=== PATIENT | male | born 1955 | race Caucasian/White ===

== ENCOUNTER 2017-10-13 03:49 | Inpatient (IN) | payer OTHER ==
[2017-10-13] VITALS (16 sets, daily range): BP systolic 88–153; BP diastolic 60–116; PULSE 75–111; TEMP 36.8–37.5; O2SAT 87–100; Ht 182.9 cm; Wt 57.9 kg
[~2017-10-13] VITALS: Ht 182.9 cm; Wt 57.9 kg
--- NOTE | 2017-10-13 03:54 | EMERGENCY ROOM VISIT NOTE ---
History Report prepared by Jatin: Allen Norman Under the Supervision of: Dr. Shantal Mortensen D.O. First contact with patient: 03:53 Chief Complaint: RESPIRATORY DISTRESS Stated Complaint: RESPIRATORY DISTRESS History of Present Illness The patient is a 62 year old male who presents to the Emergency Room via [facility] for worsening respiratory distress. This HPI is obtained via EMS personnel secondary to respiratory distress and intubation of the patient. The patient initially phoned for EMS due to moderate respiratory distress that he noted he had been experiencing since yesterday. EMS administered a Duoneb Albuterol treatment en route to the department. The patient's O2 saturation began to drop during the second Duoneb treatment. EMS explains that the patient's O2 saturation dropped to below 75 percent as he became unresponsive. The patient was coded and cardiopulmonary resuscitation was performed for 3-4 minutes. The patient was intubated and the O2 saturation levels mary to 99%. He has received Epinephrine, Solumedrol, Magnesium, and Albuterol prior to arrival. The patient coded at approximately 0315, 34 minutes prior to arrival. The patient lives on his own and told EMS that his respiratory distress began yesterday. He notes that he used his inhaler 4+ times throughout the day. Source of History: EMS Onset: One Day [employer] Position: chest (Respiratory) Quality: other (Respiratory Distress) Timing: worsening Review of Systems See HPI for pertinent positives & negatives. A total of 10 systems reviewed and were otherwise negative. Past Medical & Surgical COPD Family History unobtainable secondary to pt status. Social History Drug Use: none Marital Status: single Housing Status: lives alone Current/Historical Medications Unable to Obtain Active Prescriptions or Reported Meds Allergies Coded Allergies: No Known Allergies (Unverified , 10/13/17) Physical Exam Vital Signs Date Time Temp Pulse Resp B/P (MAP) Pulse Ox O2 Delivery O2 Flow Rate FiO2 10/13/17 04:51 114/91 10/13/17 04:46 100 30 97 10/13/17 04:40 126/92 10/13/17 04:37 50 10/13/17 04:36 101 29 123/93 96 10/13/17 04:35 150/145 10/13/17 04:26 104 29 97 10/13/17 04:21 38.3 107/97 10/13/17 04:19 97 17 127/113 98 Mechanical Ventilator 49 10/13/17 04:19 102 19 97 10/13/17 04:11 112/82 10/13/17 04:02 96 Mechanical Ventilator 10/13/17 04:02 97 Mechanical Ventilator 49 10/13/17 04:01 141/116 10/13/17 03:59 100 10/13/17 03:53 127/113 Physical Exam General: Patient is unresponsive, endotracheal tube is in place on ventilator. HEENT: Head - normocephalic and atraumatic. Pupils are 2 millimeters and nonreactive. Extraocular eye muscles are intact and sclera are anicteric. Ears - bilaterally patent canals with noninjected tympanic membranes and no evidence of hemotympanum. Nose - moist nasal mucosa without discharge. Mouth - ET tube is in place. Oropharynx is nonerythematous and there is no tonsillar exudate or edema noted. Neck: Supple; no JVD, cervical lymphadenopathy or nuchal rigidity. Heart: Tachycardic rate with normal rhythm. There is a normal S1 and S2 with no murmurs, clicks, or gallops appreciated. Lungs: There was minimal air exchange to auscultation and slight end expiratory wheeze . Abdomen: Distended, completely nontender, with good bowel sounds. There are no palpable pulsatile masses or hepatosplenomegaly. There is no guarding, rigidity , or rebound noted. Extremities: No evidence of cyanosis, clubbing, or edema. There are easily palpable peripheral pulses. Neuro: GCS of 4. Unresponsive to painful or verbal stimuli. Medical Decision & Procedures ER Provider Diagnostic Interpretation: Radiology results as stated below per my review and the radiologist's interpretation: CHEST X-RAY portable upright CHEST X-RAY #1: Shows endotracheal tube at the [place]. Hyper-aerated lung serra present. No obvious pulmonary consolidation or pneumothorax. CHEST X-RAY #2: the endotracheal tube was 2-3 cm above the madelin. Laboratory Results 10/13/17 03:10 Red Blood Count 5.16, Mean Corpuscular Volume 93.2, Mean Corpuscular Hemoglobin 31.6, Mean Corpuscular Hemoglobin Concent 33.9, Mean Platelet Volume 10.4, Neutrophils (%) (Auto) 59.4, Lymphocytes (%) (Auto) 19.5, Monocytes (%) (Auto) 20.4, Eosinophils (%) (Auto) 0.1, Basophils (%) (Auto) 0.2, Neutrophils # (Auto ) 4.80, Lymphocytes # (Auto) 1.58, Monocytes # (Auto) 1.65, Eosinophils # (Auto ) 0.01, Basophils # (Auto) 0.02 10/13/17 03:10 Test 10/13/17 03:10 10/13/17 04:04 10/13/17 04:10 10/13/17 04:16 White Blood Count 8.09 K/uL (4.8-10.8) Red Blood Count 5.16 M/uL (4.7-6.1) Hemoglobin 16.3 g/dL (14.0-18.0) Hematocrit 48.1 % (42-52) Mean Corpuscular Volume 93.2 fL (80-100) Mean Corpuscular Hemoglobin 31.6 pg (25-34) Mean Corpuscular Hemoglobin Concent 33.9 g/dl (32-36) Platelet Count 221 K/uL (130-400) Mean Platelet Volume 10.4 fL (7.4-10.4) Neutrophils (%) (Auto) 59.4 % Lymphocytes (%) (Auto) 19.5 % Monocytes (%) (Auto) 20.4 % Eosinophils (%) (Auto) 0.1 % Basophils (%) (Auto) 0.2 % Neutrophils # (Auto) 4.80 K/uL (1.4-6.5) Lymphocytes # (Auto) 1.58 K/uL (1.2-3.4) Monocytes # (Auto) 1.65 K/uL (0.11-0.59) Eosinophils # (Auto) 0.01 K/uL (0-0.5) Basophils # (Auto) 0.02 K/uL (0-0.2) RDW Standard Deviation 47.1 fL (36.4-46.3) RDW Coefficient of Variation 13.9 % (11.5-14.5) Immature Granulocyte % (Auto) 0.4 % Immature Granulocyte # (Auto) 0.03 K/uL (0.00-0.02) Prothrombin Time 10.3 SECONDS (9.0-12.0) Prothromb Time International Ratio 1.0 (0.9-1.1) Activated Partial Thromboplast Time 26.5 SECONDS (21.0-31.0) Partial Thromboplastin Ratio 1.0 Anion Gap 7.0 mmol/L (3-11) Est Creatinine Clear Calc Drug Dose 83.2 ml/min Estimated GFR () 88.8 Estimated GFR (Non- 76.6 BUN/Creatinine Ratio 19.9 (10-20) Calcium Level 8.6 mg/dl (8.5-10.1) Total Bilirubin 0.3 mg/dl (0.2-1) Aspartate Amino Transf (AST/SGOT) 18 U/L (15-37) Alanine Aminotransferase (ALT/SGPT) 27 U/L (12-78) Alkaline Phosphatase 65 U/L (45-117) Total Creatine Kinase 262 U/L (39-308) Creatine Kinase MB 2.3 ng/ml (0.5-3.6) Troponin I 0.025 ng/ml (0-0.045) Pro-B-Type Natriuretic Peptide 479 pg/ml (0-900) Total Protein 8.4 gm/dl (6.4-8.2) Albumin 4.3 gm/dl (3.4-5.0) Globulin 4.1 gm/dl (2.5-4.0) Albumin/Globulin Ratio 1.0 (0.9-2) Creatine Kinase MB Ratio (0-3.0) Bedside Blood Gas pH (LAB) 7.24 (7.35-7.45) Bedside Blood Gas pCO2 (LAB) 62 mmHg (35-46) Bedside Blood Gas pO2 (LAB) 305 mmHg (80-95) Bedside Blood Gas HCO3 (LAB) 26 meq/L (19-24) Bedside Blood Gas Total CO2 28 mEq/l (24-31) Bedside Blood Gas Base Excess (LAB) -1.0 meq/L (-9-1.8) Bedside Blood Gas O2 Saturation 100.0 % (90-95) Test 10/13/17 04:21 10/13/17 04:25 10/13/17 05:24 Urine Color YELLOW Urine Appearance CLEAR (CLEAR) Urine pH 5.5 (4.5-7.5) Urine Specific [place] 1.021 (1.000-1.030) Urine Protein 2+ (NEG) Urine Glucose (UA) 3+ (NEG) Urine Ketones NEG (NEG) Urine Occult Blood 2+ (NEG) Urine Nitrite NEG (NEG) Urine Bilirubin NEG (NEG) Urine Urobilinogen NEG (NEG) Urine Leukocyte Esterase NEG (NEG) Urine WBC (Auto) 10-30 /hpf (0-5) Urine RBC (Auto) 5-10 /hpf (0-4) Urine Hyaline Casts (Auto) 5-10 /lpf (0-5) Urine Epithelial Cells (Auto) >30 /lpf (0-5) Urine Bacteria (Auto) 1+ (NEG) Urine Renal Epithelial Cells /lpf (0-5) Urine Pathogenic Casts 1-5 GRANULAR CASTS /lpf (0) Urine Yeast (Auto) BUDDING (NONE PRSENT) Bedside Lactic Acid Venous 3.69 mmol/L (0.90-1.70) Lactic Acid Level 3.0 mmol/L (0.4-2.0) Laboratory results per my review. Medications Administered Medications (Trade) Dose Ordered Sig/Brook Route Start Time Stop Time Status Last Admin Dose Admin Midazolam HCl (Versed Inj) 10 mg STK-MED ONCE .ROUTE 10/13/17 03:57 10/13/17 03:58 DC 10/13/17 03:57 5 MG Albuterol (Ventolin Hfa Inhaler) 60 puffs STK-MED ONCE INH 10/13/17 04:17 10/13/17 04:18 DC 10/13/17 04:37 60 PUFFS Propofol (Diprivan Iv Emulsion 20ml Vial) 200 mg STK-MED ONCE IV 10/13/17 05:06 10/13/17 05:07 DC 10/13/17 05:25 40 MG Propofol (Diprivan Iv Emulsion 100ml Vial) 1 dose STK-MED ONCE IV 10/13/17 05:06 10/13/17 05:07 DC 10/13/17 05:25 1 DOSE Piperacillin Sod/ Tazobactam Sod (Zosyn Iv) 4.5 gm NOW STAT IV 10/13/17 05:13 10/13/17 05:24 DC 10/13/17 05:44 4.5 GM Procedure Medications Ordered: Versed, Albuterol. Propofol bolus Propofol drip ECG Indication: SOB/dyspnea Rate (beats per minute): 95 Rhythm: normal sinus Findings: PVC, ST depression (Inferior) ED Course 0349: Past medical records reviewed. The patient was evaluated in room B1. A complete history and physical exam was performed. Labs were drawn as above. A portable chest x-ray was obtained. A 12-lead EKG was obtained. The endotracheal tube was pulled back by 2 cm. 0357: The patient started to metzger the vent. I Ordered Versed 5 mg IV. 0417: Ordered Albuterol 10 puffs INH. 0438: I discussed the case with Eleazar Chao [facility] Critical Care at this time. 0440: I discussed the case at the bedside with the PA. 0445: I attempted to call the patient's name but he did not respond. He will withdraw his legs to painful stimuli. The patient was bolused with 40 mg of IV propofol and started on a propofol drip at 10 mcg/kg/m. 0449: I discussed the case with Linsey Yisel at this time. She states that her and her are probably Liborio's closest friends. He does not have any family. The patient went out with Liborio on Friday night, they said he seemed to have a cold. 0459: I discussed the case with Dr. Jones Adams Hospitalist and he will put the order in for inpatient bed 0509: The patient began bucking the vent again at this time. His propofol drip was increased to 15 mcg/kg/m. Medical Decision The patient is a 62 year old male who presents to the Emergency Department in respiratory distress. Differential Diagnosis includes; Sepsis, pneumonia, hypercarbic respiratory failure, COPD exacerbation, cardiac arrest, respiratory arrest. Laboratory Studies were reviewed and show; Normal white count, stable hemoglobin and hematocrit, lactic acid of 3.69, BUN of 21, Creatinine of 1.0, LFTs are normal, glucose of 111, LFTs are normal, CNB of 2.3, Troponin of 0.025 , normal coagulation studies. Arterial Blood Gas reading was reviewed and shows; pH of 7.24, PCO2 of 62, PO2 of 305, bicarb of 26 which is consistent with respiratory acidosis. This is a 62-year-old male patient who has had increasing respiratory distress over the past 24 hours. He has a history of COPD. He called EMS this evening. Upon their arrival, the found the patient outside of his trailer in mild respiratory distress. O2 saturations were in the 70s. The patient began to receive a DuoNeb treatment. His O2 saturations initially improved for EMS. However the wheezing persisted and he was then placed on albuterol. He was given IV Solu-Medrol and started on a magnesium drip. During this intervention , the patient went unresponsive. EMS performed an elective intubation. After securing the endotracheal tube, the patient went asystolic for approximately 3- 4 minutes. Chest compressions and bag valve ventilation were performed through the ET tube. The patient received one cardiac dose of epi. The patient was found to be febrile here in the emergency department. A septic protocol was performed. We did attempt to contact the next of kin. We were able to get some basic information from [facility] as this is the typical place where the patient goes for his healthcare. He has no known allergies. His PCP is Dr. Gramajo. His baseline creatinine is 1.12. His baseline hemoglobin is 15.3. The patient takes nebulizers and inhalers at home. He is currently being treated with prednisone and he takes lisinopril daily. Head Trauma GCS Score: 4 Medication Reconcilliation Current Medication List: was personally reviewed by me Blood Pressure Screening Patient's blood pressure: Normal blood pressure Consults Time Called: 043 Consulting Physician: Eleazar Delgado PA-C [facility] [place] Returned Call: [phone] I discussed the case with Eleazar [facility] Critical [facility] at this time. Additional Consults: Time Called: [phone] Consulted Physician: Dr. Goldman Returned Call: [phone] Additional Comments: I discussed the case with Dr. Jones Adams Hospitalist he will evaluate the patient for further treatment. Impression Primary Impression: Acute respiratory failure Additional Impression: Cardiac arrest Critical Care I have personally spent greater than 90 minutes of critical care time in the direct management of this patient. This includes bedside care, interpretation of diagnostic studies, and testing, discussion with consultants, patient, and family members, and other required patient management activities. This 90 minutes is in excess of all separately billable procedures. Scribe Attestation The scribe's documentation has been prepared under my direction and personally reviewed by me in its entirety. I confirm that the note above accurately reflects all work, treatment, procedures, and medical decision making performed by me. Departure Information Dispostion Being Evaluated By Hospitalist Prescriptions Unable to Obtain Active Prescriptions or Reported Meds Patient Instructions Asthma - [facility], COPD - [facility], Croup - [facility], My [place] [facility] Problem Qualifiers Primary Impression: Acute respiratory failure Respiratory failure complication: hypoxia and hypercapnia Qualified Codes: J96.01 - Acute respiratory failure with hypoxia; J96.02 - Acute respiratory failure with hypercapnia
[2017-10-13] MEDS ORDERED: MIDAZOLAM HCL 5 MG/ML 2ML VIAL ONE (03:57)
[2017-10-13 04:16] LABS: BASO % 0.2 %; BASO ABS # 0.02 K/uL (0-0.2); COMPLETE YES; EOS % 0.1 %; HEMATOCRIT 48.1 % (42-52); IG% 0.4 %; LYMPH % 19.5 %; LYMPH ABS # 1.58 K/uL (1.2-3.4); MEAN CELL VOLUME 93.2 fL (80-100); MEAN CORPUSCULAR HEMOGLOBIN 31.6 pg (25-34); MEAN CORPUSCULAR HGB CONC 33.9 g/dl (32-36); MEAN PLATELET VOLUME 10.4 fL (7.4-10.4); MONO % 20.4 %; NEUT % 59.4 %; PLATELET COUNT 221 K/uL (130-400); RED BLOOD COUNT 5.16 M/uL (4.7-6.1); WHITE BLOOD COUNT 8.09 K/uL (4.8-10.8)
[2017-10-13] MEDS ORDERED: ALBUTEROL HFA 8 GM INHALER INH ONE (04:17)
[2017-10-13 04:30] LABS: PROTHROMBIN TIME (PATIENT) 10.3 SECONDS (9.0-12.0)
[2017-10-13 04:31] LABS: BUN/CREATININE RATIO 19.9 (10-20); CALCIUM 8.6 mg/dl (8.5-10.1); CREATININE 1.04 mg/dl (0.60-1.40); POTASSIUM 3.5 mmol/L (3.5-5.1)
[2017-10-13 04:34] LABS: URINE APPEARANCE CLEAR (CLEAR); URINE BILIRUBIN NEG (NEG); URINE COLOR YELLOW; URINE EPITHELIAL CELL AUTO >30 /lpf (0-5); URINE NITRITE NEG (NEG); URINE PH 5.5 (4.5-7.5); URINE SPECIFIC GRAVITY 1.021 (1.000-1.030); UROBILINOGEN NEG (NEG); ZZURINE CULT IF INDIC CATH YES
[2017-10-13 04:36] LABS: CKMB/CK RATIO 0.9 (0-3.0)
[2017-10-13 04:40] LABS: ISTAT ARTERIAL BLOOD GAS HCO3 26 meq/L (19-24); ISTAT ARTERIAL BLOOD GAS PCO2 62 mmHg (35-46); ISTAT ARTERIAL BLOOD GAS PO2 305 mmHg (80-95); ISTAT ARTERIAL BLOOD GAS pH 7.24 (7.35-7.45); ISTAT CARBON DIOXIDE 28 mEq/l (24-31)
[2017-10-13 04:54] LABS: MANUAL MICROSCOPIC REQUIRED? NO; REVIEW REQ? YES
[2017-10-13] MEDS ORDERED: PROPOFOL IV EMULSION 10 MG/ML 100 ML VIAL IV ONE (05:06)
[2017-10-13] MEDS ORDERED: PROPOFOL IV EMULSION 10 MG/ML 20 ML VIAL IV ONE (05:06)
[2017-10-13 05:09] LABS: URINE PATH CASTS 1-5 GRANULAR CASTS /lpf (0)
[2017-10-13] MEDS ORDERED: PIPERACILLIN/TAZOBACTAM 4.5 GM/100ML D5W IV STA (05:13)
[2017-10-13] MEDS ORDERED: VANCOMYCIN INJ 1,000 MG in SODIUM CHLORIDE 0.9% 250ML 250 ML IV STA (05:13)
[2017-10-13] MEDS ORDERED: SODIUM CHLORIDE 0.9% 1000ML 1,000 ML IV SCH (05:15)
[2017-10-13] MEDS ORDERED: MIDAZOLAM 125MG/250ML D5W 250 ML IV PRN (05:29)
[2017-10-13] MEDS ORDERED: CISATRACURIUM IV BOLUS & DRIP IV STA (05:29)
[2017-10-13] MEDS ORDERED: ARTIFICIAL TEARS OP OINT 3.5 GM TUBE OPB PRN (05:30)
[2017-10-13] MEDS ORDERED: MEPERIDINE HCL 25 MG/ML CARP IV PRN (05:30)
[2017-10-13] MEDS ORDERED: PATIENT'S ALLERGY INFO NEEDS ENTERED SCH (05:30)
--- NOTE | 2017-10-13 05:42 | History and Physical ---
History & Physical Date & Time of Service: Oct 13, 2017 at 05:28 Chief Complaint: Respiratory Distress Primary Care Physician: No Doctor, Assigned History of Present Illness Source: EMS This is a 62 year old male who called EMS earlier today; the records are obtained from EMS and ED physician. Pt. called EMS due to respiratory distress - EMS was giving a neb treatment en route to the ED and noted that he became severely hypoxic in the 70s. Subsequently developed cardiopulmonary arrest - CPR was performed for around 3-4 minutes - he was given epinephrine, Mg, and solu-medrol - Was intubated. Upon presentation to the ED - noted to have a fever. Lab work was performed and he was noted to have lactic acidosis. ABGs suggested significant acidosis and hypercapnia. Patient on propofol drip and intubated at this time. Social History Smoking Status: Unknown if Ever Smoked Drug Use: none Marital Status: single Allergies Coded Allergies: No Known Allergies (Unverified , 10/13/17) Home Medications Unable to Obtain Active Prescriptions or Reported Meds Review of Systems Unable to obtain due to intubation Physical Exam Vital Signs Date Time Temp Pulse Resp B/P (MAP) Pulse Ox O2 Delivery O2 Flow Rate FiO2 10/13/17 04:51 114/91 10/13/17 04:46 100 30 97 10/13/17 04:40 126/92 10/13/17 04:37 50 10/13/17 04:36 101 29 123/93 96 10/13/17 04:35 150/145 10/13/17 04:26 104 29 97 10/13/17 04:21 38.3 107/97 10/13/17 04:19 97 17 127/113 98 Mechanical Ventilator 49 10/13/17 04:19 102 19 97 10/13/17 04:11 112/82 10/13/17 04:02 96 Mechanical Ventilator 10/13/17 04:02 97 Mechanical Ventilator 49 10/13/17 04:01 141/116 10/13/17 03:59 100 10/13/17 03:53 127/113 General Appearance: + pertinent finding (Patient intubated, sedated) Head: normocephalic, atraumatic Eyes: normal inspection ENT: hearing grossly normal Respiratory/Chest: no respiratory distress, no accessory muscle use, + pertinent finding (intubated) Cardiovascular: regular rate, rhythm, no edema, no murmur Abdomen/GI: normal bowel sounds, non tender, soft Genitourinary - Male: + pertinent finding (+Banda) Extremities/Musculoskelatal: normal inspection, no calf tenderness, normal capillary refill, no pedal edema, normal range of motion Neurologic/Psych: + pertinent finding (intubated, sedated, not responding to verbal or tactile stimuli) Skin: + pertinent finding (+pale) Diagnostics Laboratory Results Results Past 24 Hours Test 10/13/17 03:10 10/13/17 04:04 10/13/17 04:10 10/13/17 04:21 Range/Units White Blood Count 8.09 4.8-10.8 K/uL Red Blood Count 5.16 4.7-6.1 M/uL Hemoglobin 16.3 14.0-18.0 g/dL Hematocrit 48.1 42-52 % Mean Corpuscular Volume 93.2 80-100 fL Mean Corpuscular Hemoglobin 31.6 25-34 pg Mean Corpuscular Hemoglobin Concent 33.9 32-36 g/dl Platelet Count 221 130-400 K/uL Mean Platelet Volume 10.4 7.4-10.4 fL Neutrophils (%) (Auto) 59.4 % Lymphocytes (%) (Auto) 19.5 % Monocytes (%) (Auto) 20.4 % Eosinophils (%) (Auto) 0.1 % Basophils (%) (Auto) 0.2 % Neutrophils # (Auto) 4.80 1.4-6.5 K/uL Lymphocytes # (Auto) 1.58 1.2-3.4 K/uL Monocytes # (Auto) 1.65 0.11-0.59 K/uL Eosinophils # (Auto) 0.01 0-0.5 K/uL Basophils # (Auto) 0.02 0-0.2 K/uL RDW Standard Deviation 47.1 36.4-46.3 fL RDW Coefficient of Variation 13.9 11.5-14.5 % Immature Granulocyte % (Auto) 0.4 % Immature Granulocyte # (Auto) 0.03 0.00-0.02 K/uL Prothrombin Time 10.3 9.0-12.0 SECONDS Prothromb Time International Ratio 1.0 0.9-1.1 Activated Partial Thromboplast Time 26.5 21.0-31.0 SECONDS Partial Thromboplastin Ratio 1.0 Sodium Level 139 136-145 mmol/L Potassium Level 3.5 3.5-5.1 mmol/L Chloride Level 101 98-107 mmol/L Carbon Dioxide Level 31 21-32 mmol/L Anion Gap 7.0 3-11 mmol/L Blood Urea Nitrogen 21 7-18 mg/dl Creatinine 1.04 0.60-1.40 mg/dl Est Creatinine Clear Calc Drug Dose 83.2 ml/min Estimated GFR () 88.8 Estimated GFR (Non- 76.6 BUN/Creatinine Ratio 19.9 10-20 Random Glucose 111 70-99 mg/dl Calcium Level 8.6 8.5-10.1 mg/dl Total Bilirubin 0.3 0.2-1 mg/dl Aspartate Amino Transf (AST/SGOT) 18 15-37 U/L Alanine Aminotransferase (ALT/SGPT) 27 12-78 U/L Alkaline Phosphatase 65 45-117 U/L Total Creatine Kinase 262 39-308 U/L Creatine Kinase MB 2.3 0.5-3.6 ng/ml Creatine Kinase MB Ratio 0.9 0-3.0 Troponin I 0.025 0-0.045 ng/ml Pro-B-Type Natriuretic Peptide 479 0-900 pg/ml Total Protein 8.4 6.4-8.2 gm/dl Albumin 4.3 3.4-5.0 gm/dl Globulin 4.1 2.5-4.0 gm/dl Albumin/Globulin Ratio 1.0 0.9-2 Bedside Blood Gas pH (LAB) 7.24 7.35-7.45 Bedside Blood Gas pCO2 (LAB) 62 35-46 mmHg Bedside Blood Gas pO2 (LAB) 305 80-95 mmHg Bedside Blood Gas HCO3 (LAB) 26 19-24 meq/L Bedside Blood Gas Total CO2 28 24-31 mEq/l Bedside Blood Gas Base Excess (LAB) -1.0 -9-1.8 meq/L Bedside Blood Gas O2 Saturation 100.0 90-95 % Urine Color YELLOW Urine Appearance CLEAR CLEAR Urine pH 5.5 4.5-7.5 Urine Specific [place] 1.021 1.000-1.030 Urine Protein 2+ NEG Urine Glucose (UA) 3+ NEG Urine Ketones NEG NEG Urine Occult Blood 2+ NEG Urine Nitrite NEG NEG Urine Bilirubin NEG NEG Urine Urobilinogen NEG NEG Urine Leukocyte Esterase NEG NEG Urine WBC (Auto) 10-30 0-5 /hpf Urine RBC (Auto) 5-10 0-4 /hpf Urine Hyaline Casts (Auto) 5-10 0-5 /lpf Urine Epithelial Cells (Auto) >30 0-5 /lpf Urine Bacteria (Auto) 1+ NEG Urine Renal Epithelial Cells 0-5 /lpf Urine Pathogenic Casts 1-5 GRANULAR CASTS 0 /lpf Urine Yeast (Auto) BUDDING NONE PRSENT Test 10/13/17 04:25 10/13/17 05:24 Range/Units Bedside Lactic Acid Venous 3.69 0.90-1.70 mmol/L Microbiology Results 10/13/17 Blood Culture, Received Pending 10/13/17 Blood Culture, Received Pending 10/13/17 Urine Culture, Received Pending EKG Sinus rhythm with Premature supraventricular complexes Nonspecific ST and T wave abnormality Impression Assessment and Plan Patient is a 62 year old male presented secondary to respiratory distress and subsequently cardiopulmonary arrest Cardiopulmonary Arrest unsure of the underlying etiology seems to have had sudden respiratory distress coded on the way to the hospital, resuscitated after 3-4 minutes of CPR, intubated on the field Brought to the ED - fevers, lactic acidosis, ABG suggests acidosis, hypercapnia hypothermia protocol as per ICU vent management as per ICU started Vancomycin + Zosyn blood cultures, urine culture pending started IVFs repeat lactic acid - elevated due to hypoxia, but started on fluids/abx. in case of underlying infection trend cardiac markers, check echo fire chief deputy consulted DVT ppx Lovenox FULL CODE VTE Prophylaxis VTE Risk Assessment Done? Y/N: Yes Risk Level: Not Assessed
[2017-10-13] MEDS ORDERED: VANCOMYCIN INJ 2,000 MG in SODIUM CHLORIDE 0.9% 500ML 500 ML IV STA (05:57)
[2017-10-13] MEDS ORDERED: CISATRACURIUM BESYLATE INJ 40 MG in SODIUM CHLORIDE 0.9% 100ML 80 ML IV PRN (06:00)
--- NOTE | 2017-10-13 06:00 | Critical Care Consultation ---
Critical Care Consultation Date of Consultation: Oct 13, 2017. Attending Physician: Reason for Consultation: 62-year-old male with witnessed cardiac arrest requiring CPR for 3-4 minutes and epinephrine with return of spontaneous circulation. Patient is candidate for therapeutic hypothermia requiring close ICU monitoring. History of Present Illness Patient is a 62-year-old male who presented to the emergency department intubated after a witnessed cardiac arrest requiring CPR for 3-4 minutes with one dose of epinephrine. Patient had returned to spontaneous circulation after this time. He is required minimal sedation. He received 5 mg Versed intravenously in the emergency department. Per emergency department provider and records, the patient had contacted 911 as he felt unwell for the past 24 hours. He had shortness of breath and worsening cough. The patient does have a history of COPD with exacerbations. Upon arrival, the patient was awake and conversant with EMS crew. They found his oxygen saturation to be in the 70s. At this time, he received an albuterol treatment. His pulse oximetry improved to the 90s. He was actually holding the device while administering his own treatment when he dropped the device and became extremely bradycardic in the 20s. While preparing to intubate, the patient went asystolic. 3-4 minutes of CPR and 1 dose of epinephrine was a grocery buyer the patient with ROSC. The patient has no leukocytosis. He has no worrisome anemia. No significant metabolic arrangement. Elevated lactic acid at 3.69. Initial troponin negative. ABG demonstrates pH7.24, pCO2 62, pO2 305, HCO3 26. Emergency Department staff was able to speak to the patient's friend who informs them that he has no immediate family. Medical records were sought after at the [facility] emergency department where the patient typically seeks medical care. Past Medical/Surgical History COPD Unable to obtain secondary to patient's state of intubation and unresponsiveness. Family History Unable to obtain secondary to patient's state of unresponsiveness and intubation. Social History Unable to obtain secondary to patient's state of unresponsiveness and intubation. Smoking Status: Unknown if Ever Smoked Drug Use: none Marital Status: single Housing Status: lives alone Allergies Coded Allergies: No Known Allergies (Unverified , 10/13/17) Home Medications Unable to Obtain Active Prescriptions or Reported Meds Current Inpatient Medications Current Inpatient Medications Medications (Trade) Dose Ordered Sig/Brook Route Start Time Stop Time Status Last Admin Dose Admin Enoxaparin Sodium (Lovenox Inj) 40 mg Q24H SQ 10/13/17 05:00 11/12/17 04:59 UNV Sodium Chloride 1,000 ml @ 100 mls/hr Q10H IV 10/13/17 05:15 11/12/17 05:14 UNV Piperacillin Sod/ Tazobactam Sod 3.375 gm/Dextrose 115 ml @ 28.75 mls/ hr Q8 IV 10/13/17 06:00 10/15/17 05:59 UNV Vancomycin HCl 1000 mg/Sodium Chloride 270 ml @ 125 mls/hr Q12 IV 10/13/17 09:00 10/15/17 08:59 UNV Vancomycin HCl 1000 mg/Sodium Chloride 270 ml @ 125 mls/hr NOW STAT IV 10/13/17 05:13 10/13/17 07:22 UNV Parenteral Electrolyte Solution 1,000 ml @ 100 mls/hr Q10H IV 10/13/17 05:30 11/12/17 05:29 UNV Miscellaneous Information (Patient'S Allergy Info Needs Entered) 1 ea Q30M N/A 10/13/17 05:30 11/12/17 05:29 Artificial Tears (Lacri-Lube Oph Oint) 1 appln Q2H PRN OPB 10/13/17 05:30 11/12/17 05:29 UNV Pantoprazole Sodium 40 mg/ Syringe 10 ml @ 5 mls/min DAILY@11 IV 10/13/17 11:00 11/12/17 10:59 UNV Midazolam HCl 250 ml @ 0 mls/hr Q0M STAT IV 10/13/17 05:29 10/13/17 05:30 UNV Fentanyl Citrate 250 ml @ 0 mls/hr Q0M IV 10/13/17 05:29 10/27/17 05:28 UNV Cisatracurium Besylate (Nimbex IV BOLUS & DRIP) 1 ea NOW STAT IV 10/13/17 05:29 10/13/17 05:30 UNV Meperidine HCl (Demerol Inj) 25 mg Q2H PRN IV 10/13/17 05:30 10/27/17 05:29 UNV Ipratropium Energy (Atrovent Hfa Inhaler) 4 puffs Q4 INH 10/13/17 08:00 11/12/17 07:59 UNV Review of Systems Unable to obtain. Physical Exam Date Time Temp Pulse Resp B/P (MAP) Pulse Ox O2 Delivery O2 Flow Rate FiO2 10/13/17 04:51 114/91 10/13/17 04:46 100 30 97 10/13/17 04:40 126/92 10/13/17 04:37 50 10/13/17 04:36 101 29 123/93 96 10/13/17 04:35 150/145 10/13/17 04:26 104 29 97 10/13/17 04:21 38.3 107/97 10/13/17 04:19 97 17 127/113 98 Mechanical Ventilator 49 10/13/17 04:19 102 19 97 10/13/17 04:11 112/82 10/13/17 04:02 96 Mechanical Ventilator 10/13/17 04:02 97 Mechanical Ventilator 49 10/13/17 04:01 141/116 10/13/17 03:59 100 10/13/17 03:53 127/113 VITAL SIGNS - Vital signs and nursing notes were reviewed. GENERAL - 62-year-old male appearing his stated age who is intubated with dyssynchronous breathing with the ventilator. SKIN - Without rashes. HEAD - NC/AT. EYES - Pupils equal and sluggish bilaterally. EARS - No deformities of external structures noted on gross examination bilaterally. NOSE - Midline and without cyanosis. MOUTH/OROPHARYNX - Without perioral cyanosis. NECK - Neck with FROM. Supple to palpation. LUNGS - Chest wall symmetric without accessory muscle use, intercostals retractions, or central cyanosis. Diffuse inspiratory and expiratory wheezes appreciated throughout all lung serra. CARDIAC - RRR with S1/S2. No murmur, rubs, or gallops appreciated. ABDOMEN - Abdominal contour obese without pulsations or visible masses. BS normoactive all four quadrants. No tenderness, palpable masses, hepatosplenomegaly, or ascites noted. EXTREMITIES - No clubbing or peripheral cyanosis. No pretibial edema present. +3 /5 radial and dorsalis pedis pulses palpated throughout. NEUROLOGIC - Unresponsive to painful stimulus. Laboratory Results Last 24 Hours Test 10/13/17 03:10 10/13/17 04:04 10/13/17 04:10 10/13/17 04:21 White Blood Count 8.09 K/uL Red Blood Count 5.16 M/uL Hemoglobin 16.3 g/dL Hematocrit 48.1 % Mean Corpuscular Volume 93.2 fL Mean Corpuscular Hemoglobin 31.6 pg Mean Corpuscular Hemoglobin Concent 33.9 g/dl Platelet Count 221 K/uL Mean Platelet Volume 10.4 fL Neutrophils (%) (Auto) 59.4 % Lymphocytes (%) (Auto) 19.5 % Monocytes (%) (Auto) 20.4 % Eosinophils (%) (Auto) 0.1 % Basophils (%) (Auto) 0.2 % Neutrophils # (Auto) 4.80 K/uL Lymphocytes # (Auto) 1.58 K/uL Monocytes # (Auto) 1.65 K/uL Eosinophils # (Auto) 0.01 K/uL Basophils # (Auto) 0.02 K/uL RDW Standard Deviation 47.1 fL RDW Coefficient of Variation 13.9 % Immature Granulocyte % (Auto) 0.4 % Immature Granulocyte # (Auto) 0.03 K/uL Prothrombin Time 10.3 SECONDS Prothromb Time International Ratio 1.0 Activated Partial Thromboplast Time 26.5 SECONDS Partial Thromboplastin Ratio 1.0 Sodium Level 139 mmol/L Potassium Level 3.5 mmol/L Chloride Level 101 mmol/L Carbon Dioxide Level 31 mmol/L Anion Gap 7.0 mmol/L Blood Urea Nitrogen 21 mg/dl Creatinine 1.04 mg/dl Est Creatinine Clear Calc Drug Dose 83.2 ml/min Estimated GFR () 88.8 Estimated GFR (Non- 76.6 BUN/Creatinine Ratio 19.9 Random Glucose 111 mg/dl Calcium Level 8.6 mg/dl Total Bilirubin 0.3 mg/dl Aspartate Amino Transf (AST/SGOT) 18 U/L Alanine Aminotransferase (ALT/SGPT) 27 U/L Alkaline Phosphatase 65 U/L Total Creatine Kinase 262 U/L Creatine Kinase MB 2.3 ng/ml Creatine Kinase MB Ratio 0.9 Troponin I 0.025 ng/ml Pro-B-Type Natriuretic Peptide 479 pg/ml Total Protein 8.4 gm/dl Albumin 4.3 gm/dl Globulin 4.1 gm/dl Albumin/Globulin Ratio 1.0 Bedside Blood Gas pH (LAB) 7.24 Bedside Blood Gas pCO2 (LAB) 62 mmHg Bedside Blood Gas pO2 (LAB) 305 mmHg Bedside Blood Gas HCO3 (LAB) 26 meq/L Bedside Blood Gas Total CO2 28 mEq/l Bedside Blood Gas Base Excess (LAB) -1.0 meq/L Bedside Blood Gas O2 Saturation 100.0 % Urine Color YELLOW Urine Appearance CLEAR Urine pH 5.5 Urine Specific [place] 1.021 Urine Protein 2+ Urine Glucose (UA) 3+ Urine Ketones NEG Urine Occult Blood 2+ Urine Nitrite NEG Urine Bilirubin NEG Urine Urobilinogen NEG Urine Leukocyte Esterase NEG Urine WBC (Auto) 10-30 /hpf Urine RBC (Auto) 5-10 /hpf Urine Hyaline Casts (Auto) 5-10 /lpf Urine Epithelial Cells (Auto) >30 /lpf Urine Bacteria (Auto) 1+ Urine Renal Epithelial Cells /lpf Urine Pathogenic Casts 1-5 GRANULAR CASTS /lpf Urine Yeast (Auto) BUDDING Test 10/13/17 04:25 10/13/17 05:24 10/13/17 05:34 Bedside Lactic Acid Venous 3.69 mmol/L Diagnostic Results Initial chest x-ray reveals ET tube near the RIGHT mainstem bronchus. Repeat film demonstrates ET tube in appropriate position. No pneumothorax appreciated per my interpretation. No acute infiltrates noted. Radiologist's impression unavailable to time of dictation. Assessment & Plan (1) COPD with exacerbation (2) Cardiac arrest (3) Acute respiratory failure Reason Critically Ill: 62-year-old male with witnessed cardiac arrest requiring CPR for 3-4 minutes and epinephrine with return of spontaneous circulation. Patient is candidate for therapeutic hypothermia requiring close ICU monitoring. Neuro - * CAM ICU: Unable to assess 2/2 RASS -4 * Sedation: orders for Versed/Fentanyl - Propofol not tolerated in ED 2/2 hypotension. * Paralysis: Nimbex gtt 2/2 Therapeutic Hypothermia - Train of 4 per protocol. * Neuro checks per protocol. * Spoke with Dr. Hyatt who agrees with 24 hr EEG per protocol. * Appreciate consultation. Cardiac - * Witnessed Cardiac Arrest requiring 3-4 min CPR w/ 1 dose of epinephrine w/ ROSC - Initiated Code Arctic (Therapeutic Hypothermia): * Orders for goal of hypothermia between 32-34C for 24 hrs w/ slow rewarming. * Echo Ordered. * Consult Cardiology. * Pressors for support if needed. * Will insert A-line for accurate BP monitoring. * Telemetry * Unknown history at this point. Respiratory - * History of COPD w/ acute exacerbation requiring intubation: * Aggressive pulmonary toilet. * Albuterol/Atrovent * Solu-Medrol * Current vent settings: 12min/500mL/5PEEP/50% * Poor lung sounds - ??utility of bronch * Serial CXRs GI - * Prophylaxis - Protonix * NPO - consider tube feeds if not requiring pressors. RENAL/LYTES - * No acute metabolic derangement. * Monitor electrolytes - replace appropriately - * Banda Catheter in place. * Strict I&Os ENDO - * Unknown h/o DM * BSGs per protocol. HEME - * Stable H&H. * Will monitor daily. ID - * Will cover with Vanc/Zosyn in the setting of Acute Respiratory Failure 2/2 COPD exacerbation. * Blood Cultures Pending * ??BAL if Bronch felt needed. * Added ProCal - can trend. * Lactic Acid elevated likely 2/2 hypoxia - will trend as respiratory status improves. LINES/IV ACCESS - * PIVs intact. * Will place CVL with emergent consent. * Will place Art Line with emergent consent. * Banda Catheter. DVT PROPHYLAXIS - * Lovenox I have personally spent 45 minutes of critical care time in the direct management of this patient. This is a life/limb threatening event. This includes time spent evaluating patient, direct bedside care, chart review, placing orders, interpretation of diagnostic studies, discussion with consultants, patient, and family members, as well as other required patient management activities. This time is exclusive of all separately billable procedures, and teaching time and separate from and in addition to any other critical care service time. Thank you for this consultation allow us to be part of this patient's care. Please refer to my attending physician's documentation for any further recommendations. I have personally evaluated and examined this patient. I agree with assessment and plan of Guera Chao PA-C. Stopped hypothermia protocol secondary to patient not having V. tach nor V. fib and fevers suggestive of a infective process. Problem Qualifiers (1) Acute respiratory failure: Respiratory failure complication: hypoxia and hypercapnia Qualified Codes: J96.01 - Acute respiratory failure with hypoxia; J96.02 - Acute respiratory failure with hypercapnia
[2017-10-13] MEDS ORDERED: VANCOMYCIN CONSULT ACTIVE PRN (07:00)
[2017-10-13] MEDS ORDERED: PIPERACILL/TAZOBAC CONSULT ACTIVE PRN (07:00)
--- NOTE | 2017-10-13 07:07 | DIAGNOSTIC IMAGING REPORT ---
HEAD CT NONCONTRAST CT DOSE: 1228.53 mGy.cm HISTORY: Altered mental status. TECHNIQUE: Multiaxial CT images of the head were performed without the use of intravenous contrast. Automated exposure control was utilized for this study. A dose lowering technique was utilized adhering to the principles of ALARA. Comparison: None. Findings: Retention cysts within the maxillary sinuses. The mastoid air cells are clear. Mild motion artifact. The calvarium and skull base are intact. There is no mass, hematoma, midline shift, acute infarct. White matter hypodensity is nonspecific but suggestive of microvascular ischemic change. The ventricles and sulci demonstrate mild age-related involutional changes. Impression: No acute intracranial abnormality. Atrophy and microvascular ischemic changes. Electronically signed by: Sadiq Beckford M.D. 10/13/2017 7:06 AM Dictated Date/Time: 10/13/2017 7:04 AM
--- NOTE | 2017-10-13 07:44 | DIAGNOSTIC IMAGING REPORT ---
CHEST ONE VIEW PORTABLE HISTORY: Sepsis COMPARISON: None. FINDINGS: The endotracheal tube terminates 3.3 cm and the madelin. The lungs are clear. The heart is normal in size. No pleural effusions. No pneumothorax. There is a defibrillator pad overlying the right chest. IMPRESSION: The endotracheal tube terminates 3.3 cm from the madelin. Electronically signed by: Sadiq Beckford M.D. 10/13/2017 7:43 AM Dictated Date/Time: 10/13/2017 7:42 AM
--- NOTE | 2017-10-13 07:47 | Procedure Note ---
Procedure Note Procedure Date Oct 13, 2017. 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 Hall APC: Eleazar Chao PA-C Indication: Monitoring on Pressors Anesthesia: Lidocaine 1% Emergent Consent was implied secondary to patient's current state. A time-out was completed verifying correct patient, procedure, site, positioning , and implant(s) or special equipment if applicable. Allens test was performed to ensure adequate perfusion. Patients LEFT wrist was prepped and draped in the usual sterile fashion. Ultrasound guidance was used to aid needle placement. A 20g Arrow arterial line was introduced into the LEFT Radial artery. Catheter was threaded, and the needle was removed with appropriate blood return. Vessel was lost and unable to cannulate vessel. Terminated procedure Blood Loss: Minimal Complications: None Procedural Ultrasound Guidance: Procedure Date: 10/13/2017 Indication: BP Monitoring/ABGs Attending: Dr. Hall APC: Eleazar Chao PA-C Artery Identified: YES Line confirmed in Artery with ultrasound: YES Complications: NONE Patient tolerated procedure: WELL
[2017-10-13] MEDS: NORMOSOL R 1,000 ML IV SCH ×3 (07:52→15:34)
[2017-10-13] MEDS: FENTANYL 1250MCG/250ML NSS 250 ML IV SCH (08:03)
[2017-10-13] MEDS: PANTOprazole INJ 40 MG in SYRINGE 0 ML IV SCH (08:03)
[2017-10-13] MEDS: METHYLPREDNISOLONE IV 40 MG in SYRINGE 0 ML IV SCH ×2 (08:03→15:34)
[2017-10-13] MEDS: ENOXAPARIN 40 MG/0.4 ML SYR SQ SCH (08:04)
[2017-10-13] MEDS ORDERED: INFLUENZA VIRUS QUAD VACCINE 0.5 ML SYR IM. ONE (08:30)
[2017-10-13] MEDS ORDERED: PNEUMOCOCCAL POLYSACCHARIDES 25 MCG/0.5 ML VIAL/SYR IM. ONE (08:30)
[2017-10-13] MEDS: IPRATROPIUM BROMIDE HFA INHALER INH SCH ×4 (08:30→20:00)
[2017-10-13] MEDS ORDERED: INFLUENZA ADMINISTRATION CHARGE ONE (08:30)
[2017-10-13] MEDS ORDERED: PNEUMOCOCCAL ADMINISTRATION CHARGE ONE (08:30)
[2017-10-13] MEDS ORDERED: NURSING VERBAL MED ORDER STA (08:39)
[2017-10-13] MEDS ORDERED: SUCCINYLCHOLINE CHLORIDE 20 MG/ML 10 ML VIAL IV ONE (08:44)
--- NOTE | 2017-10-13 08:54 | EEG Procedure Note ---
EEG Procedure Note Date of Service Oct 13, 2017. Start / End Times Start Time: 7:45 AM End Time: 8:04 AM Referring Physician GREGORY Boykin History This is a 62-year-old male who presents with cardiac arrest. EEG for further evaluation for further neurological prognosis and to rule out status epilepticus. Home Medication List Unable to Obtain Active Prescriptions or Reported Meds Inpatient Medication List Current Inpatient Medications Medications (Trade) Dose Ordered Sig/Brook Route Start Time Stop Time Status Last Admin Dose Admin Enoxaparin Sodium (Lovenox Inj) 40 mg Q24H SQ 10/13/17 08:00 11/12/17 07:59 10/13/17 08:04 40 MG Sodium Chloride 1,000 ml @ 100 mls/hr Q10H IV 10/13/17 05:15 11/12/17 05:14 Piperacillin Sod/ Tazobactam Sod 3.375 gm/Dextrose 115 ml @ 28.75 mls/ hr Q8H IV 10/13/17 12:00 10/15/17 11:59 Vancomycin HCl 1000 mg/Sodium Chloride 270 ml @ 125 mls/hr Q12 IV 10/13/17 09:00 10/15/17 08:59 UNV Parenteral Electrolyte Solution 1,000 ml @ 100 mls/hr Q10H IV 10/13/17 05:30 11/12/17 05:29 10/13/17 08:02 100 MLS/HR Artificial Tears (Lacri-Lube Oph Oint) 1 appln Q2H PRN OPB 10/13/17 05:30 11/12/17 05:29 Pantoprazole Sodium 40 mg/ Syringe 10 ml @ 5 mls/min DAILY@11 IV 10/13/17 11:00 11/12/17 10:59 10/13/17 08:03 5 MLS/MIN Midazolam HCl 250 ml @ 0 mls/hr Q0M PRN IV 10/13/17 05:29 11/12/17 05:28 Fentanyl Citrate 250 ml @ 0 mls/hr Q0M IV 10/13/17 05:29 10/27/17 05:28 10/13/17 08:03 10 MLS/HR Meperidine HCl (Demerol Inj) 25 mg Q2H PRN IV 10/13/17 05:30 10/27/17 05:29 Ipratropium Fay (Atrovent Hfa Inhaler) 4 puffs Q4R INH 10/13/17 08:00 11/12/17 07:59 Methylprednisolone Sodium Succinate 40 mg/Syringe 0.64 ml @ 1.5 mls/min Q8H IV 10/13/17 08:00 11/12/17 07:59 10/13/17 08:03 1.5 MLS/MIN Vancomycin HCl (Consult) 1 ea UD PRN N/A 10/13/17 07:00 11/12/17 06:59 Piperacillin Sod/ Tazobactam Sod (Consult) 1 ea UD PRN N/A 10/13/17 07:00 11/12/17 06:59 Miscellaneous Information (Nursing Verbal Med Order) 1 ea ONE STAT N/A 10/13/17 08:39 10/13/17 08:40 UNV Description This is a 21 electrode EEG with a single channel dedicated to limited EKG. The electrodes were placed in accordance with the International 10-20 system. At the start of this recording the patient was intubated in the ICU unresponsive. There was intermittent muscle and electrode artifact. Background was diffusely suppressed (<10uV) with intermittent low amplitude theta/delta frequencies versus artifact. During photic stimulation on video, patient could be seen with supination/pronation repetitive type movements that had no EEG correlation. There was no state changes or sleep transients. Interpretation This is an abnormal routine EEG secondary to diffuse suppression There was no electrographic seizures or epileptiform discharges. Clinical Correlation This EEG indicates a severe encephalopathy of nonspecific etiology. Clinical event of repetitive arm pronation/supination during photic stimulation had no EEG correlation.
[2017-10-13] MEDS ORDERED: VANCOMYCIN INJ 1,000 MG in SODIUM CHLORIDE 0.9% 250ML 250 ML IV SCH (09:00)
[2017-10-13] MEDS ORDERED: ACETAMINOPHEN IV 100 ML IV ONE (09:00)
[2017-10-13] MEDS ORDERED: [UNRECOGNIZED DRUG - REMARK] SCH (09:00)
[2017-10-13] MEDS: PROPOFOL IV EMULSION 10 MG/ML 100 ML VIAL IV PRN ×3 (09:21→21:45)
--- NOTE | 2017-10-13 09:25 | ECHOCARDIOGRAM REPORT ---
*NOTICE TO RECEIVING CONSTITUTION PARTY AGENCY This information is strictly Confidential and protected under [place] law. [place] law prohibits you from making any further disclosure of this information unless further disclosure is expressly permitted by the written consent of the person to whom it pertains or is authorized by law. A general authorization for the release of medical or other information is not sufficient for this purpose. Hospital accepts no responsibility if the information is made available to any other person, INCLUDING THE PATIENT. Interpretation Summary * Name: LUIZA DUFFY Study Date: 10/13/2017 09:33 AM BP: 114/91 mmHg * Patient Location: E106 HR: 82 * : 1955 (M/d/yyyy) Gender: Male Height: 73 in * Age: 62 yrs Ethnicity: CA Weight: 187 lb * Ordering Physician: Lowell Goldman * Performed By: Judith Niño RCS * * Reason For Study: CARDIAC ARREST * BSA: 2.1 m2 * -- Conclusions -- * The study was technically limited due to poor acoustic windows with patient on mechanical ventilation. * Limited views were therefore obtained. Procedure Details * Limited views were obtained. * The study was technically difficult. * There were technical limitations due to patient's supine positioning while on mechanical ventilation Left Ventricle * The left ventricle is grossly normal size. * There is normal left ventricular wall thickness. * The left ventricular ejection fraction is grossly normal. * The images are insufficient to allow assessment of regional wall motion. Right Ventricle * The right ventricular chamber size and systolic function are grossly normal. Mitral Valve * There is no mitral valve stenosis. * There is no mitral regurgitation noted. Tricuspid Valve * The tricuspid valve is not well visualized. Aortic Valve * Aortic valve stenosis is not assessed. * There is no significant aortic regurgitation. Pulmonic Valve * The PV is not visualized. Pericardium/Pleural * There is no pericardial effusion. Great Vessels * Normal inferior vena cava size and collapsability with sniff indicates a normal right atrial pressure of 3 mmHg MMode 2D Measurements and Calculations IVSd 1.5 cm IVSs 2.2 cm LVIDd 4.0 cm LVIDs 2.5 cm LVPWd 1.2 cm LVPWs 1.3 cm IVS/LVPW 1.3 FS 38.6 % EDV(Teich) 71.9 ml ESV(Teich) 22.0 ml EF(Teich) 69.4 % EDV(cubed) 66.2 ml ESV(cubed) 15.3 ml EF(cubed) 76.8 % % IVS thick 44.0 % % LVPW thick 9.8 % LV mass(C)d 204.5 grams LV mass(C)dI 97.8 grams/m\S\2 LV mass(C)s 168.6 grams LV mass(C)sI 80.6 grams/m\S\2 SV(Teich) 49.9 ml SI(Teich) 23.8 ml/m\S\2 SV(cubed) 50.8 ml SI(cubed) 24.3 ml/m\S\2 LVAd ap4 29.7 cm\S\2 LVLd ap4 8.3 cm EDV(MOD-sp4) 87.0 ml EDV(sp4-el) 90.6 ml LVAs ap4 15.0 cm\S\2 LVLs ap4 6.2 cm ESV(MOD-sp4) 31.2 ml ESV(sp4-el) 31.2 ml EF(MOD-sp4) 64.1 % EF(sp4-el) 65.6 % SV(MOD-sp4) 55.8 ml SI(MOD-sp4) 26.7 ml/m\S\2 SV(sp4-el) 59.4 ml SI(sp4-el) 28.4 ml/m\S\2
[2017-10-13] MEDS ORDERED: DexMEDEtomidine HCL IV 200 MCG in SODIUM CHLORIDE 0.9% 50ML 48 ML IV PRN (09:30)
--- NOTE | 2017-10-13 09:42 | Cardiology Consultation ---
Cardiology Consultation Date of Consultation: Oct 13, 2017 History of Present Illness Liborio Sargent is a 62 year old male seen in cardiology consultation per the request of Eleazar Chao PA-C of Critical Care Medicine for evaluation of apparent witnessed cardiac arrest. Per review of the patient's outpatient [facility] record, he has not followed up with [facility] cardiology in the past. His history is completely obtained from review of his record as the patient is sedated, receiving therapeutic hypothermic, and is on the ventilator. Per review of his chart, friends were present when he came to the emergency room early this morning. He has no apparent family it appears no POA. 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 Upon arrival , EMS treated him with inhaled bronchodilator therapy however he became progressively hypoxic with pulse oximetry in the 70s and subsequently stopped breathing and lost consciousness. He apparently was unresponsive for an interval of 3-4 minutes and received a single dose of epinephrine. He underwent endotracheal intubation. There are no strips available as electronic or paper chart to document arrhythmia, and I see no report of definite arrhythmia listed in his history at the time of the event. His subsequent brought to the emergency department, stabilized with sedation to allow better ventilation, and it was felt that since there is no definite appropriate neurologic response, he was placed on therapeutic hypothermia. The first available EKG performed in the emergency room on 10/13/17 at 3:53 AM reveals sinus rhythm with frequent premature supraventricular contractions mild nonspecific ST abnormality, with no definite ST segment elevation or depression of clinical significance. Repeat tracing was performed 801 this morning revealing normal sinus rhythm at 79 bpm with no significant ST changes, normal corrected QT interval of 474 ms. Telemetry performed since arrival to the emergency room has revealed no significant arrhythmia. History Past Medical History: Unobtainable due to current clinical status Past Surgical History: Unobtainable due to current medical status Social History: Unobtainable due to current medical status Family History: Unobtainable due to current medical status Review Of Systems A conference review of systems cannot be performed due to the patient's sedated state on the ventilator Allergies Coded Allergies: No Known Allergies (Unverified , 10/13/17) Medications Reported Home Medications Medications Dose Route/Sig Max Daily Dose Days Date Category Active Prescriptions or Reported Medications Unobtainable Rx Physical Exam Vital Signs (Last 8hrs): Last 8 Hrs Date Time Temp Pulse Resp B/P (MAP) Pulse Ox O2 Delivery O2 Flow Rate FiO2 10/13/17 09:00 37.4 90 18 130/65 (86) 97 Mechanical Ventilator 40 10/13/17 08:00 37.5 84 18 89/61 (70) 97 Mechanical Ventilator 40 10/13/17 08:00 40 10/13/17 07:10 40 10/13/17 07:00 37.5 94 26 122/89 (100) 97 Mechanical Ventilator 40 10/13/17 06:46 105 31 145/116 (23) 100 10/13/17 06:35 110 29 153/96 (55) 98 10/13/17 06:31 109 30 148/101 (55) 98 10/13/17 06:30 37.4 111 26 153/96 (115) 97 Mechanical Ventilator 50 10/13/17 06:27 37.4 104 26 134/94 100 Mechanical Ventilator 50 10/13/17 06:26 50 10/13/17 06:23 106 27 134/96 (55) 100 10/13/17 04:51 114/91 10/13/17 04:46 100 30 97 10/13/17 04:40 126/92 10/13/17 04:37 50 10/13/17 04:36 101 29 123/93 96 10/13/17 04:35 150/145 10/13/17 04:26 104 29 97 10/13/17 04:21 38.3 107/97 10/13/17 04:19 97 17 127/113 98 Mechanical Ventilator 49 10/13/17 04:19 102 19 97 10/13/17 04:11 112/82 10/13/17 04:02 96 Mechanical Ventilator 10/13/17 04:02 97 Mechanical Ventilator 49 10/13/17 04:01 141/116 10/13/17 03:59 100 10/13/17 03:53 127/113 General Appearance: Sedated, does not respond to voice or follow commands, current temperature 37C Head: Normocephalic Atraumatic. Eyes: PERRLA, EOMI, conjunctiva and sclera clear Neck: Supple. No carotid bruits noted. No JVD. No HJD. Respiratory: Breath sounds clear to auscultation bilaterally. No w/r/r. Cardiovascular: Reg rate and rhythm. S1 and S2 noted. No murmurs, rubs, gallops. PMI non displace. Abdomen: Normal bowel sounds, soft nontender. no abdominal bruits. Extremities: No edema, no clubbing or cyanosis. distal pulses 2/4 bilaterally. Data Last Resulted 10/13/17 03:10 Past 24 Hours Test 10/13/17 03:10 10/13/17 04:04 10/13/17 09:23 Range/Units Creatine Kinase MB 2.3 0.5-3.6 ng/ml Creatine Kinase MB Ratio 0.9 0-3.0 Prothromb Time International Ratio 1.0 0.9-1.1 Prothrombin Time 10.3 9.0-12.0 SECONDS Total Creatine Kinase 262 39-308 U/L Troponin I 0.025 0-0.045 ng/ml Imaging: Chest x-ray without any acute cardiac pulmonary abnormality EKG: As per history of present illness Telemetry reviewed: As per history of present illness CT of the brain no acute intracranial abnormality Assessment & Plan Technically limited transthoracic echocardiogram was performed at the bedside and reviewed: The patient's acoustic windows are limited due to the patient's supine state, and due to respiratory variation with ventilator activity, by ventricle systolic function is grossly normal without significant mitral valve pathology noted on limited images. The estimated right atrial pressure is normal based on his buttock is collapse of the inferior vena cava. The images are insufficient to estimate the right heart pulmonary artery systolic pressure. Significant aortic valve regurgitation was noted on limited views, the study was insufficient to assess for aortic stenosis. Impression: 62-year-old male Apparent witnessed respiratory arrest, did receive a dose of IV epinephrine, seemingly for concerns regarding the presence of pulsus electrical activity, since no ventricular arrhythmia was apparently observed per reports. Recommendations: Continue supportive care. I discussed the case with Dr. Uriarte, given lack of definite history of V. fib or ventricular tachycardia arrest, agrees reasonable to start weaning the hypothermic protocol light of the patient's sedation. Bedside EKG this morning revealed evidence of nonspecific encephalopathy. Agree with supportive care, he is currently sedated, and is receiving antibiotics for possible respiratory infection. It does not appear that his respiratory distress was due to previously diagnosed cardiomyopathy. Troponin 1 was only mildly elevated, and a repeat reading is due in about an hour and a half and this will be followed. Further considerations include proceeding with transesophageal echocardiogram for better delineation of his valvular myocardial infarction. I care team will discuss the potential clinical benefits and obtaining additional information by KATIE. John Rose DO
[2017-10-13 09:44] LABS: HEMATOCRIT 44.1 % (42-52); MEAN CELL VOLUME 95.5 fL (80-100); MEAN CORPUSCULAR HEMOGLOBIN 30.3 pg (25-34); MEAN CORPUSCULAR HGB CONC 31.7 g/dl (32-36); PLATELET COUNT 174 K/uL (130-400); RED BLOOD COUNT 4.62 M/uL (4.7-6.1); WHITE BLOOD COUNT 11.08 K/uL (4.8-10.8)
[2017-10-13 09:54] LABS: PARTIAL THROMBOPLASTIN RATIO 0.9; PROTHROMBIN TIME (PATIENT) 10.5 SECONDS (9.0-12.0)
[2017-10-13 10:01] LABS: INFLUENZA B PCR Neg for Influ B (NEG)
[2017-10-13 10:03] LABS: INFLUENZA A PCR POS for Influ A (NEG)
[2017-10-13] MEDS ORDERED: OSELTAMIVIR PHOSPHATE 75 MG CAP PO ONE (10:23)
[2017-10-13 10:25] LABS: BUN/CREATININE RATIO 18.3 (10-20); CALCIUM 7.2 mg/dl (8.5-10.1); CREATININE 1.15 mg/dl (0.60-1.40); MAGNESIUM 2.5 mg/dl (1.8-2.4); PHOSPHORUS 4.1 mg/dl (2.5-4.9); POTASSIUM 3.9 mmol/L (3.5-5.1)
--- NOTE | 2017-10-13 10:29 | Critical Care Progress Note ---
Critical Care Progress Note Date of Service Oct 13, 2017. Attending Dr. Uriarte Subjective Overnight Patient was on Hypothermia protocol. This morning, he became tachypneic and became restless. Propofol rate was increased to 30 MCG/KG/MIN. Fentanyl started Objective GENERAL: sedated, no distress EYE EXAM: PERRL and EOM's grossly intact OROPHARYNX: no exudate, no erythema, lips, buccal mucosa, and tongue normal, s/ p intubation NECK: supple, no adenopathy, LUNGS: Clear to auscultation. HEART: no murmurs, S1 normal and S2 normal ABDOMEN: abdomen soft, non-tender, normo-active bowel sounds, no masses, LOWER EXTREMITIES: No pitting edema. 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 CT head dated 10/13: Result: No acute intracranial abnormality Respiratory: COPD exacerbation COPD exacerbation: Started Solumedrol 40 mg q8hrs, Albuterol neb Adjusted Vent Settings to: type CPAP, rate 14, tidal volume 500, PEEP 5, FiO2 45% Chest X-ray: Reviewed: clear lungs, ET Tube 3.3cm from madelin Respiratory prophylaxis: Albuterol Cardiovascular: Cardiac Arrest s/p ROSC CV drips: Remains off vasoactive medications Rhythm: Sinus ECHO: Echo dated 10/13 :Technically Limited study due to poor acoustic windows with patient on vent Plan for KATIE today D/c'd therapeutic hypothermia protocols Fluids/Renal: IV Fluids: Fluids from intravenous medications Banda: Present GI/Nutrition: Feeding: Start Peptamen at 10 cc's hr increasing 10 cc q4 with goal of 40 cc/hr Prophylaxis: On Protinix drip Bowel movements:None Endocrine: Last 24 hour glucose: Ranging 111 to 143 F/U TSH Hematology: Hemoglobin 14, No Leukocytosis DVT prophylaxis: Lovenox Infectious Disease/Immunology: Tmax: 38.3 Current 36.8 Procalcitonin: negative Antimicrobials: Stopped Vanc and Zosyn due to positive flu swab making bacterial etiology less likely Influenza A swab positive Start Tamiflu x 5 days Cultures: Blood: pending Urine: pending MRSA: Negative Resident Physician Supervision Note: Dr. Moon was resident physician during care of patient. I separately evaluated patient and did history and exam. I discussed the case with the resident and generally agree with the findings and plan. Patient seen and examined, as critically ill secondary to hypoxic presumably hypercarbic respiratory failure. Patient did not meet criteria's for therapeutic hypothermia, there was no note of V. tach nor ventricular fibrillation. This is likely a respiratory event given the prehospital EMS history. He was found to have influenza, accordingly we have stopped antibiotics at this time. He was evaluated by cardiology as well as underwent a KATIE secondary to poor image quality obtained through the transthoracic echocardiogram. Patient has an adequate EF with no focal wall abnormalities per the interpretation by cardiology. At this time we are attempting to find surrogate decision makers. Harsh Del Rosario had contacted me her cell phone is [phone] reports that she is the patient's first cousin. She states the patient does not have any primary family members, no children, no parents. A Chet Morocho who is a close friend, not had contacted her. His contact phone is [phone]. Accordingly with the respiratory issues as well as influenza we have stopped the therapeutic hypothermia protocol. Patient's down time was less than 5 minutes. He has been started on Tamiflu empirically. I have personally spent 50 minutes of critical care time in the direct management of this patient. This is a life/limb threatening event. This includes time spent evaluating patient, direct bedside care, chart review, placing orders, interpretation of diagnostic studies, discussion with consultants, patient, and family members, as well as other required patient management activities. This time is exclusive of all separately billable procedures, and teaching time and separate from and in addition to any other critical care service time. Documented By: Warren Uriarte DO Consults & Procedures Consultants: Cardiology Procedures: KATIE Data Medications: Current Inpatient Medications Medications (Trade) Dose Ordered Sig/Brook Route Start Time Stop Time Status Last Admin Dose Admin Enoxaparin Sodium (Lovenox Inj) 40 mg Q24H SQ 10/13/17 08:00 11/12/17 07:59 10/13/17 08:04 40 MG Piperacillin Sod/ Tazobactam Sod 3.375 gm/Dextrose 115 ml @ 28.75 mls/ hr Q8H IV 10/13/17 12:00 10/15/17 11:59 Vancomycin HCl 1000 mg/Sodium Chloride 270 ml @ 125 mls/hr Q12 IV 10/13/17 09:00 10/15/17 08:59 UNV Parenteral Electrolyte Solution 1,000 ml @ 100 mls/hr Q10H IV 10/13/17 05:30 11/12/17 05:29 10/13/17 08:02 100 MLS/HR Artificial Tears (Lacri-Lube Oph Oint) 1 appln Q2H PRN OPB 10/13/17 05:30 11/12/17 05:29 Pantoprazole Sodium 40 mg/ Syringe 10 ml @ 5 mls/min DAILY@11 IV 10/13/17 11:00 11/12/17 10:59 10/13/17 08:03 5 MLS/MIN Fentanyl Citrate 250 ml @ 0 mls/hr Q0M IV 10/13/17 05:29 10/27/17 05:28 10/13/17 08:03 10 MLS/HR Meperidine HCl (Demerol Inj) 25 mg Q2H PRN IV 10/13/17 05:30 10/27/17 05:29 Ipratropium [place] (Atrovent Hfa Inhaler) 4 puffs Q4R INH 10/13/17 08:00 11/12/17 07:59 Methylprednisolone Sodium Succinate 40 mg/Syringe 0.64 ml @ 1.5 mls/min Q8H IV 10/13/17 08:00 11/12/17 07:59 10/13/17 08:03 1.5 MLS/MIN Vancomycin HCl (Consult) 1 ea UD PRN N/A 10/13/17 07:00 11/12/17 06:59 Piperacillin Sod/ Tazobactam Sod (Consult) 1 ea UD PRN N/A 10/13/17 07:00 11/12/17 06:59 Doxycycline Hyclate 100 mg/ Dextrose 110 ml @ 50 mls/hr BID IV 10/13/17 21:00 10/20/17 20:59 UNV Thiamine HCl 100 mg/Syringe 10 ml @ 2 mls/min QAM IV 10/13/17 09:15 11/12/17 09:14 UNV Dexmedetomidine HCl 200 mcg/ Sodium Chloride 50 ml @ 0 mls/hr Q0M PRN IV 10/13/17 09:30 10/17/17 09:29 10/13/17 09:56 4.1 MLS/HR Albuterol (Ventolin Hfa Inhaler) 4 puffs Q4R INH 10/13/17 12:00 11/12/17 11:59 Oseltamivir Phosphate (Tamiflu Cap) 75 mg BID PO 10/13/17 21:00 10/18/17 20:59 UNV Oseltamivir Phosphate (Tamiflu Cap) 75 mg 1023 ONCE PO 10/13/17 10:23 10/13/17 10:24 UNV I & O: 24-Hour Column 10/14/17 08:00 Intake Total 0 ml Output Total 160 ml Balance -160 ml Vital Signs: Date Time Temp Pulse Resp B/P (MAP) Pulse Ox O2 Delivery O2 Flow Rate FiO2 10/13/17 10:00 36.8 75 16 97/81 (86) 97 Mechanical Ventilator 40 10/13/17 09:00 37.4 90 18 130/65 (86) 97 Mechanical Ventilator 40 10/13/17 08:00 37.5 84 18 89/61 (70) 97 Mechanical Ventilator 40 10/13/17 08:00 40 10/13/17 07:10 40 10/13/17 07:00 37.5 94 26 122/89 (100) 97 Mechanical Ventilator 40 10/13/17 06:46 105 31 145/116 (23) 100 10/13/17 06:35 110 29 153/96 (55) 98 10/13/17 06:31 109 30 148/101 (55) 98 10/13/17 06:30 37.4 111 26 153/96 (115) 97 Mechanical Ventilator 50 10/13/17 06:27 37.4 104 26 134/94 100 Mechanical Ventilator 50 10/13/17 06:26 50 10/13/17 06:23 106 27 134/96 (55) 100 10/13/17 04:51 114/91 10/13/17 04:46 100 30 97 10/13/17 04:40 126/92 10/13/17 04:37 50 10/13/17 04:36 101 29 123/93 96 10/13/17 04:35 150/145 10/13/17 04:26 104 29 97 10/13/17 04:21 38.3 107/97 10/13/17 04:19 97 17 127/113 98 Mechanical Ventilator 49 10/13/17 04:19 102 19 97 10/13/17 04:11 112/82 10/13/17 04:02 96 Mechanical Ventilator 10/13/17 04:02 97 Mechanical Ventilator 49 10/13/17 04:01 141/116 10/13/17 03:59 100 10/13/17 03:53 127/113 Laboratory Results: Last 24 Hours Test 10/13/17 03:10 10/13/17 04:04 10/13/17 04:10 10/13/17 04:16 White Blood Count 8.09 K/uL Red Blood Count 5.16 M/uL Hemoglobin 16.3 g/dL Hematocrit 48.1 % Mean Corpuscular Volume 93.2 fL Mean Corpuscular Hemoglobin 31.6 pg Mean Corpuscular Hemoglobin Concent 33.9 g/dl Platelet Count 221 K/uL Mean Platelet Volume 10.4 fL Neutrophils (%) (Auto) 59.4 % Lymphocytes (%) (Auto) 19.5 % Monocytes (%) (Auto) 20.4 % Eosinophils (%) (Auto) 0.1 % Basophils (%) (Auto) 0.2 % Neutrophils # (Auto) 4.80 K/uL Lymphocytes # (Auto) 1.58 K/uL Monocytes # (Auto) 1.65 K/uL Eosinophils # (Auto) 0.01 K/uL Basophils # (Auto) 0.02 K/uL RDW Standard Deviation 47.1 fL RDW Coefficient of Variation 13.9 % Immature Granulocyte % (Auto) 0.4 % Immature Granulocyte # (Auto) 0.03 K/uL Prothrombin Time 10.3 SECONDS Prothromb Time International Ratio 1.0 Activated Partial Thromboplast Time 26.5 SECONDS Partial Thromboplastin Ratio 1.0 Sodium Level 139 mmol/L Potassium Level 3.5 mmol/L Chloride Level 101 mmol/L Carbon Dioxide Level 31 mmol/L Anion Gap 7.0 mmol/L Blood Urea Nitrogen 21 mg/dl Creatinine 1.04 mg/dl Est Creatinine Clear Calc Drug Dose 83.2 ml/min Estimated GFR () 88.8 Estimated GFR (Non- 76.6 BUN/Creatinine Ratio 19.9 Random Glucose 111 mg/dl Calcium Level 8.6 mg/dl Total Bilirubin 0.3 mg/dl Aspartate Amino Transf (AST/SGOT) 18 U/L Alanine Aminotransferase (ALT/SGPT) 27 U/L Alkaline Phosphatase 65 U/L Total Creatine Kinase 262 U/L Creatine Kinase MB 2.3 ng/ml Creatine Kinase MB Ratio 0.9 Troponin I 0.025 ng/ml Pro-B-Type Natriuretic Peptide 479 pg/ml Total Protein 8.4 gm/dl Albumin 4.3 gm/dl Globulin 4.1 gm/dl Albumin/Globulin Ratio 1.0 Bedside Blood Gas pH (LAB) 7.24 Bedside Blood Gas pCO2 (LAB) 62 mmHg Bedside Blood Gas pO2 (LAB) 305 mmHg Bedside Blood Gas HCO3 (LAB) 26 meq/L Bedside Blood Gas Total CO2 28 mEq/l Bedside Blood Gas Base Excess (LAB) -1.0 meq/L Bedside Blood Gas O2 Saturation 100.0 % Procalcitonin < 0.05 ng/ml Test 10/13/17 04:21 10/13/17 04:25 10/13/17 05:24 10/13/17 06:43 Urine Color YELLOW Urine Appearance CLEAR Urine pH 5.5 Urine Specific [place] 1.021 Urine Protein 2+ Urine Glucose (UA) 3+ Urine Ketones NEG Urine Occult Blood 2+ Urine Nitrite NEG Urine Bilirubin NEG Urine Urobilinogen NEG Urine Leukocyte Esterase NEG Urine WBC (Auto) 10-30 /hpf Urine RBC (Auto) 5-10 /hpf Urine Hyaline Casts (Auto) 5-10 /lpf Urine Epithelial Cells (Auto) >30 /lpf Urine Bacteria (Auto) 1+ Urine Renal Epithelial Cells /lpf Urine Pathogenic Casts 1-5 GRANULAR CASTS /lpf Urine Yeast (Auto) BUDDING Bedside Lactic Acid Venous 3.69 mmol/L Lactic Acid Level 3.0 mmol/L Bedside Glucose 185 mg/dl Test 10/13/17 08:15 10/13/17 09:23 10/13/17 09:24 Influenza Type A (RT-PCR) POS for Influ A Influenza Type B (RT-PCR) Neg for Influ B White Blood Count 11.08 K/uL Red Blood Count 4.62 M/uL Hemoglobin 14.0 g/dL Hematocrit 44.1 % Mean Corpuscular Volume 95.5 fL Mean Corpuscular Hemoglobin 30.3 pg Mean Corpuscular Hemoglobin Concent 31.7 g/dl RDW Standard Deviation 50.3 fL RDW Coefficient of Variation 14.4 % Platelet Count 174 K/uL Mean Platelet Volume 10.0 fL Prothrombin Time 10.5 SECONDS Prothromb Time International Ratio 1.0 Activated Partial Thromboplast Time 24.2 SECONDS Partial Thromboplastin Ratio 0.9 Lactic Acid Level 3.7 mmol/L Sodium Level 141 mmol/L Potassium Level 3.9 mmol/L Chloride Level 104 mmol/L Carbon Dioxide Level 28 mmol/L Anion Gap 9.0 mmol/L Blood Urea Nitrogen 21 mg/dl Creatinine 1.15 mg/dl Est Creatinine Clear Calc Drug Dose 73.1 ml/min Estimated GFR () 78.6 Estimated GFR (Non- 67.8 BUN/Creatinine Ratio 18.3 Random Glucose 143 mg/dl Calcium Level 7.2 mg/dl Phosphorus Level 4.1 mg/dl Magnesium Level 2.5 mg/dl Resident Tracking Resident Involvement: Resident Care Provided Care Provided: Adult [facility] Medicine
--- NOTE | 2017-10-13 10:30 | Progress Note ---
Medicine Progress Note Date & Time of Visit: Oct 13, 2017 at 10:24. Subjective patient seen on [facility] Vent- CPAP, Sedated not in distress no other signs per executive staff assistant (+) Flu no family members, tried to call friend Bill, no response yet Objective Last 8 Hrs Date Time Temp Pulse Resp B/P (MAP) Pulse Ox O2 Delivery O2 Flow Rate FiO2 10/13/17 10:00 36.8 75 16 97/81 (86) 97 Mechanical Ventilator 40 10/13/17 09:00 37.4 90 18 130/65 (86) 97 Mechanical Ventilator 40 10/13/17 08:00 37.5 84 18 89/61 (70) 97 Mechanical Ventilator 40 10/13/17 08:00 40 10/13/17 07:10 40 10/13/17 07:00 37.5 94 26 122/89 (100) 97 Mechanical Ventilator 40 10/13/17 06:46 105 31 145/116 (23) 100 10/13/17 06:35 110 29 153/96 (55) 98 10/13/17 06:31 109 30 148/101 (55) 98 10/13/17 06:30 37.4 111 26 153/96 (115) 97 Mechanical Ventilator 50 10/13/17 06:27 37.4 104 26 134/94 100 Mechanical Ventilator 50 10/13/17 06:26 50 10/13/17 06:23 106 27 134/96 (55) 100 10/13/17 04:51 114/91 10/13/17 04:46 100 30 97 10/13/17 04:40 126/92 10/13/17 04:37 50 10/13/17 04:36 101 29 123/93 96 10/13/17 04:35 150/145 10/13/17 04:26 104 29 97 10/13/17 04:21 38.3 107/97 10/13/17 04:19 97 17 127/113 98 Mechanical Ventilator 49 10/13/17 04:19 102 19 97 10/13/17 04:11 112/82 10/13/17 04:02 96 Mechanical Ventilator 10/13/17 04:02 97 Mechanical Ventilator 49 10/13/17 04:01 141/116 10/13/17 03:59 100 10/13/17 03:53 127/113 Physical Exam: General- sedated, not in distress Head- atraumatic Eyes- PERRL, anicteric ENT- ET tube in place Neck- supple, no JVD, no adenopathy Lungs- clear breath sounds anteriorly Heart- regular rhythm; no murmur, normal rate Abdomen- normal bowel sounds, soft, nontender Extremities- no pretibial edema, no calf tenderness; peripheral pulses intact Neuro- sedated Skin- warm & dry Laboratory Results: Last 24 Hours Test 10/13/17 03:10 10/13/17 04:04 10/13/17 04:10 10/13/17 04:16 White Blood Count 8.09 K/uL Red Blood Count 5.16 M/uL Hemoglobin 16.3 g/dL Hematocrit 48.1 % Mean Corpuscular Volume 93.2 fL Mean Corpuscular Hemoglobin 31.6 pg Mean Corpuscular Hemoglobin Concent 33.9 g/dl Platelet Count 221 K/uL Mean Platelet Volume 10.4 fL Neutrophils (%) (Auto) 59.4 % Lymphocytes (%) (Auto) 19.5 % Monocytes (%) (Auto) 20.4 % Eosinophils (%) (Auto) 0.1 % Basophils (%) (Auto) 0.2 % Neutrophils # (Auto) 4.80 K/uL Lymphocytes # (Auto) 1.58 K/uL Monocytes # (Auto) 1.65 K/uL Eosinophils # (Auto) 0.01 K/uL Basophils # (Auto) 0.02 K/uL RDW Standard Deviation 47.1 fL RDW Coefficient of Variation 13.9 % Immature Granulocyte % (Auto) 0.4 % Immature Granulocyte # (Auto) 0.03 K/uL Prothrombin Time 10.3 SECONDS Prothromb Time International Ratio 1.0 Activated Partial Thromboplast Time 26.5 SECONDS Partial Thromboplastin Ratio 1.0 Sodium Level 139 mmol/L Potassium Level 3.5 mmol/L Chloride Level 101 mmol/L Carbon Dioxide Level 31 mmol/L Anion Gap 7.0 mmol/L Blood Urea Nitrogen 21 mg/dl Creatinine 1.04 mg/dl Est Creatinine Clear Calc Drug Dose 83.2 ml/min Estimated GFR () 88.8 Estimated GFR (Non- 76.6 BUN/Creatinine Ratio 19.9 Random Glucose 111 mg/dl Calcium Level 8.6 mg/dl Total Bilirubin 0.3 mg/dl Aspartate Amino Transf (AST/SGOT) 18 U/L Alanine Aminotransferase (ALT/SGPT) 27 U/L Alkaline Phosphatase 65 U/L Total Creatine Kinase 262 U/L Creatine Kinase MB 2.3 ng/ml Creatine Kinase MB Ratio 0.9 Troponin I 0.025 ng/ml Pro-B-Type Natriuretic Peptide 479 pg/ml Total Protein 8.4 gm/dl Albumin 4.3 gm/dl Globulin 4.1 gm/dl Albumin/Globulin Ratio 1.0 Bedside Blood Gas pH (LAB) 7.24 Bedside Blood Gas pCO2 (LAB) 62 mmHg Bedside Blood Gas pO2 (LAB) 305 mmHg Bedside Blood Gas HCO3 (LAB) 26 meq/L Bedside Blood Gas Total CO2 28 mEq/l Bedside Blood Gas Base Excess (LAB) -1.0 meq/L Bedside Blood Gas O2 Saturation 100.0 % Procalcitonin < 0.05 ng/ml Test 10/13/17 04:21 10/13/17 04:25 10/13/17 05:24 10/13/17 06:43 Urine Color YELLOW Urine Appearance CLEAR Urine pH 5.5 Urine Specific [place] 1.021 Urine Protein 2+ Urine Glucose (UA) 3+ Urine Ketones NEG Urine Occult Blood 2+ Urine Nitrite NEG Urine Bilirubin NEG Urine Urobilinogen NEG Urine Leukocyte Esterase NEG Urine WBC (Auto) 10-30 /hpf Urine RBC (Auto) 5-10 /hpf Urine Hyaline Casts (Auto) 5-10 /lpf Urine Epithelial Cells (Auto) >30 /lpf Urine Bacteria (Auto) 1+ Urine Renal Epithelial Cells /lpf Urine Pathogenic Casts 1-5 GRANULAR CASTS /lpf Urine Yeast (Auto) BUDDING Bedside Lactic Acid Venous 3.69 mmol/L Lactic Acid Level 3.0 mmol/L Bedside Glucose 185 mg/dl Test 10/13/17 08:15 10/13/17 09:23 10/13/17 09:24 Influenza Type A (RT-PCR) POS for Influ A Influenza Type B (RT-PCR) Neg for Influ B White Blood Count 11.08 K/uL Red Blood Count 4.62 M/uL Hemoglobin 14.0 g/dL Hematocrit 44.1 % Mean Corpuscular Volume 95.5 fL Mean Corpuscular Hemoglobin 30.3 pg Mean Corpuscular Hemoglobin Concent 31.7 g/dl RDW Standard Deviation 50.3 fL RDW Coefficient of Variation 14.4 % Platelet Count 174 K/uL Mean Platelet Volume 10.0 fL Prothrombin Time 10.5 SECONDS Prothromb Time International Ratio 1.0 Activated Partial Thromboplast Time 24.2 SECONDS Partial Thromboplastin Ratio 0.9 Lactic Acid Level 3.7 mmol/L Date/Time Source Procedure Growth Status 10/13/17 04:20 Blood Blood Culture Pending Received 10/13/17 04:16 Blood Blood Culture Pending Received 10/13/17 06:24 Nasal MRSA DNA Surveillance Screen - Final Specimen Negative for MRSA by DNA Probe Complete 10/13/17 04:21 Urine,Catheterized Urine Culture Pending Received Assessment & Plan Patient is a 62 year old male presented secondary to respiratory distress and subsequently cardiopulmonary arrest Cardiopulmonary Arrest likely from Acute Hypoxic-Hypercapneic Respiratory Failure Possible Asthma/COPD Exacerbation from Influenza - tried to call friend Linsey to obtain more information re: medical history, PCP , medications no answer, will try again - CXR: unrevealing CT head: microvascular changes, no acute process - (+) Influenza A PCR - Tamiflu ordered on empiric Vanco + Zosyn Solumedrol Nebs - off hypothermia protocol - further management including Mech Vent per ICU Elevated Lactic Acid - on IV fluids - monitor level Medical Records - needs to obtain medical records re: past medical history and medications tried to call friend Linsey to obtain more information re: medical history, PCP , medications no answer, will try again DVT ppx Lovenox Disposition apparently patient lives in a trailer by himself will need PT/OT Case Management Current Inpatient Medications: Current Inpatient Medications Medications (Trade) Dose Ordered Sig/Brook Route Start Time Stop Time Status Last Admin Dose Admin Enoxaparin Sodium (Lovenox Inj) 40 mg Q24H SQ 10/13/17 08:00 11/12/17 07:59 10/13/17 08:04 40 MG Piperacillin Sod/ Tazobactam Sod 3.375 gm/Dextrose 115 ml @ 28.75 mls/ hr Q8H IV 10/13/17 12:00 10/15/17 11:59 Vancomycin HCl 1000 mg/Sodium Chloride 270 ml @ 125 mls/hr Q12 IV 10/13/17 09:00 10/15/17 08:59 UNV Parenteral Electrolyte Solution 1,000 ml @ 100 mls/hr Q10H IV 10/13/17 05:30 11/12/17 05:29 10/13/17 08:02 100 MLS/HR Artificial Tears (Lacri-Lube Oph Oint) 1 appln Q2H PRN OPB 10/13/17 05:30 11/12/17 05:29 Pantoprazole Sodium 40 mg/ Syringe 10 ml @ 5 mls/min DAILY@11 IV 10/13/17 11:00 11/12/17 10:59 10/13/17 08:03 5 MLS/MIN Fentanyl Citrate 250 ml @ 0 mls/hr Q0M IV 10/13/17 05:29 10/27/17 05:28 10/13/17 08:03 10 MLS/HR Meperidine HCl (Demerol Inj) 25 mg Q2H PRN IV 10/13/17 05:30 10/27/17 05:29 Ipratropium [place] (Atrovent Hfa Inhaler) 4 puffs Q4R INH 10/13/17 08:00 11/12/17 07:59 Methylprednisolone Sodium Succinate 40 mg/Syringe 0.64 ml @ 1.5 mls/min Q8H IV 10/13/17 08:00 11/12/17 07:59 10/13/17 08:03 1.5 MLS/MIN Vancomycin HCl (Consult) 1 ea UD PRN N/A 10/13/17 07:00 11/12/17 06:59 Piperacillin Sod/ Tazobactam Sod (Consult) 1 ea UD PRN N/A 10/13/17 07:00 11/12/17 06:59 Doxycycline Hyclate 100 mg/ Dextrose 110 ml @ 50 mls/hr BID IV 10/13/17 21:00 10/20/17 20:59 UNV Thiamine HCl 100 mg/Syringe 10 ml @ 2 mls/min QAM IV 10/13/17 09:15 11/12/17 09:14 UNV Dexmedetomidine HCl 200 mcg/ Sodium Chloride 50 ml @ 0 mls/hr Q0M PRN IV 10/13/17 09:30 10/17/17 09:29 10/13/17 09:56 4.1 MLS/HR Albuterol (Ventolin Hfa Inhaler) 4 puffs Q4R INH 10/13/17 12:00 11/12/17 11:59
[2017-10-13 10:35] LABS: THYROID STIMULATING HORMONE 0.915 uIu/ml (0.300-4.500)
[2017-10-13] MEDS: THIAMINE HCL INJ 100 MG in SYRINGE 9 ML IV SCH (10:51)
[2017-10-13] MEDS: ALBUTEROL HFA 8 GM INHALER INH SCH ×3 (11:19→20:00)
[2017-10-13] MEDS: OSELTAMIVIR PHOSPHATE SUSP 75 MG/12.5 ML UDP NG SCH ×2 (11:21→20:55)
[2017-10-13] MEDS ORDERED: PIPERACILL/TAZOBAC IV 3.375 GM in DEXTROSE 5% 100ML 100 ML IV SCH (12:00)
[2017-10-13 12:28] LABS: CKMB/CK RATIO 1.6 (0-3.0)
[2017-10-13] MEDS ORDERED: NURSING VERBAL MED ORDER ONE (12:45)
[2017-10-13] MEDS ORDERED: ASPIRIN 81 MG ECTAB PO SCH (13:00)
[2017-10-13] MEDS ORDERED: PEPTAMEN 1.5 CAL 1000ML BAG PO SCH (13:15)
[2017-10-13] MEDS: ASPIRIN 81 MG CHEW PO SCH (14:11)
[2017-10-13 16:44] LABS: COMPLETE YES; EOS % 0.1 %; HEMATOCRIT 42.9 % (42-52); IG% 0.3 %; LYMPH % 4.1 %; LYMPH ABS # 0.45 K/uL (1.2-3.4); MEAN CELL VOLUME 95.8 fL (80-100); MEAN CORPUSCULAR HEMOGLOBIN 30.1 pg (25-34); MEAN CORPUSCULAR HGB CONC 31.5 g/dl (32-36); MEAN PLATELET VOLUME 9.9 fL (7.4-10.4); MONO % 10.5 %; PLATELET COUNT 180 K/uL (130-400); RED BLOOD COUNT 4.48 M/uL (4.7-6.1); WHITE BLOOD COUNT 10.89 K/uL (4.8-10.8)
[2017-10-13 17:24] LABS: PARTIAL THROMBOPLASTIN RATIO 1.1; PROTHROMBIN TIME (PATIENT) 10.5 SECONDS (9.0-12.0)
[2017-10-13 17:25] LABS: BUN/CREATININE RATIO 17.6 (10-20); CALCIUM 7.5 mg/dl (8.5-10.1); CREATININE 1.1 mg/dl (0.60-1.40); MAGNESIUM 2.4 mg/dl (1.8-2.4); POTASSIUM 4.5 mmol/L (3.5-5.1)
[2017-10-13] MEDS: PEPTAMEN INTENSE VHP 1000ML BAG OG PRN (17:55)
[2017-10-13 18:36] LABS: ISTAT ALLEN TEST Pass; ISTAT ARTERIAL BLOOD GAS HCO3 28 meq/L (19-24); ISTAT ARTERIAL BLOOD GAS PCO2 64 mmHg (35-46); ISTAT ARTERIAL BLOOD GAS PO2 52 mmHg (80-95); ISTAT ARTERIAL BLOOD GAS pH 7.25 (7.35-7.45); ISTAT CARBON DIOXIDE 30 mEq/l (24-31); ISTAT DELIVERY SYSTEM Ventilator; ISTAT FIO2 30 %; ISTAT PEEP 5; ISTAT RATE 12; ISTAT SITE R Radial; VE 7.7; Vt 500
[2017-10-13 20:31] LABS: CKMB/CK RATIO 1.8 (0-3.0)
[2017-10-13] MEDS ORDERED: DOXYCYCLINE IV 100 MG in DEXTROSE 5% 100ML 100 ML IV SCH (21:00)
[2017-10-13] MEDS ORDERED: OSELTAMIVIR PHOSPHATE 75 MG CAP PO SCH (21:00)
[2017-10-14] VITALS (15 sets, daily range): BP systolic 96–203; BP diastolic 61–122; PULSE 63–108; TEMP 36.1–37.9; O2SAT 93–100
[2017-10-14] MEDS: PROPOFOL IV EMULSION 10 MG/ML 100 ML VIAL IV PRN ×3 (03:36→21:08)
[2017-10-14] MEDS: METHYLPREDNISOLONE IV 40 MG in SYRINGE 0 ML IV SCH ×3 (03:38→22:20)
[2017-10-14] MEDS: NORMOSOL R 1,000 ML IV SCH (03:39)
[2017-10-14 04:08] LABS: COMPLETE YES; HEMATOCRIT 43.4 % (42-52); IG% 0.4 %; LYMPH % 9.7 %; LYMPH ABS # 1.07 K/uL (1.2-3.4); MEAN CELL VOLUME 95.8 fL (80-100); MEAN CORPUSCULAR HEMOGLOBIN 30.5 pg (25-34); MEAN CORPUSCULAR HGB CONC 31.8 g/dl (32-36); MEAN PLATELET VOLUME 10.2 fL (7.4-10.4); MONO % 10.5 %; NEUT % 79.4 %; PLATELET COUNT 183 K/uL (130-400); RED BLOOD COUNT 4.53 M/uL (4.7-6.1); WHITE BLOOD COUNT 10.98 K/uL (4.8-10.8)
[2017-10-14 04:20] LABS: GASTRIC OCCULT BLOOD POS (NEG); GASTRIC OCCULT BLOOD PH 4
[2017-10-14 04:26] LABS: BUN/CREATININE RATIO 23.7 (10-20); CALCIUM 7.6 mg/dl (8.5-10.1); CREATININE 0.91 mg/dl (0.60-1.40); MAGNESIUM 2.7 mg/dl (1.8-2.4); PARTIAL THROMBOPLASTIN RATIO 1.3; PHOSPHORUS 4.1 mg/dl (2.5-4.9); POTASSIUM 4.8 mmol/L (3.5-5.1); PROTHROMBIN TIME (PATIENT) 10.4 SECONDS (9.0-12.0)
[2017-10-14] MEDS: ALBUTEROL HFA 8 GM INHALER INH SCH ×5 (07:17→23:35)
[2017-10-14] MEDS: IPRATROPIUM BROMIDE HFA INHALER INH SCH ×5 (07:17→23:35)
[2017-10-14] MEDS: ENOXAPARIN 40 MG/0.4 ML SYR SQ SCH (07:25)
[2017-10-14] MEDS: ASPIRIN 81 MG CHEW PO SCH (07:25)
[2017-10-14] MEDS: OSELTAMIVIR PHOSPHATE SUSP 75 MG/12.5 ML UDP NG SCH ×2 (07:25→22:20)
--- NOTE | 2017-10-14 07:28 | DIAGNOSTIC IMAGING REPORT ---
CHEST ONE VIEW PORTABLE CLINICAL HISTORY: Respiratory failure COMPARISON STUDY: 10/13/2017 FINDINGS: The cardiac and mediastinal contours remain stable. There is an endotracheal tube 5 cm above the madelin. There is no focal pulmonary consolidation. There is no failure. There are no pleural effusions.[ There is a nasogastric tube which passes into the stomach. IMPRESSION: Endotracheal tube 5 cm above the madelin. No focal pulmonary consolidation. Electronically signed by: Sander Ricketts M.D. 10/14/2017 7:26 AM Dictated Date/Time: 10/14/2017 7:25 AM
[2017-10-14] MEDS: THIAMINE HCL INJ 100 MG in SYRINGE 9 ML IV SCH (08:14)
[2017-10-14 09:07] LABS: ISTAT ALLEN TEST Pass; ISTAT ARTERIAL BLOOD GAS HCO3 31 meq/L (19-24); ISTAT ARTERIAL BLOOD GAS PCO2 61 mmHg (35-46); ISTAT ARTERIAL BLOOD GAS PO2 81 mmHg (80-95); ISTAT ARTERIAL BLOOD GAS pH 7.31 (7.35-7.45); ISTAT CARBON DIOXIDE 33 mEq/l (24-31); ISTAT DELIVERY SYSTEM Ventilator; ISTAT FIO2 40 %; ISTAT PEEP 5; ISTAT RATE 14; ISTAT SITE R Radial; VE 7.5; Vt 500
[2017-10-14] MEDS: FENTANYL 1250MCG/250ML NSS 250 ML IV SCH (10:05)
--- NOTE | 2017-10-14 10:33 | Cardiology Follow-Up ---
Subjective General Date of Service: Oct 14, 2017. Chief Complaint: follow up respiratory arrest Pt evaluation today including: physical exam, chart review, lab review, review of studies History of Present Illness The patient is a 62 year old male seen in follow up. Since I had seen the patient yesterday morning, testing has revealed the presence of influenza A infection. He is now on droplet precautions. The therapeutic hypothermia protocol was discontinued as there is no clear evidence of ventricular arrhythmias to account for his loss of responsiveness, and in retrospect this appears to be an event due to hypoxemic respiratory failure. No arrhythmias were noted on telemetry overnight last night. His blood pressure remained stable. He remains on sedation. When sedation is reduced, he does fight the ventilator, but has not had otherwise meaningful response. Allergies Coded Allergies: No Known Allergies (Unverified , 10/13/17) Social History Smoking Status: Unknown if Ever Smoked Hx Substance Use - Type And Am: No (Unable to obtain) Problem List Medical Problems: (1) Acute respiratory failure Status: Acute (2) Cardiac arrest Status: Acute (3) COPD with exacerbation Status: Acute Physical Exam Vital Signs Last Vital Signs Documentation Date Time Temp Pulse Resp B/P (MAP) Pulse Ox O2 Delivery O2 Flow Rate FiO2 10/14/17 08:00 Mechanical Ventilator 10/14/17 08:00 36.1 63 14 96/61 73 93 40 Physical Exam Constitutional: Level of Distress: acutely ill Neck: supple Lungs: Auscultation: CTA except as noted, no wheezing, no rales/crackles Cardiovascular: Heart Auscultation: RRR, no murmurs, no rubs Abdomen: Inspection & Palpation: soft, non-distended Extremities: no edema Neurologic: Gait & Station: pertinent finding (patient is sedated during my evaluation with no response to voice or tactile stimuli) Assessment and Plan Assessment and Plan Impression: 62-year-old male 1. Respiratory failure with resultant respiratory arrest setting of influenza a infection. 2. Mild troponin elevation, peaked at 1.2 ng/ ml likely due to profound transient hypoxia. No evidence of acute coronary syndrome by EKG. Discussion/recommendations: The patient's transthoracic echocardiogram was somewhat technically limited but revealed no evidence of pericardial effusion and grossly normal biventricular function. The patient undergone a bedside limited transesophageal echocardiogram initiated by Dr Uriarte on 10/13/17 performed on the critical care department' s mobile equipment. This was performed due to the patient's technically limited echo windows. Per my bedside interpretation, normal biventricular systolic function was noted. No significant valvular regurgitation was noted with aortic valve, tricuspid valve, mitral valve. The aortic valve was tricuspid in morphology with normal excursion and no . The ascending aorta diameter was grossly normal in diameter. At present, recommend continued supportive care. The concern of course is the patient has suffered an anoxic brain injury. Continue to wean sedation and ventilator support as tolerated and as is being performed by the critical care team. I do not believe further cardiac workup is necessary at this time, as this does not appear to have been due to a court coronary syndrome or arrhythmia event. John Rose, Laboratory Results Last 24 Hours Test 10/13/17 11:40 10/13/17 16:24 10/13/17 17:01 10/13/17 18:18 Total Creatine Kinase 569 U/L Creatine Kinase MB 9.3 ng/ml Creatine Kinase MB Ratio 1.6 Troponin I 1.200 ng/ml White Blood Count 10.89 K/uL Red Blood Count 4.48 M/uL Hemoglobin 13.5 g/dL Hematocrit 42.9 % Mean Corpuscular Volume 95.8 fL Mean Corpuscular Hemoglobin 30.1 pg Mean Corpuscular Hemoglobin Concent 31.5 g/dl Platelet Count 180 K/uL Mean Platelet Volume 9.9 fL Neutrophils (%) (Auto) 85.0 % Lymphocytes (%) (Auto) 4.1 % Monocytes (%) (Auto) 10.5 % Eosinophils (%) (Auto) 0.1 % Basophils (%) (Auto) 0.0 % Neutrophils # (Auto) 9.26 K/uL Lymphocytes # (Auto) 0.45 K/uL Monocytes # (Auto) 1.14 K/uL Eosinophils # (Auto) 0.01 K/uL Basophils # (Auto) 0.00 K/uL RDW Standard Deviation 50.4 fL RDW Coefficient of Variation 14.3 % Immature Granulocyte % (Auto) 0.3 % Immature Granulocyte # (Auto) 0.03 K/uL Sodium Level 138 mmol/L Potassium Level 4.5 mmol/L Chloride Level 104 mmol/L Carbon Dioxide Level 25 mmol/L Anion Gap 10.0 mmol/L Blood Urea Nitrogen 19 mg/dl Creatinine 1.10 mg/dl Est Creatinine Clear Calc Drug Dose 76.4 ml/min Estimated GFR () 82.9 Estimated GFR (Non- 71.6 BUN/Creatinine Ratio 17.6 Random Glucose 141 mg/dl Calcium Level 7.5 mg/dl Phosphorus Level 4.0 mg/dl Magnesium Level 2.4 mg/dl Chemistry Specimen Hemolysis Prothrombin Time 10.5 SECONDS Prothromb Time International Ratio 1.0 Activated Partial Thromboplast Time 28.4 SECONDS Partial Thromboplastin Ratio 1.1 Blood Gas Sample Site R Radial Bedside Blood Gas pH (LAB) 7.25 Bedside Blood Gas pCO2 (LAB) 64 mmHg Bedside Blood Gas pO2 (LAB) 52 mmHg Bedside Blood Gas HCO3 (LAB) 28 meq/L Bedside Blood Gas Total CO2 30 mEq/l Bedside Blood Gas Base Excess (LAB) 1.0 meq/L Bedside Blood Gas O2 Saturation 79.0 % Maximino Test Pass Oxygen Delivery Device Ventilator Bedside Oxygen Rate (breaths/min) 12 Blood Gas Minute Ventilation 7.7 Bedside FiO2 30 % Blood Gas Tidal Volume 500 Blood Gas PEEP 5 Test 10/13/17 19:29 10/14/17 00:00 10/14/17 02:15 10/14/17 04:00 Total Creatine Kinase 602 U/L Creatine Kinase MB 10.8 ng/ml Creatine Kinase MB Ratio 1.8 Troponin I 0.586 ng/ml Gastric Fluid pH 4 Gastric Fluid Occult Blood POS Bedside Glucose 116 mg/dl White Blood Count 10.98 K/uL Red Blood Count 4.53 M/uL Hemoglobin 13.8 g/dL Hematocrit 43.4 % Mean Corpuscular Volume 95.8 fL Mean Corpuscular Hemoglobin 30.5 pg Mean Corpuscular Hemoglobin Concent 31.8 g/dl Platelet Count 183 K/uL Mean Platelet Volume 10.2 fL Neutrophils (%) (Auto) 79.4 % Lymphocytes (%) (Auto) 9.7 % Monocytes (%) (Auto) 10.5 % Eosinophils (%) (Auto) 0.0 % Basophils (%) (Auto) 0.0 % Neutrophils # (Auto) 8.72 K/uL Lymphocytes # (Auto) 1.07 K/uL Monocytes # (Auto) 1.15 K/uL Eosinophils # (Auto) 0.00 K/uL Basophils # (Auto) 0.00 K/uL RDW Standard Deviation 49.7 fL RDW Coefficient of Variation 14.1 % Immature Granulocyte % (Auto) 0.4 % Immature Granulocyte # (Auto) 0.04 K/uL Prothrombin Time 10.4 SECONDS Prothromb Time International Ratio 1.0 Activated Partial Thromboplast Time 32.8 SECONDS Partial Thromboplastin Ratio 1.3 Sodium Level 139 mmol/L Potassium Level 4.8 mmol/L Chloride Level 102 mmol/L Carbon Dioxide Level 34 mmol/L Anion Gap 3.0 mmol/L Blood Urea Nitrogen 22 mg/dl Creatinine 0.91 mg/dl Est Creatinine Clear Calc Drug Dose 92.4 ml/min Estimated GFR () 104.3 Estimated GFR (Non- 90.0 BUN/Creatinine Ratio 23.7 Random Glucose 127 mg/dl Lactic Acid Level 2.2 mmol/L Calcium Level 7.6 mg/dl Phosphorus Level 4.1 mg/dl Magnesium Level 2.7 mg/dl Test 10/14/17 05:46 10/14/17 08:52 Bedside Glucose 115 mg/dl Blood Gas Sample Site R Radial Bedside Blood Gas pH (LAB) 7.31 Bedside Blood Gas pCO2 (LAB) 61 mmHg Bedside Blood Gas pO2 (LAB) 81 mmHg Bedside Blood Gas HCO3 (LAB) 31 meq/L Bedside Blood Gas Total CO2 33 mEq/l Bedside Blood Gas Base Excess (LAB) 5.0 meq/L Bedside Blood Gas O2 Saturation 94.0 % Maximino Test Pass Oxygen Delivery Device Ventilator Bedside Oxygen Rate (breaths/min) 14 Blood Gas Minute Ventilation 7.5 Bedside FiO2 40 % Blood Gas Tidal Volume 500 Blood Gas PEEP 5
[2017-10-14] MEDS ORDERED: SENNA 8.6 MG TAB PO PRN (10:45)
[2017-10-14] MEDS: PANTOprazole INJ 40 MG in SYRINGE 0 ML IV SCH (11:14)
[2017-10-14 12:24] LABS: COMPLETE YES; HEMATOCRIT 40.8 % (42-52); IG% 0.2 %; LYMPH % 6.6 %; LYMPH ABS # 0.75 K/uL (1.2-3.4); MEAN CELL VOLUME 95.8 fL (80-100); MEAN CORPUSCULAR HEMOGLOBIN 30.8 pg (25-34); MEAN CORPUSCULAR HGB CONC 32.1 g/dl (32-36); MONO % 7.5 %; NEUT % 85.7 %; PLATELET COUNT 177 K/uL (130-400); RED BLOOD COUNT 4.26 M/uL (4.7-6.1); WHITE BLOOD COUNT 11.36 K/uL (4.8-10.8)
--- NOTE | 2017-10-14 12:55 | Critical Care Progress Note ---
Critical Care Progress Note Date of Service Oct 14, 2017. Attending Dr. Urairte Subjective Overnight, weaning trial was attempted, but patient did not tolerate. Patient was put back on propofol and fentanyl. Objective GENERAL: sedated, no distress EYE EXAM: PERRL and EOM's grossly intact OROPHARYNX: no exudate, no erythema, lips, buccal mucosa, and tongue normal, s/ p intubation NECK: supple, no adenopathy, LUNGS: Clear to auscultation. HEART: no murmurs, S1 normal and S2 normal ABDOMEN: abdomen soft, non-tender, normo-active bowel sounds, no masses, LOWER EXTREMITIES: No pitting edema. 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 CT head dated 10/13: Result: No acute intracranial abnormality Respiratory: COPD exacerbation in setting of Influenza COPD exacerbation: Dec Solumedrol to 40 mg BID, Albuterol neb Adjusted Vent Settings to: type CPAP/PSV, rate 17, PEEP 5, FiO2 40% Chest X-ray(10/14/17): Reviewed: clear lungs, ET Tube 5 cm from madelin Respiratory prophylaxis: Albuterol Cardiovascular: Cardiac Arrest s/p ROSC CV drips: Remains off vasoactive medications Rhythm: Sinus ECHO: Echo dated 10/13 :Technically Limited study due to poor acoustic windows with patient on vent Bedside KATIE (10/13/17): no evidence of pericardial effusion and grossly normal biventricular function,normal biventricular systolic function, No significant valvular regurgitation Fluids/Renal: IV Fluids: Fluids from intravenous medications D/C Fluids Banda: Present GI/Nutrition: Feeding: Peptamen at goal of 40 cc/hr Prophylaxis: On Protonix drip Bowel movements:None, Start Senokot, Dulcolax Endocrine: Last 24 hour glucose: Ranging 111 to 143 F/U TSH Hematology: Hemoglobin 14, No Leukocytosis DVT prophylaxis: Lovenox Infectious Disease/Immunology: Influenza Tmax: 38.3 Current 36.8 Procalcitonin: negative Antimicrobials: Influenza A swab positive Continue Tamiflu x 5 days total Cultures: Blood: pending Urine: pending MRSA: Negative Resident Physician Supervision Note: Dr. Moon was resident physician during care of patient. I separately evaluated patient and did history and exam. I discussed the case with the resident and generally agree with the findings and plan. Patient on minimal vent settings, tidal volumes greater than 500, minute ventilation approximately 8 L a minute, no secretion burden, chest x-ray clear proceeded with extubation to stop sedatives and hopefully allow for clearing and better evaluation of patient's encephalopathy. Patient had been off all sedatives for greater than 6 hours and did not demonstrate any improvement in his neuro status. Additionally he appeared to have some respiratory compromise secondary to increased oral secretion burden and inability to cough or deep breathe and maintain an adequate upright position. I believe this is all secondary to acute encephalopathy. I discussed the case with his cousin and we will proceed with intubation and obtain additional imaging studies to better elucidate the extent of his encephalopathy and possible neuro injury. I was able to discuss his social dynamic with his cousin. He does not have any direct family members, he has some close friends as well as his couple of cousins. At this point, [place] is the main point to disseminate information to the rest of the family and friends. Patient is critically ill due to respiratory failure leading to a bradycardic, asystolic arrest. I have personally spent 50 minutes of critical care time in the direct management of this patient. This is a life/limb threatening event. This includes time spent evaluating patient, direct bedside care, chart review, placing orders, interpretation of diagnostic studies, discussion with consultants, patient, and family members, as well as other required patient management activities. This time is exclusive of all separately billable procedures, and teaching time and separate from and in addition to any other critical care service time. Documented By: Warren Uriarte DO Consults & Procedures Consultants: Cardiology Procedures: CHEST ONE VIEW PORTABLE CLINICAL HISTORY: Respiratory failure COMPARISON STUDY: 10/13/2017 FINDINGS: The cardiac and mediastinal contours remain stable. There is an endotracheal tube 5 cm above the madelin. There is no focal pulmonary consolidation. There is no failure. There are no pleural effusions.[ There is a nasogastric tube which passes into the stomach. IMPRESSION: Endotracheal tube 5 cm above the madelin. No focal pulmonary consolidation. KATIE (Bedside) -no evidence of pericardial effusion and grossly normal biventricular function. -normal biventricular systolic function -No significant valvular regurgitation was noted with aortic valve, tricuspid valve, mitral valve. -The aortic valve was tricuspid in morphology with normal excursion and no . Data Medications: Current Inpatient Medications Medications (Trade) Dose Ordered Sig/Brook Route Start Time Stop Time Status Last Admin Dose Admin Enoxaparin Sodium (Lovenox Inj) 40 mg Q24H SQ 10/13/17 08:00 11/12/17 07:59 10/14/17 07:25 40 MG Artificial Tears (Lacri-Lube Oph Oint) 1 appln Q2H PRN OPB 10/13/17 05:30 11/12/17 05:29 Pantoprazole Sodium 40 mg/ Syringe 10 ml @ 5 mls/min DAILY@11 IV 10/13/17 11:00 11/12/17 10:59 10/14/17 11:14 5 MLS/MIN Fentanyl Citrate 250 ml @ 0 mls/hr Q0M IV 10/13/17 05:29 10/27/17 05:28 10/14/17 10:05 10 MLS/HR Ipratropium [place] (Atrovent Hfa Inhaler) 4 puffs Q4R INH 10/13/17 08:00 11/12/17 07:59 10/14/17 11:05 4 PUFFS Propofol (Diprivan Iv Emulsion 100ml Vial) 1 dose UD PRN IV 10/13/17 09:00 10/16/17 08:59 10/14/17 10:06 1 DOSE Thiamine HCl 100 mg/Syringe 10 ml @ 2 mls/min QAM IV 10/13/17 11:00 11/12/17 10:59 10/14/17 08:14 2 MLS/MIN Dexmedetomidine HCl 200 mcg/ Sodium Chloride 50 ml @ 0 mls/hr Q0M PRN IV 10/13/17 09:30 10/17/17 09:29 10/13/17 09:56 4.1 MLS/HR Albuterol (Ventolin Hfa Inhaler) 4 puffs Q4R INH 10/13/17 12:00 11/12/17 11:59 10/14/17 11:05 4 PUFFS Oseltamivir Phosphate (Tamiflu Susp) 75 mg BID NG 10/13/17 11:00 10/18/17 10:59 10/14/17 07:25 75 MG Aspirin (Aspirin Chew) 81 mg QAM PO 10/13/17 13:00 11/12/17 12:59 10/14/17 07:25 81 MG Enteral Nutritional Formula (Peptamen Intense VHP) 1,000 ml UD PRN OG 10/13/17 13:30 11/12/17 13:29 10/13/17 17:55 1,000 ML Senna (Senokot Tab) 8.6 mg QAM PRN PO 10/14/17 10:45 11/13/17 10:44 Methylprednisolone Sodium Succinate 40 mg/Syringe 0.64 ml @ 1.5 mls/min BID IV 10/14/17 21:00 11/13/17 20:59 Vital Signs: Date Time Temp Pulse Resp B/P (MAP) Pulse Ox O2 Delivery O2 Flow Rate FiO2 10/14/17 12:05 40 10/14/17 12:05 37.0 87 18 148/85 (106) 96 CPAP 40 Mechanical Ventilator 10/14/17 12:05 Mechanical Ventilator 10/14/17 11:06 40 10/14/17 10:00 37.1 86 16 152/90 (110) 97 Mechanical Ventilator 40 10/14/17 08:00 Mechanical Ventilator 10/14/17 08:00 Mechanical Ventilator 40 10/14/17 08:00 37.1 63 14 96/61 (73) 93 Mechanical Ventilator 40 10/14/17 08:00 40 10/14/17 07:17 40 10/14/17 06:14 100 17 171/98 (122) 93 Mechanical Ventilator 40 10/14/17 06:01 40 10/14/17 06:00 108 22 203/122 (149) 95 Mechanical Ventilator 40 10/14/17 04:00 37.4 76 14 130/83 (99) 97 Mechanical Ventilator 40 10/14/17 04:00 40 10/14/17 04:00 Mechanical Ventilator 40 10/14/17 03:00 40 10/14/17 02:00 69 14 105/66 (79) 93 Mechanical Ventilator 40 10/14/17 00:30 40 10/14/17 00:01 37.1 73 14 112/71 (85) 95 Mechanical Ventilator 40 10/13/17 23:59 40 10/13/17 23:59 Mechanical Ventilator 40 10/13/17 22:00 80 15 118/75 (89) 95 Mechanical Ventilator 40 10/13/17 20:20 30 10/13/17 20:00 37.4 99 18 140/99 (113) 93 Mechanical Ventilator 40 10/13/17 20:00 40 10/13/17 20:00 Mechanical Ventilator 40 10/13/17 18:00 37.0 85 16 148/84 (105) 93 Mechanical Ventilator 40 10/13/17 17:15 30 10/13/17 16:00 37.0 78 14 110/60 (77) 91 Mechanical Ventilator 30 10/13/17 16:00 30 10/13/17 14:50 37.0 78 14 88/67 (74) 91 Mechanical Ventilator 30 10/13/17 14:39 30 Laboratory Results: Last 24 Hours Test 10/13/17 16:24 10/13/17 17:01 10/13/17 18:18 10/13/17 19:29 White Blood Count 10.89 K/uL Red Blood Count 4.48 M/uL Hemoglobin 13.5 g/dL Hematocrit 42.9 % Mean Corpuscular Volume 95.8 fL Mean Corpuscular Hemoglobin 30.1 pg Mean Corpuscular Hemoglobin Concent 31.5 g/dl Platelet Count 180 K/uL Mean Platelet Volume 9.9 fL Neutrophils (%) (Auto) 85.0 % Lymphocytes (%) (Auto) 4.1 % Monocytes (%) (Auto) 10.5 % Eosinophils (%) (Auto) 0.1 % Basophils (%) (Auto) 0.0 % Neutrophils # (Auto) 9.26 K/uL Lymphocytes # (Auto) 0.45 K/uL Monocytes # (Auto) 1.14 K/uL Eosinophils # (Auto) 0.01 K/uL Basophils # (Auto) 0.00 K/uL RDW Standard Deviation 50.4 fL RDW Coefficient of Variation 14.3 % Immature Granulocyte % (Auto) 0.3 % Immature Granulocyte # (Auto) 0.03 K/uL Sodium Level 138 mmol/L Potassium Level 4.5 mmol/L Chloride Level 104 mmol/L Carbon Dioxide Level 25 mmol/L Anion Gap 10.0 mmol/L Blood Urea Nitrogen 19 mg/dl Creatinine 1.10 mg/dl Est Creatinine Clear Calc Drug Dose 76.4 ml/min Estimated GFR () 82.9 Estimated GFR (Non- 71.6 BUN/Creatinine Ratio 17.6 Random Glucose 141 mg/dl Calcium Level 7.5 mg/dl Phosphorus Level 4.0 mg/dl Magnesium Level 2.4 mg/dl Chemistry Specimen Hemolysis Prothrombin Time 10.5 SECONDS Prothromb Time International Ratio 1.0 Activated Partial Thromboplast Time 28.4 SECONDS Partial Thromboplastin Ratio 1.1 Blood Gas Sample Site R Radial Bedside Blood Gas pH (LAB) 7.25 Bedside Blood Gas pCO2 (LAB) 64 mmHg Bedside Blood Gas pO2 (LAB) 52 mmHg Bedside Blood Gas HCO3 (LAB) 28 meq/L Bedside Blood Gas Total CO2 30 mEq/l Bedside Blood Gas Base Excess (LAB) 1.0 meq/L Bedside Blood Gas O2 Saturation 79.0 % Maximino Test Pass Oxygen Delivery Device Ventilator Bedside Oxygen Rate (breaths/min) 12 Blood Gas Minute Ventilation 7.7 Bedside FiO2 30 % Blood Gas Tidal Volume 500 Blood Gas PEEP 5 Total Creatine Kinase 602 U/L Creatine Kinase MB 10.8 ng/ml Creatine Kinase MB Ratio 1.8 Troponin I 0.586 ng/ml Test 10/14/17 00:00 10/14/17 02:15 10/14/17 04:00 10/14/17 05:46 Gastric Fluid pH 4 Gastric Fluid Occult Blood POS Bedside Glucose 116 mg/dl 115 mg/dl White Blood Count 10.98 K/uL Red Blood Count 4.53 M/uL Hemoglobin 13.8 g/dL Hematocrit 43.4 % Mean Corpuscular Volume 95.8 fL Mean Corpuscular Hemoglobin 30.5 pg Mean Corpuscular Hemoglobin Concent 31.8 g/dl Platelet Count 183 K/uL Mean Platelet Volume 10.2 fL Neutrophils (%) (Auto) 79.4 % Lymphocytes (%) (Auto) 9.7 % Monocytes (%) (Auto) 10.5 % Eosinophils (%) (Auto) 0.0 % Basophils (%) (Auto) 0.0 % Neutrophils # (Auto) 8.72 K/uL Lymphocytes # (Auto) 1.07 K/uL Monocytes # (Auto) 1.15 K/uL Eosinophils # (Auto) 0.00 K/uL Basophils # (Auto) 0.00 K/uL RDW Standard Deviation 49.7 fL RDW Coefficient of Variation 14.1 % Immature Granulocyte % (Auto) 0.4 % Immature Granulocyte # (Auto) 0.04 K/uL Prothrombin Time 10.4 SECONDS Prothromb Time International Ratio 1.0 Activated Partial Thromboplast Time 32.8 SECONDS Partial Thromboplastin Ratio 1.3 Sodium Level 139 mmol/L Potassium Level 4.8 mmol/L Chloride Level 102 mmol/L Carbon Dioxide Level 34 mmol/L Anion Gap 3.0 mmol/L Blood Urea Nitrogen 22 mg/dl Creatinine 0.91 mg/dl Est Creatinine Clear Calc Drug Dose 92.4 ml/min Estimated GFR () 104.3 Estimated GFR (Non- 90.0 BUN/Creatinine Ratio 23.7 Random Glucose 127 mg/dl Lactic Acid Level 2.2 mmol/L Calcium Level 7.6 mg/dl Phosphorus Level 4.1 mg/dl Magnesium Level 2.7 mg/dl Test 10/14/17 08:52 10/14/17 12:10 Blood Gas Sample Site R Radial Bedside Blood Gas pH (LAB) 7.31 Bedside Blood Gas pCO2 (LAB) 61 mmHg Bedside Blood Gas pO2 (LAB) 81 mmHg Bedside Blood Gas HCO3 (LAB) 31 meq/L Bedside Blood Gas Total CO2 33 mEq/l Bedside Blood Gas Base Excess (LAB) 5.0 meq/L Bedside Blood Gas O2 Saturation 94.0 % Maximino Test Pass Oxygen Delivery Device Ventilator Bedside Oxygen Rate (breaths/min) 14 Blood Gas Minute Ventilation 7.5 Bedside FiO2 40 % Blood Gas Tidal Volume 500 Blood Gas PEEP 5 White Blood Count 11.36 K/uL Red Blood Count 4.26 M/uL Hemoglobin 13.1 g/dL Hematocrit 40.8 % Mean Corpuscular Volume 95.8 fL Mean Corpuscular Hemoglobin 30.8 pg Mean Corpuscular Hemoglobin Concent 32.1 g/dl Platelet Count 177 K/uL Mean Platelet Volume 10.0 fL Neutrophils (%) (Auto) 85.7 % Lymphocytes (%) (Auto) 6.6 % Monocytes (%) (Auto) 7.5 % Eosinophils (%) (Auto) 0.0 % Basophils (%) (Auto) 0.0 % Neutrophils # (Auto) 9.74 K/uL Lymphocytes # (Auto) 0.75 K/uL Monocytes # (Auto) 0.85 K/uL Eosinophils # (Auto) 0.00 K/uL Basophils # (Auto) 0.00 K/uL RDW Standard Deviation 49.3 fL RDW Coefficient of Variation 14.1 % Immature Granulocyte % (Auto) 0.2 % Immature Granulocyte # (Auto) 0.02 K/uL Resident Tracking Resident Involvement: Resident Care Provided Care Provided: [facility] [place] [facility]
--- NOTE | 2017-10-14 14:38 | Progress Note ---
Internal Med Progress Note Date of Service: Oct 14, 2017. Provider Documentation: SUBJECTIVE: Patient presented with resp distress and severe hypoxic and and had cardiac arrest s/p cpr and dose of epinephrine after which ROSC happened. Patient was intubated during this episode Patient still intubated doesn't open eyes on calling or respond to painful stimuli OBJECTIVE: Vital Signs-as noted below Exam: General-s/p intubation and sedation Neck-no neck masses seen Lungs-cta b/l no wheezing or crackles heard Heart-s1 and s2 heard regular rate and rhythm no murmurs Abdomen-soft bowel sounds present non tender no distension Extremities-no erythema Neuro-s/p intubation and sedation no response to painful stimuli Lab data as noted below. ASSESSMENT & PLAN: Patient is a 62 year old male presented secondary to respiratory distress and subsequently cardiopulmonary arrest Cardiopulmonary Arrest likely from Acute Hypoxic-Hypercapneic Respiratory Failure Possible Asthma/COPD Exacerbation from Influenza Influenza A Pcr on iv steroids and Tamflu positive cultures no growth so far appreciate critical acre and cardiology inputs Vent Dependent respiratory failure secondary to above vent management and weaning as per critical care. Elevated Lactic Acid will monitor levels Medical Records needs to obtain medical records re: past medical history and medications moreira the friend Linsey to obtain more information re: medical history , PCP, medications but was not able to contact him Will try to call cousin Fatemeh Del Rosario (ph: [phone]). DVT ppx Lovenox Disposition apparently patient lives in a trailer by himself PT/OT when stable Case Management Vital Signs: Date Time Temp Pulse Resp B/P (MAP) Pulse Ox O2 Delivery O2 Flow Rate FiO2 10/14/17 14:00 86 18 152/93 (112) 96 CPAP 40 Mechanical Ventilator 10/14/17 12:05 40 10/14/17 12:05 37.0 87 18 148/85 (106) 96 CPAP 40 Mechanical Ventilator 10/14/17 12:05 Mechanical Ventilator 10/14/17 11:06 40 10/14/17 10:00 37.1 86 16 152/90 (110) 97 Mechanical Ventilator 40 10/14/17 08:00 Mechanical Ventilator 10/14/17 08:00 Mechanical Ventilator 40 10/14/17 08:00 37.1 63 14 96/61 (73) 93 Mechanical Ventilator 40 10/14/17 08:00 40 10/14/17 07:17 40 10/14/17 06:14 100 17 171/98 (122) 93 Mechanical Ventilator 40 10/14/17 06:01 40 10/14/17 06:00 108 22 203/122 (149) 95 Mechanical Ventilator 40 10/14/17 04:00 37.4 76 14 130/83 (99) 97 Mechanical Ventilator 40 10/14/17 04:00 40 10/14/17 04:00 Mechanical Ventilator 40 10/14/17 03:00 40 10/14/17 02:00 69 14 105/66 (79) 93 Mechanical Ventilator 40 10/14/17 00:30 40 10/14/17 00:01 37.1 73 14 112/71 (85) 95 Mechanical Ventilator 40 10/13/17 23:59 40 10/13/17 23:59 Mechanical Ventilator 40 10/13/17 22:00 80 15 118/75 (89) 95 Mechanical Ventilator 40 10/13/17 20:20 30 10/13/17 20:00 37.4 99 18 140/99 (113) 93 Mechanical Ventilator 40 10/13/17 20:00 40 10/13/17 20:00 Mechanical Ventilator 40 10/13/17 18:00 37.0 85 16 148/84 (105) 93 Mechanical Ventilator 40 10/13/17 17:15 30 10/13/17 16:00 37.0 78 14 110/60 (77) 91 Mechanical Ventilator 30 10/13/17 16:00 30 10/13/17 14:50 37.0 78 14 88/67 (74) 91 Mechanical Ventilator 30 10/13/17 14:39 30 Lab Results: Results Past 24 Hours Test 10/13/17 16:24 10/13/17 17:01 10/13/17 18:18 10/13/17 19:29 Range/Units White Blood Count 10.89 4.8-10.8 K/uL Red Blood Count 4.48 4.7-6.1 M/uL Hemoglobin 13.5 14.0-18.0 g/dL Hematocrit 42.9 42-52 % Mean Corpuscular Volume 95.8 80-100 fL Mean Corpuscular Hemoglobin 30.1 25-34 pg Mean Corpuscular Hemoglobin Concent 31.5 32-36 g/dl Platelet Count 180 130-400 K/uL Mean Platelet Volume 9.9 7.4-10.4 fL Neutrophils (%) (Auto) 85.0 % Lymphocytes (%) (Auto) 4.1 % Monocytes (%) (Auto) 10.5 % Eosinophils (%) (Auto) 0.1 % Basophils (%) (Auto) 0.0 % Neutrophils # (Auto) 9.26 1.4-6.5 K/uL Lymphocytes # (Auto) 0.45 1.2-3.4 K/uL Monocytes # (Auto) 1.14 0.11-0.59 K/uL Eosinophils # (Auto) 0.01 0-0.5 K/uL Basophils # (Auto) 0.00 0-0.2 K/uL RDW Standard Deviation 50.4 36.4-46.3 fL RDW Coefficient of Variation 14.3 11.5-14.5 % Immature Granulocyte % (Auto) 0.3 % Immature Granulocyte # (Auto) 0.03 0.00-0.02 K/uL Sodium Level 138 136-145 mmol/L Potassium Level 4.5 3.5-5.1 mmol/L Chloride Level 104 98-107 mmol/L Carbon Dioxide Level 25 21-32 mmol/L Anion Gap 10.0 3-11 mmol/L Blood Urea Nitrogen 19 7-18 mg/dl Creatinine 1.10 0.60-1.40 mg/dl Est Creatinine Clear Calc Drug Dose 76.4 ml/min Estimated GFR () 82.9 Estimated GFR (Non- 71.6 BUN/Creatinine Ratio 17.6 10-20 Random Glucose 141 70-99 mg/dl Calcium Level 7.5 8.5-10.1 mg/dl Phosphorus Level 4.0 2.5-4.9 mg/dl Magnesium Level 2.4 1.8-2.4 mg/dl Chemistry Specimen Hemolysis Prothrombin Time 10.5 9.0-12.0 SECONDS Prothromb Time International Ratio 1.0 0.9-1.1 Activated Partial Thromboplast Time 28.4 21.0-31.0 SECONDS Partial Thromboplastin Ratio 1.1 Blood Gas Sample Site R Radial Bedside Blood Gas pH (LAB) 7.25 7.35-7.45 Bedside Blood Gas pCO2 (LAB) 64 35-46 mmHg Bedside Blood Gas pO2 (LAB) 52 80-95 mmHg Bedside Blood Gas HCO3 (LAB) 28 19-24 meq/L Bedside Blood Gas Total CO2 30 24-31 mEq/l Bedside Blood Gas Base Excess (LAB) 1.0 -9-1.8 meq/L Bedside Blood Gas O2 Saturation 79.0 90-95 % Maximino Test Pass Oxygen Delivery Device Ventilator Bedside Oxygen Rate (breaths/min) 12 Blood Gas Minute Ventilation 7.7 Bedside FiO2 30 % Blood Gas Tidal Volume 500 Blood Gas PEEP 5 Total Creatine Kinase 602 39-308 U/L Creatine Kinase MB 10.8 0.5-3.6 ng/ml Creatine Kinase MB Ratio 1.8 0-3.0 Troponin I 0.586 0-0.045 ng/ml Test 10/14/17 00:00 10/14/17 02:15 10/14/17 04:00 10/14/17 05:46 Range/Units Gastric Fluid pH 4 Gastric Fluid Occult Blood POS NEG Bedside Glucose 116 115 70-99 mg/dl White Blood Count 10.98 4.8-10.8 K/uL Red Blood Count 4.53 4.7-6.1 M/uL Hemoglobin 13.8 14.0-18.0 g/dL Hematocrit 43.4 42-52 % Mean Corpuscular Volume 95.8 80-100 fL Mean Corpuscular Hemoglobin 30.5 25-34 pg Mean Corpuscular Hemoglobin Concent 31.8 32-36 g/dl Platelet Count 183 130-400 K/uL Mean Platelet Volume 10.2 7.4-10.4 fL Neutrophils (%) (Auto) 79.4 % Lymphocytes (%) (Auto) 9.7 % Monocytes (%) (Auto) 10.5 % Eosinophils (%) (Auto) 0.0 % Basophils (%) (Auto) 0.0 % Neutrophils # (Auto) 8.72 1.4-6.5 K/uL Lymphocytes # (Auto) 1.07 1.2-3.4 K/uL Monocytes # (Auto) 1.15 0.11-0.59 K/uL Eosinophils # (Auto) 0.00 0-0.5 K/uL Basophils # (Auto) 0.00 0-0.2 K/uL RDW Standard Deviation 49.7 36.4-46.3 fL RDW Coefficient of Variation 14.1 11.5-14.5 % Immature Granulocyte % (Auto) 0.4 % Immature Granulocyte # (Auto) 0.04 0.00-0.02 K/uL Prothrombin Time 10.4 9.0-12.0 SECONDS Prothromb Time International Ratio 1.0 0.9-1.1 Activated Partial Thromboplast Time 32.8 21.0-31.0 SECONDS Partial Thromboplastin Ratio 1.3 Sodium Level 139 136-145 mmol/L Potassium Level 4.8 3.5-5.1 mmol/L Chloride Level 102 98-107 mmol/L Carbon Dioxide Level 34 21-32 mmol/L Anion Gap 3.0 3-11 mmol/L Blood Urea Nitrogen 22 7-18 mg/dl Creatinine 0.91 0.60-1.40 mg/dl Est Creatinine Clear Calc Drug Dose 92.4 ml/min Estimated GFR () 104.3 Estimated GFR (Non- 90.0 BUN/Creatinine Ratio 23.7 10-20 Random Glucose 127 70-99 mg/dl Lactic Acid Level 2.2 0.4-2.0 mmol/L Calcium Level 7.6 8.5-10.1 mg/dl Phosphorus Level 4.1 2.5-4.9 mg/dl Magnesium Level 2.7 1.8-2.4 mg/dl Test 10/14/17 08:52 10/14/17 12:10 Range/Units Blood Gas Sample Site R Radial Bedside Blood Gas pH (LAB) 7.31 7.35-7.45 Bedside Blood Gas pCO2 (LAB) 61 35-46 mmHg Bedside Blood Gas pO2 (LAB) 81 80-95 mmHg Bedside Blood Gas HCO3 (LAB) 31 19-24 meq/L Bedside Blood Gas Total CO2 33 24-31 mEq/l Bedside Blood Gas Base Excess (LAB) 5.0 -9-1.8 meq/L Bedside Blood Gas O2 Saturation 94.0 90-95 % Maximino Test Pass Oxygen Delivery Device Ventilator Bedside Oxygen Rate (breaths/min) 14 Blood Gas Minute Ventilation 7.5 Bedside FiO2 40 % Blood Gas Tidal Volume 500 Blood Gas PEEP 5 White Blood Count 11.36 4.8-10.8 K/uL Red Blood Count 4.26 4.7-6.1 M/uL Hemoglobin 13.1 14.0-18.0 g/dL Hematocrit 40.8 42-52 % Mean Corpuscular Volume 95.8 80-100 fL Mean Corpuscular Hemoglobin 30.8 25-34 pg Mean Corpuscular Hemoglobin Concent 32.1 32-36 g/dl Platelet Count 177 130-400 K/uL Mean Platelet Volume 10.0 7.4-10.4 fL Neutrophils (%) (Auto) 85.7 % Lymphocytes (%) (Auto) 6.6 % Monocytes (%) (Auto) 7.5 % Eosinophils (%) (Auto) 0.0 % Basophils (%) (Auto) 0.0 % Neutrophils # (Auto) 9.74 1.4-6.5 K/uL Lymphocytes # (Auto) 0.75 1.2-3.4 K/uL Monocytes # (Auto) 0.85 0.11-0.59 K/uL Eosinophils # (Auto) 0.00 0-0.5 K/uL Basophils # (Auto) 0.00 0-0.2 K/uL RDW Standard Deviation 49.3 36.4-46.3 fL RDW Coefficient of Variation 14.1 11.5-14.5 % Immature Granulocyte % (Auto) 0.2 % Immature Granulocyte # (Auto) 0.02 0.00-0.02 K/uL
[2017-10-14 16:11] LABS: COMPLETE YES; HEMATOCRIT 44.9 % (42-52); IG% 0.3 %; LYMPH % 7.1 %; LYMPH ABS # 0.81 K/uL (1.2-3.4); MEAN CELL VOLUME 96.4 fL (80-100); MEAN CORPUSCULAR HEMOGLOBIN 30.3 pg (25-34); MEAN CORPUSCULAR HGB CONC 31.4 g/dl (32-36); MONO % 8.4 %; NEUT % 84.2 %; PLATELET COUNT 194 K/uL (130-400); RED BLOOD COUNT 4.66 M/uL (4.7-6.1); WHITE BLOOD COUNT 11.47 K/uL (4.8-10.8)
[2017-10-14 16:30] LABS: CALCIUM 8.3 mg/dl (8.5-10.1); CREATININE 0.92 mg/dl (0.60-1.40); MAGNESIUM 2.4 mg/dl (1.8-2.4); POTASSIUM 4.5 mmol/L (3.5-5.1)
[2017-10-14 16:32] LABS: PHOSPHORUS 2.1 mg/dl (2.5-4.9)
[2017-10-14 16:40] LABS: INR 0.9 (0.9-1.1); PARTIAL THROMBOPLASTIN RATIO 1.1; PROTHROMBIN TIME (PATIENT) 10.1 SECONDS (9.0-12.0)
[2017-10-14] MEDS ORDERED: RAPID SEQUENCE INDUCTION BAG ONE (18:18)
--- NOTE | 2017-10-14 18:58 | DIAGNOSTIC IMAGING REPORT ---
CHEST ONE VIEW PORTABLE CLINICAL HISTORY: intubation tube position COMPARISON STUDY: 10/14/2017 6:55 AM FINDINGS: Endotracheal tube 2.8 cm above the madelin. Lungs remain grossly clear. Slight nonspecific interstitial prominence left lung base. IMPRESSION: Endotracheal tube 2.8 cm above the madelin. Slight interstitial prominence left lung base. The above report was generated using voice recognition software. It may contain grammatical, syntax or spelling errors. Electronically signed by: Mario Gomez M.D. 10/14/2017 6:57 PM Dictated Date/Time: 10/14/2017 6:56 PM
[2017-10-14] MEDS ORDERED: ALBUT/IPRATROP 3MG/0.5MG NEB 3 ML VIAL INH SCH (20:00)
[2017-10-14] MEDS: PEPTAMEN INTENSE VHP 1000ML BAG OG PRN (22:30)
--- NOTE | 2017-10-14 22:35 | DIAGNOSTIC IMAGING REPORT ---
ORBIT RADIOGRAPHS 3 VIEWS HISTORY: pre-MRI screening. COMPARISON: Head CT October 13, 2017. FINDINGS: There are no radiopaque foreign bodies identified within the orbits. Endotracheal and nasogastric tubes are incidentally noted. IMPRESSION: No radiopaque foreign bodies identified within the orbits. Electronically signed by: Ramírez Richardson M.D. 10/14/2017 10:34 PM Dictated Date/Time: 10/14/2017 10:32 PM
--- NOTE | 2017-10-14 22:37 | DIAGNOSTIC IMAGING REPORT ---
KUB CLINICAL HISTORY: Requested by MRI, Recent placement of OG tube. COMPARISON STUDY: None. FINDINGS: Tip of nasogastric tube is within the body of the stomach. Bowel gas pattern is normal. IMPRESSION: 1. Tip of nasogastric tube within body of stomach. 2. No evidence for a bowel obstruction. 3. No contraindication to MRI within the abdomen or pelvis. Electronically signed by: Ramírez Richardson M.D. 10/14/2017 10:35 PM Dictated Date/Time: 10/14/2017 10:34 PM
[2017-10-15] VITALS (41 sets, daily range): BP systolic 102–222; BP diastolic 65–127; PULSE 62–98; TEMP 36.9–37.9; O2SAT 93–100
[2017-10-15] MEDS: PROPOFOL IV EMULSION 10 MG/ML 100 ML VIAL IV PRN ×2 (02:08→06:25)
[2017-10-15] MEDS ORDERED: GADAVIST IV PRN (02:20)
[2017-10-15] MEDS: IPRATROPIUM BROMIDE HFA INHALER INH SCH ×6 (04:00→23:30)
[2017-10-15] MEDS: ALBUTEROL HFA 8 GM INHALER INH SCH ×6 (04:00→23:30)
[2017-10-15 05:48] LABS: COMPLETE YES; HEMATOCRIT 40.6 % (42-52); IG% 0.1 %; LYMPH % 8.2 %; LYMPH ABS # 0.78 K/uL (1.2-3.4); MEAN CELL VOLUME 95.3 fL (80-100); MEAN CORPUSCULAR HEMOGLOBIN 30.3 pg (25-34); MEAN CORPUSCULAR HGB CONC 31.8 g/dl (32-36); MEAN PLATELET VOLUME 10.2 fL (7.4-10.4); MONO % 9.4 %; NEUT % 82.3 %; PLATELET COUNT 173 K/uL (130-400); RED BLOOD COUNT 4.26 M/uL (4.7-6.1); WHITE BLOOD COUNT 9.48 K/uL (4.8-10.8)
[2017-10-15 06:22] LABS: ISTAT ALLEN TEST Pass; ISTAT ARTERIAL BLOOD GAS HCO3 35 meq/L (19-24); ISTAT ARTERIAL BLOOD GAS PCO2 57 mmHg (35-46); ISTAT ARTERIAL BLOOD GAS PO2 75 mmHg (80-95); ISTAT CARBON DIOXIDE 37 mEq/l (24-31); ISTAT DELIVERY SYSTEM Ventilator; ISTAT FIO2 40 %; ISTAT PEEP 6; ISTAT RATE 14; ISTAT SITE R Radial; VE 7.4; Vt 500
[2017-10-15 06:23] LABS: BUN/CREATININE RATIO 35.8 (10-20); CREATININE 0.68 mg/dl (0.60-1.40); MAGNESIUM 2.4 mg/dl (1.8-2.4); PHOSPHORUS 2.6 mg/dl (2.5-4.9); POTASSIUM 4.4 mmol/L (3.5-5.1)
--- NOTE | 2017-10-15 06:33 | DIAGNOSTIC IMAGING REPORT ---
MRI OF THE BRAIN WITHOUT AND WITH IV CONTRAST CLINICAL HISTORY: encephalopathy HISTORY OF CARDIAC ARREST. COMPARISON STUDY: Noncontrast head CT dated 10/13/2017 TECHNIQUE: MRI of the brain was performed from the vertex to the skull base utilizing various T1 and T2 weighted sequences. Following the IV administration of 6 mL of Gadavist contrast, additional enhanced images were obtained. FINDINGS: Sagittal T1, axial diffusion, proton density and T2 weighted axial, coronal FLAIR, and pre and post axial T1-weighted images were acquired. These were supplemented with post gadolinium coronal T1 weighted images. No intra or extra-axial mass lesions are visualized. Axial diffusion-weighted images reveal no evidence of acute or subacute infarction. There is no evidence of ventricular dilatation. Proton density T2-weighted and FLAIR images reveal scattered foci of increased T2 signal within the white matter, likely on a small vessel basis. There are no abnormal flow voids. There is no evidence of pathologic enhancement. There is fluid within the posterior nasopharynx. There are maxillary sinus retention cysts. IMPRESSION: 1. Examination compromised secondary to patient motion 2. No acute intracranial findings. No evidence of acute or subacute infarction. No evidence for intracranial mass. Electronically signed by: Sander Ricketts M.D. 10/15/2017 6:32 AM Dictated Date/Time: 10/15/2017 6:29 AM
--- NOTE | 2017-10-15 06:41 | DIAGNOSTIC IMAGING REPORT ---
CT HEAD WITHOUT CONTRAST (CT) CLINICAL HISTORY: Loss of consciousness. Cardiac arrest. COMPARISON STUDY: 10/13/2017 TECHNIQUE: Axial CT of the brain is performed from the vertex to the skull base. IV contrast was not administered for this examination. A dose lowering technique was utilized adhering to the principles of ALARA. CT DOSE: 729.78 mGycm FINDINGS: No intra or extra-axial mass lesions are visualized. There is no CT evidence of acute cortical infarction. There is no evidence of midline shift. There is no acute hemorrhage. No calvarial fractures are visualized. There are patchy white matter hypodensities likely on a small vessel basis. There is no evidence of pathologic ventricular dilatation. There is no evidence of acute sinusitis. There is fluid within the posterior nasopharynx. There is a left maxillary sinus retention cyst. IMPRESSION: No acute intracranial findings Electronically signed by: Sander Ricketts M.D. 10/15/2017 6:40 AM Dictated Date/Time: 10/15/2017 6:39 AM
--- NOTE | 2017-10-15 06:57 | DIAGNOSTIC IMAGING REPORT ---
Brain MRA HISTORY: Loss of consciousness s/p cardiac arrest TECHNIQUE: 3-D [id number] MRA of the brain was performed without contrast. COMPARISON STUDY: None. FINDINGS: Visualized intracranial internal carotid arteries, distal vertebral arteries, and basilar artery are widely patent. There is no significant stenosis, occlusion, or aneurysm seen within the bilateral ACAs, MCAs, or application chemist. IMPRESSION: No significant stenosis, occlusion, or aneurysm within the [place]. Electronically signed by: Sadiq Beckford M.D. 10/15/2017 6:56 AM Dictated Date/Time: 10/15/2017 6:52 AM
--- NOTE | 2017-10-15 07:26 | DIAGNOSTIC IMAGING REPORT ---
CHEST ONE VIEW PORTABLE CLINICAL HISTORY: Intubated RESPIRATORY FAILURE COMPARISON STUDY: N 2117 FINDINGS: The cardiac and mediastinal contours are normal. There is a nasogastric tube which passes into the stomach. There is an endotracheal tube 4 cm above the madelin. There is no failure. There is no focal pulmonary consolidation.[ No pleural effusions are visualized. IMPRESSION: Endotracheal tube 4 cm above the madelin. Nasogastric tube passing into the stomach. No evidence of focal pulmonary consolidation. Electronically signed by: Sander Ricketts M.D. 10/15/2017 7:25 AM Dictated Date/Time: 10/15/2017 7:23 AM
[2017-10-15] MEDS: ENOXAPARIN 40 MG/0.4 ML SYR SQ SCH (09:15)
[2017-10-15] MEDS: METHYLPREDNISOLONE IV 40 MG in SYRINGE 0 ML IV SCH ×2 (09:16→20:27)
[2017-10-15] MEDS: ASPIRIN 81 MG CHEW PO SCH (09:18)
[2017-10-15] MEDS: THIAMINE HCL INJ 100 MG in SYRINGE 9 ML IV SCH (09:18)
[2017-10-15] MEDS: OSELTAMIVIR PHOSPHATE SUSP 75 MG/12.5 ML UDP NG SCH ×2 (09:19→20:27)
[2017-10-15] MEDS: PANTOprazole INJ 40 MG in SYRINGE 0 ML IV SCH (09:19)
--- NOTE | 2017-10-15 09:35 | Critical Care Progress Note ---
Critical Care Progress Note Date of Service Oct 15, 2017. ICU Day ICU Day Number: [address] Uriarte Subjective NO acute evetns. Propofol currently at rate of 50 . Tube feeds restarted ay 20 Objective GENERAL: sedated, no distress EYE EXAM: PERRL and EOM's grossly intact OROPHARYNX: no exudate, no erythema, lips, buccal mucosa, and tongue normal, s/ p intubation NECK: supple, no adenopathy, LUNGS: Clear to auscultation. HEART: no murmurs, S1 normal and S2 normal ABDOMEN: abdomen soft, non-tender, normo-active bowel sounds, no masses, LOWER EXTREMITIES: No pitting edema. 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 CT head dated 10/13: Result: No acute intracranial abnormality MRA: No significant stenosis, occlusion, or aneurysm within the [place]. MRI: No acute intracranial findings. No evidence of acute or subacute infarction. No evidence for intracranial mass. Repeat EEG Respiratory: COPD exacerbation in setting of Influenza COPD exacerbation: Dec Solumedrol to 40 mg BID, Albuterol neb Chest X-ray(10/15/17): Reviewed: clear lungs, ET Tube 4 cm from madelin Respiratory prophylaxis: Albuterol Cardiovascular: Cardiac Arrest s/p ROSC CV drips: Remains off vasoactive medications Rhythm: Sinus ECHO: Echo dated 10/13 :Technically Limited study due to poor acoustic windows with patient on vent Bedside KATIE (10/13/17): no evidence of pericardial effusion and grossly normal biventricular function,normal biventricular systolic function, No significant valvular regurgitation Fluids/Renal: IV Fluids: Fluids from intravenous medications Banda: Present GI/Nutrition: Feeding: restarted Peptamen at goal of 40 cc/hr Prophylaxis: On Protonix drip Bowel movements:None, Start Senokot, Dulcolax Added Miralax daily Endocrine: Last 24 hour glucose: Ranging 127 to 169 TSH wnl Hematology: Hemoglobin 14, No Leukocytosis DVT prophylaxis: Lovenox Infectious Disease/Immunology: Influenza Tmax: 37.5 Procalcitonin: negative Antimicrobials: none Influenza A swab positive Continue Tamiflu x 5 days total Cultures: Blood: NGTD Urine: NGTD MRSA: Negative Resident Physician Supervision Note: Dr. Moon was resident physician during care of patient. I separately evaluated patient and did history and exam. I discussed the case with the resident and generally agree with the findings and plan. At the present time we have repeated an EEG which does not demonstrate seizure activity, neuro imaging is largely unremarkable. I have discussed the case with Dr. Marion of neurology and we are both in agreement that the patient is likely severed devastating neurological and nontoxic injury. 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 I have conveyed this information to Fatemeh the patient's cousin. At this point we're planning on having a family and friend discussion on Friday. It has been learned through friends and family that the patient had an generally indicated that he would not want life-sustaining therapies if he was going to be permanently disabled and living in a halfway. I also discussed with Fatemeh that the patient would likely need a percutaneous gastrostomy tube for permanent feeding access for possible placement into a long-term care facility. I am not extubating the patient at this time until we have more definitive plans from the family meeting. The patient's respiratory status has improved we will discontinue the steroids after 5 days. I do not feel the patient is the best candidate for tracheostomy as he does not need true ventilator weaning and is more neurological issue and tracheostomy does not entirely mitigate his risk for aspiration and subsequent pneumonias in his encephalopathic state, and actually increases the risk for pneumonia by bypassing the bodies defenses and humidification system. I have personally spent 45 minutes of critical care time in the direct management of this patient. This is a life/limb threatening event. This includes time spent evaluating patient, direct bedside care, chart review, placing orders, interpretation of diagnostic studies, discussion with consultants, patient, and family members, as well as other required patient management activities. This time is exclusive of all separately billable procedures, and teaching time and separate from and in addition to any other critical care service time. Documented By: Warren Uriarte DO Consults & Procedures Consultants: Cardiology Procedures: Brain MRA HISTORY: Loss of consciousness s/p cardiac arrest TECHNIQUE: 3-D [id number] MRA of the brain was performed without contrast. COMPARISON STUDY: None. FINDINGS: Visualized intracranial internal carotid arteries, distal vertebral arteries, and basilar artery are widely patent. There is no significant stenosis, occlusion, or aneurysm seen within the bilateral ACAs, MCAs, or energy assistant. IMPRESSION: No significant stenosis, occlusion, or aneurysm within the [place]. ] MRI OF THE BRAIN WITHOUT AND WITH IV CONTRAST CLINICAL HISTORY: encephalopathy HISTORY OF CARDIAC ARREST. COMPARISON STUDY: Noncontrast head CT dated 10/13/2017 TECHNIQUE: MRI of the brain was performed from the vertex to the skull base utilizing various T1 and T2 weighted sequences. Following the IV administration of 6 mL of Gadavist contrast, additional enhanced images were obtained. FINDINGS: Sagittal T1, axial diffusion, proton density and T2 weighted axial, coronal FLAIR, and pre and post axial T1-weighted images were acquired. These were supplemented with post gadolinium coronal T1 weighted images. No intra or extra-axial mass lesions are visualized. Axial diffusion-weighted images reveal no evidence of acute or subacute infarction. There is no evidence of ventricular dilatation. Proton density T2-weighted and FLAIR images reveal scattered foci of increased T2 signal within the white matter, likely on a small vessel basis. There are no abnormal flow voids. There is no evidence of pathologic enhancement. There is fluid within the posterior nasopharynx. There are maxillary sinus retention cysts. IMPRESSION: 1. Examination compromised secondary to patient motion 2. No acute intracranial findings. No evidence of acute or subacute infarction. No evidence for intracranial mass. ] CHEST ONE VIEW PORTABLE CLINICAL HISTORY: Intubated RESPIRATORY FAILURE COMPARISON STUDY: N 2117 FINDINGS: The cardiac and mediastinal contours are normal. There is a nasogastric tube which passes into the stomach. There is an endotracheal tube 4 cm above the madelin. There is no failure. There is no focal pulmonary consolidation.[ No pleural effusions are visualized. IMPRESSION: Endotracheal tube 4 cm above the madelin. Nasogastric tube passing into the stomach. No evidence of focal pulmonary consolidation. -no evidence of pericardial effusion and grossly normal biventricular function. -normal biventricular systolic function -No significant valvular regurgitation was noted with aortic valve, tricuspid valve, mitral valve. -The aortic valve was tricuspid in morphology with normal excursion and no . Data Medications: Current Inpatient Medications Medications (Trade) Dose Ordered Sig/Brook Route Start Time Stop Time Status Last Admin Dose Admin Enoxaparin Sodium (Lovenox Inj) 40 mg Q24H SQ 10/13/17 08:00 11/12/17 07:59 10/15/17 09:15 40 MG Artificial Tears (Lacri-Lube Oph Oint) 1 appln Q2H PRN OPB 10/13/17 05:30 11/12/17 05:29 Pantoprazole Sodium 40 mg/ Syringe 10 ml @ 5 mls/min DAILY@11 IV 10/13/17 11:00 11/12/17 10:59 10/15/17 09:19 5 MLS/MIN Fentanyl Citrate 250 ml @ 0 mls/hr Q0M IV 10/13/17 05:29 10/27/17 05:28 10/14/17 10:05 10 MLS/HR Propofol (Diprivan Iv Emulsion 100ml Vial) 1 dose UD PRN IV 10/13/17 09:00 10/16/17 08:59 10/15/17 06:25 1 DOSE Thiamine HCl 100 mg/Syringe 10 ml @ 2 mls/min QAM IV 10/13/17 11:00 11/12/17 10:59 10/15/17 09:18 2 MLS/MIN Dexmedetomidine HCl 200 mcg/ Sodium Chloride 50 ml @ 0 mls/hr Q0M PRN IV 10/13/17 09:30 10/17/17 09:29 10/13/17 09:56 4.1 MLS/HR Oseltamivir Phosphate (Tamiflu Susp) 75 mg BID NG 10/13/17 11:00 10/18/17 10:59 10/15/17 09:19 75 MG Aspirin (Aspirin Chew) 81 mg QAM PO 10/13/17 13:00 11/12/17 12:59 10/15/17 09:18 81 MG Enteral Nutritional Formula (Peptamen Intense VHP) 1,000 ml UD PRN OG 10/13/17 13:30 11/12/17 13:29 10/14/17 22:30 1,000 ML Senna (Senokot Tab) 8.6 mg QAM PRN PO 10/14/17 10:45 11/13/17 10:44 Methylprednisolone Sodium Succinate 40 mg/Syringe 0.64 ml @ 1.5 mls/min BID IV 10/14/17 21:00 11/13/17 20:59 10/15/17 09:16 1.5 MLS/MIN Ipratropium [place] (Atrovent Hfa Inhaler) 4 puffs Q4R INH 10/14/17 20:00 11/13/17 19:59 10/15/17 07:39 4 PUFFS Albuterol (Ventolin Hfa Inhaler) 4 puffs Q4R INH 10/14/17 20:00 11/13/17 19:59 10/15/17 07:39 4 PUFFS Gadobutrol (Gadavist) 6.5 mmol UD PRN IV 10/15/17 02:20 10/19/17 02:19 Vital Signs: Date Time Temp Pulse Resp B/P (MAP) Pulse Ox O2 Delivery O2 Flow Rate FiO2 10/15/17 08:00 37.1 65 18 163/79 (107) 97 Mechanical Ventilator 40 10/15/17 08:00 50 10/15/17 08:00 Mechanical Ventilator 40 10/15/17 07:39 50 10/15/17 06:01 37.1 65 14 111/65 (80) 95 Mechanical Ventilator 40 10/15/17 05:30 50 10/15/17 05:01 37.3 69 15 103/66 (78) 97 Mechanical Ventilator 50 10/15/17 04:01 37.7 74 16 110/71 (84) 97 Mechanical Ventilator 50 10/15/17 04:00 50 10/15/17 04:00 Mechanical Ventilator 50 10/15/17 03:59 37.7 75 16 111/75 (87) 100 Mechanical Ventilator 50 10/15/17 03:08 37.8 87 18 170/112 (131) 100 Mechanical Ventilator 50 10/15/17 03:00 50 10/15/17 01:01 37.8 70 16 102/65 (77) 96 Mechanical Ventilator 50 10/15/17 00:01 50 10/15/17 00:01 Mechanical Ventilator 50 10/15/17 00:01 37.9 73 17 119/71 (87) 97 Mechanical Ventilator 50 10/14/17 23:01 37.9 73 14 109/68 (82) 98 Mechanical Ventilator 50 10/14/17 23:00 50 10/14/17 22:01 37.9 77 13 126/80 (95) 95 Mechanical Ventilator 50 10/14/17 21:01 37.9 74 14 117/66 (83) 98 Mechanical Ventilator 50 10/14/17 20:53 50 10/14/17 20:01 37.5 74 14 112/66 (81) 98 Mechanical Ventilator 50 10/14/17 20:00 Mechanical Ventilator 50 10/14/17 20:00 50 10/14/17 19:01 80 14 127/82 (97) 100 Mechanical Ventilator 50 10/14/17 18:30 50 10/14/17 16:00 88 20 96 Nasal Cannula 4.0 10/14/17 16:00 Nasal Cannula 4.0 10/14/17 14:35 40 10/14/17 14:00 86 18 152/93 (112) 96 CPAP 40 Mechanical Ventilator 10/14/17 12:05 40 10/14/17 12:05 37.0 87 18 148/85 (106) 96 CPAP 40 Mechanical Ventilator 10/14/17 12:05 Mechanical Ventilator 10/14/17 11:06 40 10/14/17 10:00 37.1 86 16 152/90 (110) 97 Mechanical Ventilator 40 Laboratory Results: Last 24 Hours Test 10/14/17 12:10 10/14/17 15:55 10/15/17 05:29 10/15/17 05:56 White Blood Count 11.36 K/uL 11.47 K/uL 9.48 K/uL Red Blood Count 4.26 M/uL 4.66 M/uL 4.26 M/uL Hemoglobin 13.1 g/dL 14.1 g/dL 12.9 g/dL Hematocrit 40.8 % 44.9 % 40.6 % Mean Corpuscular Volume 95.8 fL 96.4 fL 95.3 fL Mean Corpuscular Hemoglobin 30.8 pg 30.3 pg 30.3 pg Mean Corpuscular Hemoglobin Concent 32.1 g/dl 31.4 g/dl 31.8 g/dl Platelet Count 177 K/uL 194 K/uL 173 K/uL Mean Platelet Volume 10.0 fL 10.0 fL 10.2 fL Neutrophils (%) (Auto) 85.7 % 84.2 % 82.3 % Lymphocytes (%) (Auto) 6.6 % 7.1 % 8.2 % Monocytes (%) (Auto) 7.5 % 8.4 % 9.4 % Eosinophils (%) (Auto) 0.0 % 0.0 % 0.0 % Basophils (%) (Auto) 0.0 % 0.0 % 0.0 % Neutrophils # (Auto) 9.74 K/uL 9.67 K/uL 7.80 K/uL Lymphocytes # (Auto) 0.75 K/uL 0.81 K/uL 0.78 K/uL Monocytes # (Auto) 0.85 K/uL 0.96 K/uL 0.89 K/uL Eosinophils # (Auto) 0.00 K/uL 0.00 K/uL 0.00 K/uL Basophils # (Auto) 0.00 K/uL 0.00 K/uL 0.00 K/uL RDW Standard Deviation 49.3 fL 50.1 fL 48.4 fL RDW Coefficient of Variation 14.1 % 14.1 % 13.9 % Immature Granulocyte % (Auto) 0.2 % 0.3 % 0.1 % Immature Granulocyte # (Auto) 0.02 K/uL 0.03 K/uL 0.01 K/uL Prothrombin Time 10.1 SECONDS Prothromb Time International Ratio 0.9 Activated Partial Thromboplast Time 27.3 SECONDS Partial Thromboplastin Ratio 1.1 Sodium Level 138 mmol/L 140 mmol/L Potassium Level 4.5 mmol/L 4.4 mmol/L Chloride Level 101 mmol/L 103 mmol/L Carbon Dioxide Level 33 mmol/L 35 mmol/L Anion Gap 4.0 mmol/L 3.0 mmol/L Blood Urea Nitrogen 24 mg/dl 24 mg/dl Creatinine 0.92 mg/dl 0.68 mg/dl Est Creatinine Clear Calc Drug Dose 80.3 ml/min 108.7 ml/min Estimated GFR () 102.9 118.6 Estimated GFR (Non- 88.8 102.4 BUN/Creatinine Ratio 26.0 35.8 Random Glucose 140 mg/dl 169 mg/dl Calcium Level 8.3 mg/dl 8.0 mg/dl Phosphorus Level 2.1 mg/dl 2.6 mg/dl Magnesium Level 2.4 mg/dl 2.4 mg/dl Blood Gas Sample Site R Radial Bedside Blood Gas pH (LAB) 7.40 Bedside Blood Gas pCO2 (LAB) 57 mmHg Bedside Blood Gas pO2 (LAB) 75 mmHg Bedside Blood Gas HCO3 (LAB) 35 meq/L Bedside Blood Gas Total CO2 37 mEq/l Bedside Blood Gas Base Excess (LAB) 10.0 meq/L Bedside Blood Gas O2 Saturation 94.0 % Maximino Test Pass Oxygen Delivery Device Ventilator Bedside Oxygen Rate (breaths/min) 14 Blood Gas Minute Ventilation 7.4 Bedside FiO2 40 % Blood Gas Tidal Volume 500 Blood Gas PEEP 6
--- NOTE | 2017-10-15 10:01 | EEG Procedure Note ---
EEG Procedure Note Date of Service Oct 15, 2017. Start / End Times Start Time: 9:25 AM End Time: 9:45 AM Referring Physician Rashad Moon History This is a 62-year-old male who presented in respiratory cardiac arrest. Patient is unresponsive. EEG for further neurological prognosis and to evaluate for possible seizure etiology. At the time of this recording the patient was reportedly off of all sedation for 3 hours. Home Medication List Unable to Obtain Active Prescriptions or Reported Meds Inpatient Medication List Current Inpatient Medications Medications (Trade) Dose Ordered Sig/Brook Route Start Time Stop Time Status Last Admin Dose Admin Enoxaparin Sodium (Lovenox Inj) 40 mg Q24H SQ 10/13/17 08:00 11/12/17 07:59 10/15/17 09:15 40 MG Artificial Tears (Lacri-Lube Oph Oint) 1 appln Q2H PRN OPB 10/13/17 05:30 11/12/17 05:29 Pantoprazole Sodium 40 mg/ Syringe 10 ml @ 5 mls/min DAILY@11 IV 10/13/17 11:00 11/12/17 10:59 10/15/17 09:19 5 MLS/MIN Fentanyl Citrate 250 ml @ 0 mls/hr Q0M IV 10/13/17 05:29 10/27/17 05:28 10/14/17 10:05 10 MLS/HR Propofol (Diprivan Iv Emulsion 100ml Vial) 1 dose UD PRN IV 10/13/17 09:00 10/16/17 08:59 10/15/17 06:25 1 DOSE Thiamine HCl 100 mg/Syringe 10 ml @ 2 mls/min QAM IV 10/13/17 11:00 11/12/17 10:59 10/15/17 09:18 2 MLS/MIN Dexmedetomidine HCl 200 mcg/ Sodium Chloride 50 ml @ 0 mls/hr Q0M PRN IV 10/13/17 09:30 10/17/17 09:29 10/13/17 09:56 4.1 MLS/HR Oseltamivir Phosphate (Tamiflu Susp) 75 mg BID NG 10/13/17 11:00 10/18/17 10:59 10/15/17 09:19 75 MG Aspirin (Aspirin Chew) 81 mg QAM PO 10/13/17 13:00 11/12/17 12:59 10/15/17 09:18 81 MG Enteral Nutritional Formula (Peptamen Intense VHP) 1,000 ml UD PRN OG 10/13/17 13:30 11/12/17 13:29 10/14/17 22:30 1,000 ML Senna (Senokot Tab) 8.6 mg QAM PRN PO 10/14/17 10:45 11/13/17 10:44 Methylprednisolone Sodium Succinate 40 mg/Syringe 0.64 ml @ 1.5 mls/min BID IV 10/14/17 21:00 11/13/17 20:59 10/15/17 09:16 1.5 MLS/MIN Ipratropium [place] (Atrovent Hfa Inhaler) 4 puffs Q4R INH 10/14/17 20:00 11/13/17 19:59 10/15/17 07:39 4 PUFFS Albuterol (Ventolin Hfa Inhaler) 4 puffs Q4R INH 10/14/17 20:00 11/13/17 19:59 10/15/17 07:39 4 PUFFS Gadobutrol (Gadavist) 6.5 mmol UD PRN IV 10/15/17 02:20 10/19/17 02:19 Description This is a 21 electrode EEG with a single channel dedicated to limited EKG. The electrodes were placed in accordance with the International 10-20 system. At the start of this recording the patient was unresponsive. Background was poorly organized with no anterior to posterior gradient. Background was composed of symmetric moderate amplitude predominantly 5-6 Hz theta frequencies with intermittent 3-4 Hz of delta slowing. Hyperventilation was not done due to mechanical ventilation. Photic stimulation at various frequencies did not produce any abnormalities. There was no state changes or sleep transients. Interpretation This is an abnormal routine EEG secondary to moderate background disorganization and slowing. There was no electrographic seizures or epileptiform discharges. Clinical Correlation This EEG indicates a moderate encephalopathy of nonspecific etiology. Compared to previous EEG read by myself on the , encephalopathy has improved from severe to moderate.
[2017-10-15] MEDS ORDERED: MIDAZOLAM HCL 1 MG/ML 2ML VIAL IV PRN (12:30)
[2017-10-15] MEDS: METOPROLOL TARTRATE 1 MG/ML VIAL IV PRN ×2 (12:34→17:35)
[2017-10-15] MEDS: POLYETHYLENE (MIRALAX) 17 GM PACK PO SCH (13:25)
[2017-10-15] MEDS: FENTANYL CITRATE INJ 50 MCG/1 ML 2 ML VIAL IV PRN (16:07)
--- NOTE | 2017-10-15 16:34 | Progress Note ---
Internal Med Progress Note Date of Service: Oct 15, 2017. Provider Documentation: SUBJECTIVE: was extubated and re intubated as patient was unresponsive not responding to verbal or painful stimuli afebrile OBJECTIVE: Vital Signs-as noted below Exam: General-s/p intubation and sedation Neck-no neck masses seen Lungs-cta b/l no wheezing or crackles heard Heart-s1 and s2 heard regular rate and rhythm no murmurs Abdomen-soft bowel sounds present non tender no distension Extremities-no erythema Neuro-s/p intubation and sedation no response to painful stimuli Lab data as noted below. ASSESSMENT & PLAN: Patient is a 62 year old male presented secondary to respiratory distress and subsequently cardiopulmonary arrest Cardiopulmonary Arrest likely from Acute Hypoxic-Hypercapneic Respiratory Failure Possible Asthma/COPD Exacerbation from Influenza Influenza A Pcr on iv steroids and Tamflu positive cultures no growth so far appreciate critical care and cardiology inputs Vent Dependent respiratory failure secondary to above vent management and weaning as per critical care. Encephalopathy unresponsive brain injury from hypoxia? continue to monitor and supportive care Elevated Lactic Acid will monitor levels Medical Records needs to obtain medical records re: past medical history and medications moreira the friend Linsey to obtain more information re: medical history , PCP, medications but was not able to contact him Cousin is Fatemeh Del Rosario (ph: [phone]). plan for family meeting in couple of days DVT ppx Lovenox Disposition apparently patient lives in a trailer by himself to be determined Vital Signs: Date Time Temp Pulse Resp B/P (MAP) Pulse Ox O2 Delivery O2 Flow Rate FiO2 10/15/17 14:25 50 10/15/17 14:00 62 18 173/99 (123) 95 CPAP 40 Mechanical Ventilator 10/15/17 12:34 86 195/113 10/15/17 12:00 40 10/15/17 12:00 88 18 195/113 (140) 97 CPAP 40 Mechanical Ventilator 10/15/17 12:00 CPAP 40 Mechanical Ventilator 10/15/17 11:51 50 10/15/17 11:49 50 10/15/17 10:26 72 18 167/106 (126) 96 Mechanical Ventilator 40 10/15/17 08:00 37.1 65 18 163/79 (107) 97 Mechanical Ventilator 40 10/15/17 08:00 50 10/15/17 08:00 Mechanical Ventilator 40 10/15/17 07:39 50 10/15/17 06:01 37.1 65 14 111/65 (80) 95 Mechanical Ventilator 40 10/15/17 05:30 50 10/15/17 05:01 37.3 69 15 103/66 (78) 97 Mechanical Ventilator 50 10/15/17 04:01 37.7 74 16 110/71 (84) 97 Mechanical Ventilator 50 10/15/17 04:00 50 10/15/17 04:00 Mechanical Ventilator 50 10/15/17 03:59 37.7 75 16 111/75 (87) 100 Mechanical Ventilator 50 10/15/17 03:08 37.8 87 18 170/112 (131) 100 Mechanical Ventilator 50 10/15/17 03:00 50 10/15/17 01:01 37.8 70 16 102/65 (77) 96 Mechanical Ventilator 50 10/15/17 00:01 50 10/15/17 00:01 Mechanical Ventilator 50 10/15/17 00:01 37.9 73 17 119/71 (87) 97 Mechanical Ventilator 50 10/14/17 23:01 37.9 73 14 109/68 (82) 98 Mechanical Ventilator 50 10/14/17 23:00 50 10/14/17 22:01 37.9 77 13 126/80 (95) 95 Mechanical Ventilator 50 10/14/17 21:01 37.9 74 14 117/66 (83) 98 Mechanical Ventilator 50 10/14/17 20:53 50 10/14/17 20:01 37.5 74 14 112/66 (81) 98 Mechanical Ventilator 50 10/14/17 20:00 Mechanical Ventilator 50 10/14/17 20:00 50 10/14/17 19:01 80 14 127/82 (97) 100 Mechanical Ventilator 50 10/14/17 18:30 50 Lab Results: Results Past 24 Hours Test 10/15/17 05:29 10/15/17 05:56 10/15/17 06:34 Range/Units White Blood Count 9.48 4.8-10.8 K/uL Red Blood Count 4.26 4.7-6.1 M/uL Hemoglobin 12.9 14.0-18.0 g/dL Hematocrit 40.6 42-52 % Mean Corpuscular Volume 95.3 80-100 fL Mean Corpuscular Hemoglobin 30.3 25-34 pg Mean Corpuscular Hemoglobin Concent 31.8 32-36 g/dl Platelet Count 173 130-400 K/uL Mean Platelet Volume 10.2 7.4-10.4 fL Neutrophils (%) (Auto) 82.3 % Lymphocytes (%) (Auto) 8.2 % Monocytes (%) (Auto) 9.4 % Eosinophils (%) (Auto) 0.0 % Basophils (%) (Auto) 0.0 % Neutrophils # (Auto) 7.80 1.4-6.5 K/uL Lymphocytes # (Auto) 0.78 1.2-3.4 K/uL Monocytes # (Auto) 0.89 0.11-0.59 K/uL Eosinophils # (Auto) 0.00 0-0.5 K/uL Basophils # (Auto) 0.00 0-0.2 K/uL RDW Standard Deviation 48.4 36.4-46.3 fL RDW Coefficient of Variation 13.9 11.5-14.5 % Immature Granulocyte % (Auto) 0.1 % Immature Granulocyte # (Auto) 0.01 0.00-0.02 K/uL Sodium Level 140 136-145 mmol/L Potassium Level 4.4 3.5-5.1 mmol/L Chloride Level 103 98-107 mmol/L Carbon Dioxide Level 35 21-32 mmol/L Anion Gap 3.0 3-11 mmol/L Blood Urea Nitrogen 24 7-18 mg/dl Creatinine 0.68 0.60-1.40 mg/dl Est Creatinine Clear Calc Drug Dose 108.7 ml/min Estimated GFR () 118.6 Estimated GFR (Non- 102.4 BUN/Creatinine Ratio 35.8 10-20 Random Glucose 169 70-99 mg/dl Calcium Level 8.0 8.5-10.1 mg/dl Phosphorus Level 2.6 2.5-4.9 mg/dl Magnesium Level 2.4 1.8-2.4 mg/dl Blood Gas Sample Site R Radial Bedside Blood Gas pH (LAB) 7.40 7.35-7.45 Bedside Blood Gas pCO2 (LAB) 57 35-46 mmHg Bedside Blood Gas pO2 (LAB) 75 80-95 mmHg Bedside Blood Gas HCO3 (LAB) 35 19-24 meq/L Bedside Blood Gas Total CO2 37 24-31 mEq/l Bedside Blood Gas Base Excess (LAB) 10.0 -9-1.8 meq/L Bedside Blood Gas O2 Saturation 94.0 90-95 % Maximino Test Pass Oxygen Delivery Device Ventilator Bedside Oxygen Rate (breaths/min) 14 Blood Gas Minute Ventilation 7.4 Bedside FiO2 40 % Blood Gas Tidal Volume 500 Blood Gas PEEP 6 Bedside Glucose 165 70-99 mg/dl
--- NOTE | 2017-10-15 16:48 | PROGRESS NOTE ---
DATE: 10/15/2017 DATE OF CONSULTATION: 10/15/2017 HISTORY OF PRESENT ILLNESS: Liborio is a 62-year-old man who was admitted with acute hypoxic hypercapnic respiratory failure syndrome, possibly due to COPD exacerbation from influenza. I refer the reader to the multiple progress notes from the ICU physicians and the medical service. He is now ventilation dependent, is not responsive, had EEGs about a day or two ago which were severely abnormal but showed no epileptiform features and repeat tracing today is improved but still shows a moderately severe generalized nonlateralizing encephalopathy without any epileptiform discharges. He really does not have a significant past medical history that is available. He lives alone, has friends and has remote relatives, but at this time very little could be gleaned about any past history and I am consulted because of his mental status, which has not improved significantly, according to what I can glean from the notes. Currently, he is sitting up in bed. He is on ventilator. He is not triggering it himself. His eye movements are roving. He does not seem to respond to visual threat. Pupils are mid zone, weakly reactive. He does have what appears to be a blink reflex. I think I can get some facial grimacing with deep pressure to the retromandibular region. I can get no spontaneous movements on deep pinching of the nailbeds, but I do get some reflexive withdrawal of the lower extremities, more on the right to very noxious stimulation of the feet. Reflexes are hypoactive. Toes are indeterminate. There is no clear Ronald's signs and of course sensory examination and strength testing is impossible. At this point, we have a man who has had a post-hypoxic encephalopathy with respiratory arrest who has a moderately severe generalized encephalopathy and who has not made a lot of clinical progress over the last several days, although he has an improved EEG. I will make no further recommendations at this point. I will continue to check with him, but the prognosis at this time does not appear to be very favorable. I suspect we may at most get into a persistent vegetative state. Again, more time will tell there is undoubtedly some cerebral edema still operating here and this might clear. The fact that the EEG is improved is encouraging, but I am not sure how much more progress can be expected in this clinical setting. Again, I will check back tomorrow.
[2017-10-15] MEDS ORDERED: AMLODIPINE BESYLATE 5 MG TAB PO STA (17:48)
[2017-10-16] VITALS (63 sets, daily range): BP systolic 135–188; BP diastolic 82–119; PULSE 65–102; TEMP 37.1–37.8; O2SAT 91–99
[2017-10-16] MEDS: METOPROLOL TARTRATE 1 MG/ML VIAL IV PRN ×3 (00:34→22:20)
[2017-10-16] MEDS: FENTANYL CITRATE INJ 50 MCG/1 ML 2 ML VIAL IV PRN ×5 (02:00→18:26)
[2017-10-16] MEDS: IPRATROPIUM BROMIDE HFA INHALER INH SCH ×6 (02:57→22:50)
[2017-10-16] MEDS: ALBUTEROL HFA 8 GM INHALER INH SCH ×6 (02:57→22:50)
[2017-10-16] MEDS: PEPTAMEN INTENSE VHP 1000ML BAG OG PRN (04:21)
[2017-10-16 06:20] LABS: BASO % 0.1 %; BASO ABS # 0.01 K/uL (0-0.2); COMPLETE YES; HEMATOCRIT 46.9 % (42-52); IG% 0.3 %; LYMPH % 9.1 %; LYMPH ABS # 1.14 K/uL (1.2-3.4); MEAN CELL VOLUME 93.6 fL (80-100); MEAN CORPUSCULAR HEMOGLOBIN 30.9 pg (25-34); MONO % 13.5 %; PLATELET COUNT 202 K/uL (130-400); RED BLOOD COUNT 5.01 M/uL (4.7-6.1); WHITE BLOOD COUNT 12.52 K/uL (4.8-10.8)
[2017-10-16 06:55] LABS: BUN/CREATININE RATIO 47.8 (10-20); CALCIUM 8.7 mg/dl (8.5-10.1); CREATININE 0.57 mg/dl (0.60-1.40); MAGNESIUM 2.3 mg/dl (1.8-2.4); POTASSIUM 3.8 mmol/L (3.5-5.1)
[2017-10-16 06:56] LABS: PHOSPHORUS 2.3 mg/dl (2.5-4.9)
--- NOTE | 2017-10-16 07:04 | DIAGNOSTIC IMAGING REPORT ---
CHEST ONE VIEW PORTABLE CLINICAL HISTORY: Respiratory failure COMPARISON STUDY: 10/13/2017 FINDINGS: The study is rotated. The endotracheal tube is approximately 4 cm above the madelin. There is a nasogastric tube which passes in the stomach. The heart is normal in size. There is aortic tortuosity. There is no focal pulmonary consolidation. No pleural effusions are visualized.[ IMPRESSION: Stable findings. No evidence of focal pulmonary consolidation Electronically signed by: Sander Ricketts M.D. 10/16/2017 7:03 AM Dictated Date/Time: 10/16/2017 7:02 AM
[2017-10-16] MEDS: POLYETHYLENE (MIRALAX) 17 GM PACK PO SCH (07:34)
[2017-10-16] MEDS: ASPIRIN 81 MG CHEW PO SCH (07:34)
[2017-10-16] MEDS: AMLODIPINE BESYLATE 5 MG TAB PO SCH (07:35)
[2017-10-16] MEDS: OSELTAMIVIR PHOSPHATE SUSP 75 MG/12.5 ML UDP NG SCH ×2 (07:35→20:47)
[2017-10-16] MEDS: ENOXAPARIN 40 MG/0.4 ML SYR SQ SCH (07:36)
[2017-10-16] MEDS: METHYLPREDNISOLONE IV 40 MG in SYRINGE 0 ML IV SCH (09:22)
[2017-10-16] MEDS: PANTOprazole INJ 40 MG in SYRINGE 0 ML IV SCH (09:22)
--- NOTE | 2017-10-16 11:01 | Procedure Note ---
Procedure Note Date of Service Oct 14, 2017. Procedure Note Procedure Date: 10/14/2017 Procedure: Endotracheal intubation Pre-procedure Diagnosis: Respiratory failure Post-procedure Diagnosis: same as above Prior to Procedure: Informed Consent: emergent Attending Staff: Morena Uriarte DO Indications: Patient is a 62-year-old male who has a past medical history of COPD, hypoxic respiratory failure leading to asystolic cardiac arrest. Recent extubation and subsequent respiratory failure requiring repeat intubation. The identity of the patient was confirmed and a bedside time out was performed. Description of Procedure: Patient was evaluated and required intubation for impending respiratory failure. The patient was prepared in the usual fashion. A Mac 3 laryngoscope was used. A 8.0 Fr endotrachial tube was placed endotracheally to 22 cm at the teeth. A grade 1 view was obtained. The endotracheal tube was noted to pass through the vocal cords. Chest rise was bilateral. Bilateral breath sounds were heard without air sounds in the abdomen. Mist was noted in the endotracheal tube. End-tidal CO2 measurement was positive. Chest x-ray shows proper endotracheal tube placement. Complications: None Findings: not applicable Specimens: not applicable Estimated blood loss: Zero
--- NOTE | 2017-10-16 11:16 | Critical Care Progress Note ---
Critical Care Progress Note Date of Service Oct 16, 2017. ICU Day ICU Day Number: [address] Uriarte Subjective No acute events overnight, Norvasc was started for further BP control. Objective GENERAL: sedated, no distress EYE EXAM: PERRL and EOM's grossly intact OROPHARYNX: no exudate, no erythema, lips, buccal mucosa, and tongue normal, s/ p intubation NECK: supple, no adenopathy, LUNGS: Clear to auscultation. HEART: no murmurs, S1 normal and S2 normal ABDOMEN: abdomen soft, non-tender, normo-active bowel sounds, no masses, LOWER EXTREMITIES: No pitting edema. 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 CT head dated 10/13: Result: No acute intracranial abnormality MRA: No significant stenosis, occlusion, or aneurysm within the pilot station of [place]. MRI: No acute intracranial findings. No evidence of acute or subacute infarction. No evidence for intracranial mass. Repeat EEG Respiratory: COPD exacerbation in setting of Influenza COPD exacerbation: Reduce Solumedrol to 20 mg BID,Stop Solumedrol tmr Albuterol neb Chest X-ray(10/15/17): Reviewed: clear lungs, ET Tube 4 cm from madelin Respiratory prophylaxis: Albuterol Cardiovascular: Cardiac Arrest s/p ROSC CV drips: Remains off vasoactive medications Rhythm: Sinus ECHO: Echo dated 10/13 :Technically Limited study due to poor acoustic windows with patient on vent Bedside KATIE (10/13/17): no evidence of pericardial effusion and grossly normal biventricular function,normal biventricular systolic function, No significant valvular regurgitation Fluids/Renal: IV Fluids: Fluids from intravenous medications Banda: Present GI/Nutrition: Feeding: restarted Peptamen at goal of 40 cc/hr Prophylaxis: On Protonix drip Bowel movements:1 , Senokot, Dulcolax Miralax on board Repeat LFTs in AM Endocrine: Last 24 hour glucose: Ranging 140's to 170's TSH wnl Hematology: Hemoglobin 15, Mild Leukocytosis like steroid induced DVT prophylaxis: Lovenox Infectious Disease/Immunology: Influenza Tmax: 37.5 Procalcitonin: negative Antimicrobials: none Influenza A swab positive Continue Tamiflu 3/5 days Cultures: Blood: NGTD Urine: NGTD MRSA: Negative Resident Physician Supervision Note: Dr. Moon was resident physician during care of patient. I separately evaluated patient and did history and exam. I discussed the case with the resident and generally agree with the findings and plan. Patient is still not had significant improvement in mental status, in fact I don 't believe he is any improvement in the last 24 hours. He is not received sedative medication. I have added additional antihypertensives. Tomorrow anticipate discussion with additional family with regards to elucidating his true goals of care. Again if we want to continue current treatment I would advocate for surgical feeding tube and placement in a long-term care facility unless it is felt the patient would not want additional artificial hydration and nutrition in the setting of severe encephalopathy. The patient has a dense encephalopathy I do not feel it appropriate to extubate the patient at this time. I have personally spent 35 minutes of critical care time in the direct management of this patient. This is a life/limb threatening event. This includes time spent evaluating patient, direct bedside care, chart review, placing orders, interpretation of diagnostic studies, discussion with consultants, patient, and family members, as well as other required patient management activities. This time is exclusive of all separately billable procedures, and teaching time and separate from and in addition to any other critical care service time. Documented By: Warren Uriarte DO Consults & Procedures Consultants: Cardiology Procedures: Brain MRA HISTORY: Loss of consciousness s/p cardiac arrest TECHNIQUE: 3-D [id number] MRA of the brain was performed without contrast. COMPARISON STUDY: None. FINDINGS: Visualized intracranial internal carotid arteries, distal vertebral arteries, and basilar artery are widely patent. There is no significant stenosis, occlusion, or aneurysm seen within the bilateral ACAs, MCAs, or law office assistant. IMPRESSION: No significant stenosis, occlusion, or aneurysm within the pilot station of [place]. ] MRI OF THE BRAIN WITHOUT AND WITH IV CONTRAST CLINICAL HISTORY: encephalopathy HISTORY OF CARDIAC ARREST. COMPARISON STUDY: Noncontrast head CT dated 10/13/2017 TECHNIQUE: MRI of the brain was performed from the vertex to the skull base utilizing various T1 and T2 weighted sequences. Following the IV administration of 6 mL of Gadavist contrast, additional enhanced images were obtained. FINDINGS: Sagittal T1, axial diffusion, proton density and T2 weighted axial, coronal FLAIR, and pre and post axial T1-weighted images were acquired. These were supplemented with post gadolinium coronal T1 weighted images. No intra or extra-axial mass lesions are visualized. Axial diffusion-weighted images reveal no evidence of acute or subacute infarction. There is no evidence of ventricular dilatation. Proton density T2-weighted and FLAIR images reveal scattered foci of increased T2 signal within the white matter, likely on a small vessel basis. There are no abnormal flow voids. There is no evidence of pathologic enhancement. There is fluid within the posterior nasopharynx. There are maxillary sinus retention cysts. IMPRESSION: 1. Examination compromised secondary to patient motion 2. No acute intracranial findings. No evidence of acute or subacute infarction. No evidence for intracranial mass. ] CHEST ONE VIEW PORTABLE CLINICAL HISTORY: Intubated RESPIRATORY FAILURE COMPARISON STUDY: N 2117 FINDINGS: The cardiac and mediastinal contours are normal. There is a nasogastric tube which passes into the stomach. There is an endotracheal tube 4 cm above the madelin. There is no failure. There is no focal pulmonary consolidation.[ No pleural effusions are visualized. IMPRESSION: Endotracheal tube 4 cm above the madelin. Nasogastric tube passing into the stomach. No evidence of focal pulmonary consolidation. -no evidence of pericardial effusion and grossly normal biventricular function. -normal biventricular systolic function -No significant valvular regurgitation was noted with aortic valve, tricuspid valve, mitral valve. -The aortic valve was tricuspid in morphology with normal excursion and no . Data Medications: Current Inpatient Medications Medications (Trade) Dose Ordered Sig/Brook Route Start Time Stop Time Status Last Admin Dose Admin Enoxaparin Sodium (Lovenox Inj) 40 mg Q24H SQ 10/13/17 08:00 11/12/17 07:59 10/16/17 07:36 40 MG Artificial Tears (Lacri-Lube Oph Oint) 1 appln Q2H PRN OPB 10/13/17 05:30 11/12/17 05:29 Pantoprazole Sodium 40 mg/ Syringe 10 ml @ 5 mls/min DAILY@11 IV 10/13/17 11:00 11/12/17 10:59 10/16/17 09:22 5 MLS/MIN Oseltamivir Phosphate (Tamiflu Susp) 75 mg BID NG 10/13/17 11:00 10/18/17 10:59 10/16/17 07:35 75 MG Aspirin (Aspirin Chew) 81 mg QAM PO 10/13/17 13:00 11/12/17 12:59 10/16/17 07:34 81 MG Enteral Nutritional Formula (Peptamen Intense VHP) 1,000 ml UD PRN OG 10/13/17 13:30 11/12/17 13:29 10/16/17 04:21 1,000 ML Senna (Senokot Tab) 8.6 mg QAM PRN PO 10/14/17 10:45 11/13/17 10:44 Ipratropium Rudd (Atrovent Hfa Inhaler) 4 puffs Q4R INH 10/14/17 20:00 11/13/17 19:59 10/16/17 07:40 4 PUFFS Albuterol (Ventolin Hfa Inhaler) 4 puffs Q4R INH 10/14/17 20:00 11/13/17 19:59 10/16/17 07:40 4 PUFFS Gadobutrol (Gadavist) 6.5 mmol UD PRN IV 10/15/17 02:20 10/19/17 02:19 Metoprolol Tartrate (Lopressor Iv) 5 mg Q6 PRN IV 10/15/17 12:30 11/14/17 12:29 10/16/17 00:34 5 MG Midazolam HCl (Versed Inj) 2 mg Q2H PRN IV 10/15/17 12:30 11/14/17 12:29 Fentanyl Citrate (Fentanyl Inj) 50 mcg Q2H PRN IV 10/15/17 12:30 10/29/17 12:29 10/16/17 07:36 50 MCG Polyethylene (Miralax Powder Packet) 17 gm QAM PO 10/15/17 12:30 11/14/17 12:29 10/16/17 07:34 17 GM Amlodipine Besylate (Norvasc Tab) 10 mg QAM PO 10/16/17 09:00 11/15/17 08:59 10/16/17 07:35 10 MG Metoprolol Tartrate (Lopressor Tab) 50 mg BID PO 10/16/17 21:00 11/15/17 20:59 Methylprednisolone Sodium Succinate 20 mg/Syringe 0.32 ml @ 1.5 mls/min Q12@0900,2100 IV 10/17/17 09:00 10/17/17 21:01 Vital Signs: Date Time Temp Pulse Resp B/P (MAP) Pulse Ox O2 Delivery O2 Flow Rate FiO2 10/16/17 10:19 37.3 75 18 162/100 (120) 93 CPAP 40 Mechanical Ventilator 10/16/17 08:00 37.3 98 22 157/107 (124) 95 CPAP 40 Mechanical Ventilator 10/16/17 08:00 40 10/16/17 08:00 CPAP 40 Mechanical Ventilator 10/16/17 07:40 40 10/16/17 06:01 37.2 81 18 146/87 (100) 94 10/16/17 05:39 40 10/16/17 05:31 37.3 90 21 159/105 (123) 97 10/16/17 05:01 37.3 83 18 168/99 (113) 97 10/16/17 04:31 37.3 78 17 160/85 (111) 96 10/16/17 04:01 37.4 76 18 171/105 (126) 95 10/16/17 04:00 40 10/16/17 04:00 CPAP Mechanical Ventilator 10/16/17 03:31 37.4 83 15 160/97 (117) 97 10/16/17 03:01 37.3 81 15 166/86 (90) 99 10/16/17 02:57 40 10/16/17 02:31 37.3 80 17 162/96 (118) 96 10/16/17 02:09 37.2 69 13 148/90 (109) 92 10/16/17 02:01 37.2 88 21 170/106 (127) 96 10/16/17 02:00 37.2 65 18 94 10/16/17 01:46 37.2 90 21 178/107 (130) 96 10/16/17 01:01 37.3 82 22 179/110 (133) 95 10/16/17 00:34 93 193/116 10/16/17 00:23 37.3 75 19 183/98 (126) 93 10/16/17 00:00 40 10/16/17 00:00 37.4 102 23 10/16/17 00:00 CPAP Mechanical Ventilator 10/15/17 23:30 40 10/15/17 22:01 37.3 91 16 185/104 (129) 96 10/15/17 22:00 37.3 93 20 95 10/15/17 21:31 37.0 86 16 165/106 (128) 93 10/15/17 21:31 37.1 88 22 165/96 (119) 97 Mechanical Ventilator 40 10/15/17 21:30 37.0 87 21 93 10/15/17 21:01 37.0 85 19 165/95 (113) 93 10/15/17 21:00 37.0 87 20 93 10/15/17 20:31 37.0 98 14 169/113 (126) 96 10/15/17 20:30 37.0 90 20 95 10/15/17 20:28 40 10/15/17 20:01 37.0 82 22 190/103 (137) 94 10/15/17 20:00 37.0 82 24 95 10/15/17 19:40 37.5 83 22 173/112 (132) 97 Mechanical Ventilator 40 10/15/17 19:38 40 10/15/17 19:38 CPAP 40 Mechanical Ventilator 10/15/17 19:31 37.0 83 17 173/112 (131) 96 10/15/17 19:30 37.0 84 22 96 10/15/17 19:01 36.9 75 21 170/92 (127) 96 10/15/17 19:00 36.9 72 19 96 10/15/17 18:31 37.0 84 21 163/102 (126) 95 10/15/17 18:30 37.1 88 21 96 10/15/17 18:27 37.1 93 21 222/127 (164) 96 10/15/17 18:00 37.5 68 21 178/106 (130) 97 Mechanical Ventilator 40 10/15/17 18:00 37.2 86 21 96 10/15/17 17:35 90 192/105 10/15/17 17:31 37.2 86 20 192/105 (130) 94 10/15/17 17:30 37.2 84 19 94 10/15/17 17:01 37.2 77 18 178/105 (139) 95 10/15/17 17:00 37.2 78 15 94 10/15/17 16:31 37.2 66 15 148/85 (105) 94 10/15/17 16:30 37.2 63 14 93 10/15/17 16:25 37.2 64 13 155/83 (113) 93 10/15/17 16:01 37.3 74 19 194/104 (133) 97 10/15/17 16:00 37.3 78 19 96 10/15/17 15:45 CPAP 4.0 50 Mechanical Ventilator 10/15/17 15:45 40 10/15/17 15:45 37.5 75 18 166/85 (112) 97 Mechanical Ventilator 40 10/15/17 15:30 37.3 78 19 98 10/15/17 14:25 50 10/15/17 14:00 62 18 173/99 (123) 95 CPAP 40 Mechanical Ventilator 10/15/17 12:34 86 195/113 10/15/17 12:00 40 10/15/17 12:00 88 18 195/113 (140) 97 CPAP 40 Mechanical Ventilator 10/15/17 12:00 CPAP 40 Mechanical Ventilator 10/15/17 11:51 50 10/15/17 11:49 50 Laboratory Results: Last 24 Hours Test 10/16/17 06:08 White Blood Count 12.52 K/uL Red Blood Count 5.01 M/uL Hemoglobin 15.5 g/dL Hematocrit 46.9 % Mean Corpuscular Volume 93.6 fL Mean Corpuscular Hemoglobin 30.9 pg Mean Corpuscular Hemoglobin Concent 33.0 g/dl Platelet Count 202 K/uL Mean Platelet Volume 10.0 fL Neutrophils (%) (Auto) 77.0 % Lymphocytes (%) (Auto) 9.1 % Monocytes (%) (Auto) 13.5 % Eosinophils (%) (Auto) 0.0 % Basophils (%) (Auto) 0.1 % Neutrophils # (Auto) 9.64 K/uL Lymphocytes # (Auto) 1.14 K/uL Monocytes # (Auto) 1.69 K/uL Eosinophils # (Auto) 0.00 K/uL Basophils # (Auto) 0.01 K/uL RDW Standard Deviation 47.3 fL RDW Coefficient of Variation 13.7 % Immature Granulocyte % (Auto) 0.3 % Immature Granulocyte # (Auto) 0.04 K/uL Sodium Level 138 mmol/L Potassium Level 3.8 mmol/L Chloride Level 100 mmol/L Carbon Dioxide Level 31 mmol/L Anion Gap 7.0 mmol/L Blood Urea Nitrogen 27 mg/dl Creatinine 0.57 mg/dl Est Creatinine Clear Calc Drug Dose 118.6 ml/min Estimated GFR () 127.6 Estimated GFR (Non- 110.1 BUN/Creatinine Ratio 47.8 Random Glucose 173 mg/dl Lactic Acid Level 1.3 mmol/L Calcium Level 8.7 mg/dl Phosphorus Level 2.3 mg/dl Magnesium Level 2.3 mg/dl Resident Tracking Resident Involvement: Resident Care Provided Care Provided: Adult [facility] Medicine
--- NOTE | 2017-10-16 12:21 | PROGRESS NOTE ---
DATE: 10/16/2017 SUBJECTIVE: Liborio looks pretty much the same. I can get some facial grimacing again with pressure deep in the retromandibular areas and he still has a blink reflex. Pupils remain mid position and poorly reactive. Eye movements are roving. He does not have visual threat response. I can get no volitional movements of the extremities other than perhaps a little posturing on the right arm with again deep pressure pain to the nailbeds and there is some slight withdrawal of the left leg more than the right leg to noxious stimuli. The patient continues to be ventilator dependent. With each passing day, the lack of progress is an argument against a reasonable prognosis for recovery. At this point, I unfortunately do not think we have any choice but to support him. If this continues and we cannot get a decision about whether to continue life support or terminate it he is going to need a tracheostomy and a PEG tube. We will see how things amaro out if we can find some family members to discuss the options with at this point. I will check with him again tomorrow. KALPANA
--- NOTE | 2017-10-16 12:51 | DIAGNOSTIC IMAGING REPORT ---
CHEST ONE VIEW PORTABLE CLINICAL HISTORY: Orogastric tube placement. Respiratory failure. COMPARISON STUDY: 10/16/2017 FINDINGS: There is an endotracheal tube 39 mm above the madelin. There is enteric tube which passes into the stomach. The tip is not visualized. The heart is normal in size. There is aortic tortuosity. There is no failure. There is no focal pulmonary consolidation.[ IMPRESSION: Stable findings. No evidence of focal pulmonary consolidation. The enteric tube passes into the stomach. The tip is not included on this chest x-ray. Electronically signed by: Sander Ricketts M.D. 10/16/2017 12:50 PM Dictated Date/Time: 10/16/2017 12:48 PM
--- NOTE | 2017-10-16 15:53 | Progress Note ---
Internal Med Progress Note Date of Service: Oct 16, 2017. Provider Documentation: SUBJECTIVE: still intubated some movement of legs on painful stimuli afebrile Vital Signs-as noted below Exam: General-s/p intubation and sedation Neck-no neck masses seen Lungs-cta b/l no wheezing or crackles heard Heart-s1 and s2 heard regular rate and rhythm no murmurs Abdomen-soft bowel sounds present non tender no distension Extremities-no erythema Neuro-s/p intubation and sedation no response to painful stimuli Lab data as noted below. ASSESSMENT & PLAN: Patient is a 62 year old male presented secondary to respiratory distress and subsequently cardiopulmonary arrest Cardiopulmonary Arrest likely from Acute Hypoxic-Hypercapneic Respiratory Failure Possible Asthma/COPD Exacerbation from Influenza Influenza A Pcr on iv steroids and Tamflu positive cultures no growth so far appreciate critical care and cardiology inputs to continue same Vent Dependent respiratory failure secondary to above vent management and weaning as per critical care. Encephalopathy unresponsive brain injury from hypoxia? continue to monitor and supportive care possible family meeting tomorrow to decide plan of care Elevated Lactic Acid will monitor levels Medical Records needs to obtain medical records re: past medical history and medications moreira the friend Linsey to obtain more information re: medical history , PCP, medications but was not able to contact him Cousin is Fatemeh Del Rosario (ph: [phone]). plan for family meeting in couple of days DVT ppx Lovenox Disposition apparently patient lives in a trailer by himself to be determined Vital Signs: Date Time Temp Pulse Resp B/P (MAP) Pulse Ox O2 Delivery O2 Flow Rate FiO2 10/16/17 14:31 40 10/16/17 14:13 37.3 74 19 159/97 (117) 95 CPAP 40 Mechanical Ventilator 10/16/17 14:08 165 159/97 10/16/17 12:00 40 10/16/17 12:00 CPAP 40 Mechanical Ventilator 10/16/17 12:00 37.1 84 17 170/106 (127) 97 CPAP 40 Mechanical Ventilator 10/16/17 11:47 40 10/16/17 10:19 37.3 75 18 162/100 (120) 93 CPAP 40 Mechanical Ventilator 10/16/17 08:00 37.3 98 22 157/107 (124) 95 CPAP 40 Mechanical Ventilator 10/16/17 08:00 40 10/16/17 08:00 CPAP 40 Mechanical Ventilator 10/16/17 07:40 40 10/16/17 06:01 37.2 81 18 146/87 (100) 94 10/16/17 05:39 40 10/16/17 05:31 37.3 90 21 159/105 (123) 97 10/16/17 05:01 37.3 83 18 168/99 (113) 97 10/16/17 04:31 37.3 78 17 160/85 (111) 96 10/16/17 04:01 37.4 76 18 171/105 (126) 95 10/16/17 04:00 40 10/16/17 04:00 CPAP Mechanical Ventilator 10/16/17 03:31 37.4 83 15 160/97 (117) 97 10/16/17 03:01 37.3 81 15 166/86 (90) 99 10/16/17 02:57 40 10/16/17 02:31 37.3 80 17 162/96 (118) 96 10/16/17 02:09 37.2 69 13 148/90 (109) 92 10/16/17 02:01 37.2 88 21 170/106 (127) 96 10/16/17 02:00 37.2 65 18 94 10/16/17 01:46 37.2 90 21 178/107 (130) 96 10/16/17 01:01 37.3 82 22 179/110 (133) 95 10/16/17 00:34 93 193/116 10/16/17 00:23 37.3 75 19 183/98 (126) 93 10/16/17 00:00 40 10/16/17 00:00 37.4 102 23 10/16/17 00:00 CPAP Mechanical Ventilator 10/15/17 23:30 40 10/15/17 22:01 37.3 91 16 185/104 (129) 96 10/15/17 22:00 37.3 93 20 95 10/15/17 21:31 37.0 86 16 165/106 (128) 93 10/15/17 21:31 37.1 88 22 165/96 (119) 97 Mechanical Ventilator 40 10/15/17 21:30 37.0 87 21 93 10/15/17 21:01 37.0 85 19 165/95 (113) 93 10/15/17 21:00 37.0 87 20 93 11/22/17 20:31 37.0 98 14 169/113 (126) 96 10/15/17 20:30 37.0 90 20 95 10/15/17 20:28 40 10/15/17 20:01 37.0 82 22 190/103 (137) 94 10/15/17 20:00 37.0 82 24 95 10/15/17 19:40 37.5 83 22 173/112 (132) 97 Mechanical Ventilator 40 10/15/17 19:38 40 10/15/17 19:38 CPAP 40 Mechanical Ventilator 10/15/17 19:31 37.0 83 17 173/112 (131) 96 10/15/17 19:30 37.0 84 22 96 10/15/17 19:01 36.9 75 21 170/92 (127) 96 10/15/17 19:00 36.9 72 19 96 10/15/17 18:31 37.0 84 21 163/102 (126) 95 10/15/17 18:30 37.1 88 21 96 10/15/17 18:27 37.1 93 21 222/127 (164) 96 10/15/17 18:00 37.5 68 21 178/106 (130) 97 Mechanical Ventilator 40 10/15/17 18:00 37.2 86 21 96 10/15/17 17:35 90 192/105 10/15/17 17:31 37.2 86 20 192/105 (130) 94 10/15/17 17:30 37.2 84 19 94 10/15/17 17:01 37.2 77 18 178/105 (139) 95 10/15/17 17:00 37.2 78 15 94 10/15/17 16:31 37.2 66 15 148/85 (105) 94 10/15/17 16:30 37.2 63 14 93 10/15/17 16:25 37.2 64 13 155/83 (113) 93 10/15/17 16:01 37.3 74 19 194/104 (133) 97 10/15/17 16:00 37.3 78 19 96 Lab Results: Results Past 24 Hours Test 10/16/17 06:08 Range/Units White Blood Count 12.52 4.8-10.8 K/uL Red Blood Count 5.01 4.7-6.1 M/uL Hemoglobin 15.5 14.0-18.0 g/dL Hematocrit 46.9 42-52 % Mean Corpuscular Volume 93.6 80-100 fL Mean Corpuscular Hemoglobin 30.9 25-34 pg Mean Corpuscular Hemoglobin Concent 33.0 32-36 g/dl Platelet Count 202 130-400 K/uL Mean Platelet Volume 10.0 7.4-10.4 fL Neutrophils (%) (Auto) 77.0 % Lymphocytes (%) (Auto) 9.1 % Monocytes (%) (Auto) 13.5 % Eosinophils (%) (Auto) 0.0 % Basophils (%) (Auto) 0.1 % Neutrophils # (Auto) 9.64 1.4-6.5 K/uL Lymphocytes # (Auto) 1.14 1.2-3.4 K/uL Monocytes # (Auto) 1.69 0.11-0.59 K/uL Eosinophils # (Auto) 0.00 0-0.5 K/uL Basophils # (Auto) 0.01 0-0.2 K/uL RDW Standard Deviation 47.3 36.4-46.3 fL RDW Coefficient of Variation 13.7 11.5-14.5 % Immature Granulocyte % (Auto) 0.3 % Immature Granulocyte # (Auto) 0.04 0.00-0.02 K/uL Sodium Level 138 136-145 mmol/L Potassium Level 3.8 3.5-5.1 mmol/L Chloride Level 100 98-107 mmol/L Carbon Dioxide Level 31 21-32 mmol/L Anion Gap 7.0 3-11 mmol/L Blood Urea Nitrogen 27 7-18 mg/dl Creatinine 0.57 0.60-1.40 mg/dl Est Creatinine Clear Calc Drug Dose 118.6 ml/min Estimated GFR () 127.6 Estimated GFR (Non- 110.1 BUN/Creatinine Ratio 47.8 10-20 Random Glucose 173 70-99 mg/dl Lactic Acid Level 1.3 0.4-2.0 mmol/L Calcium Level 8.7 8.5-10.1 mg/dl Phosphorus Level 2.3 2.5-4.9 mg/dl Magnesium Level 2.3 1.8-2.4 mg/dl
[2017-10-16] MEDS ORDERED: METOPROLOL TARTRATE 50 MG TAB PO SCH (21:00)
[2017-10-17] VITALS (65 sets, daily range): BP systolic 133–190; BP diastolic 66–117; PULSE 69–105; TEMP 37.5–38.3; O2SAT 89–98
[2017-10-17] MEDS: FENTANYL CITRATE INJ 50 MCG/1 ML 2 ML VIAL IV PRN ×4 (00:08→20:56)
[2017-10-17] MEDS: ALBUTEROL HFA 8 GM INHALER INH SCH ×5 (03:22→19:43)
[2017-10-17] MEDS: IPRATROPIUM BROMIDE HFA INHALER INH SCH ×5 (03:22→19:43)
[2017-10-17] MEDS: METOPROLOL TARTRATE 1 MG/ML VIAL IV PRN (06:07)
[2017-10-17 06:10] LABS: VEN BLD GAS O2 SATURATION 91.2 %; VEN BLOOD GAS BASE EXCESS 7.5 mEq/L
[2017-10-17 06:12] LABS: BASO % 0.2 %; BASO ABS # 0.02 K/uL (0-0.2); COMPLETE YES; EOS % 0.1 %; HEMATOCRIT 50.1 % (42-52); IG% 0.4 %; LYMPH % 13.8 %; LYMPH ABS # 1.63 K/uL (1.2-3.4); MEAN CELL VOLUME 93.6 fL (80-100); MEAN CORPUSCULAR HEMOGLOBIN 30.8 pg (25-34); MEAN CORPUSCULAR HGB CONC 32.9 g/dl (32-36); MONO % 21.6 %; NEUT % 63.9 %; PLATELET COUNT 227 K/uL (130-400); RED BLOOD COUNT 5.35 M/uL (4.7-6.1); WHITE BLOOD COUNT 11.82 K/uL (4.8-10.8)
[2017-10-17 06:45] LABS: BUN/CREATININE RATIO 65.1 (10-20); CALCIUM 9.3 mg/dl (8.5-10.1); CREATININE 0.6 mg/dl (0.60-1.40); MAGNESIUM 2.4 mg/dl (1.8-2.4)
[2017-10-17 06:48] LABS: PHOSPHORUS 2.7 mg/dl (2.5-4.9)
--- NOTE | 2017-10-17 07:39 | DIAGNOSTIC IMAGING REPORT ---
CHEST ONE VIEW PORTABLE CLINICAL HISTORY: Intubation. Cardiac arrest. COMPARISON STUDY: Chest radiograph October 16, 2017. FINDINGS: The tip of the nasogastric tube is below the lower aspect of this image but at least within the body of the stomach. Tip of endotracheal tube is 3.4 cm above the madelin. There is no evidence of pulmonary edema. Cardiomediastinal silhouette is normal. There is no pneumothorax or pleural effusion. No consolidation is identified. Minimal left basilar opacity favors atelectasis. IMPRESSION: 1. Satisfactory positioning of endotracheal and nasogastric tubes. 2. Mild left basilar opacity which favors atelectasis. No acute cardiopulmonary findings. Electronically signed by: Ramírez Richardson M.D. 10/17/2017 7:38 AM Dictated Date/Time: 10/17/2017 7:36 AM
[2017-10-17] MEDS: POLYETHYLENE (MIRALAX) 17 GM PACK PO SCH (09:00)
[2017-10-17] MEDS: METOPROLOL TARTRATE 50 MG TAB PO SCH ×2 (09:18→20:55)
[2017-10-17] MEDS: AMLODIPINE BESYLATE 5 MG TAB PO SCH (09:18)
[2017-10-17] MEDS: METHYLPREDNISOLONE IV 20 MG in SYRINGE 0 ML IV SCH ×2 (09:18→20:55)
[2017-10-17] MEDS: ASPIRIN 81 MG CHEW PO SCH (09:18)
[2017-10-17] MEDS: OSELTAMIVIR PHOSPHATE SUSP 75 MG/12.5 ML UDP NG SCH ×2 (09:19→20:55)
[2017-10-17] MEDS: ENOXAPARIN 40 MG/0.4 ML SYR SQ SCH (09:19)
[2017-10-17] MEDS: PANTOprazole INJ 40 MG in SYRINGE 0 ML IV SCH (11:22)
--- NOTE | 2017-10-17 11:48 | Critical Care Progress Note ---
Critical Care Progress Note Date of Service Oct 17, 2017. ICU Day ICU Day Number: [address] Uriarte Subjective Febrile overnight, mildly tachycardic in the low 100's , Fio2 was increased to 50% overnight. has been experiecing some regurgitation of tube feeds. rate of feeds lowered. Objective GENERAL: sedated, no distress EYE EXAM: PERRL and EOM's grossly intact OROPHARYNX: s/p intubation NECK: supple, no adenopathy, LUNGS: Clear to auscultation. HEART: no murmurs, S1 normal and S2 normal ABDOMEN: abdomen soft, normo-active bowel sounds, no masses, LOWER EXTREMITIES: No pitting edema. 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 CT head dated 10/13: Result: No acute intracranial abnormality MRA: No significant stenosis, occlusion, or aneurysm within the [place]. MRI: No acute intracranial findings. No evidence of acute or subacute infarction. No evidence for intracranial mass. Repeat EEG: Respiratory: COPD exacerbation in setting of Influenza COPD exacerbation: stable, PRN Albuterol, Solumedrol to today after last 2 doses Chest X-ray(10/15/17): Reviewed: clear lungs, ET Tube 3.4 cm from madelin Respiratory prophylaxis: Albuterol Cardiovascular: Cardiac Arrest s/p ROSC CV drips: Remains off vasoactive medications Rhythm: Sinus ECHO: Echo dated 10/13 :Technically Limited study due to poor acoustic windows with patient on vent Bedside KATIE (10/13/17): no evidence of pericardial effusion and grossly normal biventricular function,normal biventricular systolic function, No significant valvular regurgitation Fluids/Renal: IV Fluids: Fluids from intravenous medications Banda: Present GI/Nutrition: Feeding: Trickle feeds , after some regurgitation of tube feeds Prophylaxis: On Protonix drip Bowel movements:1 , Senokot, Dulcolax Miralax on board Repeat LFTs in AM Endocrine: Last 24 hour glucose: Ranging 160's to 170's TSH wnl Hematology: Hemoglobin 15, Mild Leukocytosis like steroid induced DVT prophylaxis: Lovenox Infectious Disease/Immunology: Influenza Tmax: 37.5 Procalcitonin: negative Antimicrobials: none Influenza A swab positive Continue Tamiflu 4/5 days Cultures: Blood: NGTD Urine: NGTD MRSA: Negative Palliative care on board, Family conference concerning medical decision making will occur tomorrow Resident Physician Supervision Note: Dr. Moon was resident physician during care of patient. I separately evaluated patient and did history and exam. I discussed the case with the resident and generally agree with the findings and plan. Had extensive discussion by telephone conference with the patient's cousin Fatemeh, cousin "Cassie" and family friend Pete. All her breast of the severity of the patient's illness, we have not seen any improvement neurologically. They will be coming tomorrow to see the patient at the bedside. It would be inappropriate to extubate the patient at this time given his inability to protect his airway. It is noted that there is a cuff leak. He is maintaining oxygen saturations and a cuff leak at present is not affecting his ventilatory status. Therefore I will wait to replace or remove the breathing tube upon family's arrival tomorrow I have personally spent 50 minutes of critical care time in the direct management of this patient. This is a life/limb threatening event. This includes time spent evaluating patient, direct bedside care, chart review, placing orders, interpretation of diagnostic studies, discussion with consultants, patient, and family members, as well as other required patient management activities. This time is exclusive of all separately billable procedures, and teaching time and separate from and in addition to any other critical care service time. Documented By: Warren Uriarte DO Consults & Procedures Consultants: Cardiology Procedures: Brain MRA HISTORY: Loss of consciousness s/p cardiac arrest TECHNIQUE: 3-D [id number] MRA of the brain was performed without contrast. COMPARISON STUDY: None. FINDINGS: Visualized intracranial internal carotid arteries, distal vertebral arteries, and basilar artery are widely patent. There is no significant stenosis, occlusion, or aneurysm seen within the bilateral ACAs, MCAs, or process controller. IMPRESSION: No significant stenosis, occlusion, or aneurysm within the [place]. ] MRI OF THE BRAIN WITHOUT AND WITH IV CONTRAST CLINICAL HISTORY: encephalopathy HISTORY OF CARDIAC ARREST. COMPARISON STUDY: Noncontrast head CT dated 10/13/2017 TECHNIQUE: MRI of the brain was performed from the vertex to the skull base utilizing various T1 and T2 weighted sequences. Following the IV administration of 6 mL of Gadavist contrast, additional enhanced images were obtained. FINDINGS: Sagittal T1, axial diffusion, proton density and T2 weighted axial, coronal FLAIR, and pre and post axial T1-weighted images were acquired. These were supplemented with post gadolinium coronal T1 weighted images. No intra or extra-axial mass lesions are visualized. Axial diffusion-weighted images reveal no evidence of acute or subacute infarction. There is no evidence of ventricular dilatation. Proton density T2-weighted and FLAIR images reveal scattered foci of increased T2 signal within the white matter, likely on a small vessel basis. There are no abnormal flow voids. There is no evidence of pathologic enhancement. There is fluid within the posterior nasopharynx. There are maxillary sinus retention cysts. IMPRESSION: 1. Examination compromised secondary to patient motion 2. No acute intracranial findings. No evidence of acute or subacute infarction. No evidence for intracranial mass. ] CHEST ONE VIEW PORTABLE CLINICAL HISTORY: Intubated RESPIRATORY FAILURE COMPARISON STUDY: N 2117 FINDINGS: The cardiac and mediastinal contours are normal. There is a nasogastric tube which passes into the stomach. There is an endotracheal tube 4 cm above the madelin. There is no failure. There is no focal pulmonary consolidation.[ No pleural effusions are visualized. IMPRESSION: Endotracheal tube 4 cm above the madelin. Nasogastric tube passing into the stomach. No evidence of focal pulmonary consolidation. -no evidence of pericardial effusion and grossly normal biventricular function. -normal biventricular systolic function -No significant valvular regurgitation was noted with aortic valve, tricuspid valve, mitral valve. -The aortic valve was tricuspid in morphology with normal excursion and no . Data Medications: Current Inpatient Medications Medications (Trade) Dose Ordered Sig/[place]ok Route Start Time Stop Time Status Last Admin Dose Admin Enoxaparin Sodium (Lovenox Inj) 40 mg Q24H SQ 10/13/17 08:00 11/12/17 07:59 10/17/17 09:19 40 MG Artificial Tears (Lacri-Lube Oph Oint) 1 appln Q2H PRN OPB 11/20/17 05:30 11/12/17 05:29 Pantoprazole Sodium 40 mg/ Syringe 10 ml @ 5 mls/min DAILY@11 IV 10/13/17 11:00 11/12/17 10:59 10/17/17 11:22 5 MLS/MIN Oseltamivir Phosphate (Tamiflu Susp) 75 mg BID NG 10/13/17 11:00 10/18/17 10:59 10/17/17 09:19 75 MG Aspirin (Aspirin Chew) 81 mg QAM PO 10/13/17 13:00 11/12/17 12:59 10/17/17 09:18 81 MG Enteral Nutritional Formula (Peptamen Intense VHP) 1,000 ml UD PRN OG 10/13/17 13:30 11/12/17 13:29 10/16/17 04:21 1,000 ML Senna (Senokot Tab) 8.6 mg QAM PRN PO 10/14/17 10:45 11/13/17 10:44 Ipratropium [place] (Atrovent Hfa Inhaler) 4 puffs Q4R INH 10/14/17 20:00 11/13/17 19:59 10/17/17 11:32 4 PUFFS Albuterol (Ventolin Hfa Inhaler) 4 puffs Q4R INH 10/14/17 20:00 11/13/17 19:59 10/17/17 11:32 4 PUFFS Gadobutrol (Gadavist) 6.5 mmol UD PRN IV 10/15/17 02:20 10/19/17 02:19 Metoprolol Tartrate (Lopressor Iv) 5 mg Q6 PRN IV 10/15/17 12:30 11/14/17 12:29 10/17/17 06:07 5 MG Midazolam HCl (Versed Inj) 2 mg Q2H PRN IV 10/15/17 12:30 11/14/17 12:29 Fentanyl Citrate (Fentanyl Inj) 50 mcg Q2H PRN IV 10/15/17 12:30 10/29/17 12:29 10/17/17 10:17 50 MCG Polyethylene (Miralax Powder Packet) 17 gm QAM PO 10/15/17 12:30 11/14/17 12:29 10/16/17 07:34 17 GM Amlodipine Besylate (Norvasc Tab) 10 mg QAM PO 10/16/17 09:00 11/15/17 08:59 10/17/17 09:18 10 MG Methylprednisolone Sodium Succinate 20 mg/Syringe 0.32 ml @ 1.5 mls/min Q12@0900,2100 IV 10/17/17 09:00 10/17/17 21:01 10/17/17 09:18 1.5 MLS/MIN Metoprolol Tartrate (Lopressor Tab) 75 mg BID PO 10/17/17 09:00 11/16/17 08:59 10/17/17 09:18 75 MG Vital Signs: Date Time Temp Pulse Resp B/P (MAP) Pulse Ox O2 Delivery O2 Flow Rate FiO2 10/17/17 11:32 50 10/17/17 08:04 50 10/17/17 07:30 Mechanical Ventilator 4.0 50 10/17/17 07:30 50 10/17/17 06:42 38.0 88 29 178/109 (127) 93 10/17/17 06:40 38.0 85 29 166/107 (129) 93 10/17/17 06:31 38.0 86 27 167/111 (119) 93 10/17/17 06:12 50 10/17/17 06:07 110 161/115 10/17/17 06:01 38.0 93 26 161/115 (141) 91 10/17/17 05:31 38.0 100 27 177/104 (118) 93 10/17/17 05:01 37.8 96 24 133/98 (104) 90 10/17/17 04:31 37.7 83 22 154/97 (114) 92 10/17/17 04:01 37.9 101 27 167/109 (128) 94 10/17/17 04:00 40 10/17/17 04:00 95 Mechanical Ventilator 40 10/17/17 03:31 37.9 91 24 153/101 (111) 94 10/17/17 03:23 86 24 95 Mechanical Ventilator 10/17/17 03:01 37.9 95 25 173/108 (127) 91 10/17/17 02:09 40 10/17/17 02:01 37.9 82 22 176/97 (118) 94 10/17/17 01:31 37.9 90 24 166/114 (127) 94 10/17/17 01:01 37.8 86 23 173/116 (139) 94 10/17/17 00:31 37.8 69 11 150/94 (102) 90 10/17/17 00:15 37.7 74 17 156/94 (124) 91 10/16/17 23:59 40 10/16/17 23:59 93 CPAP 40 10/16/17 23:31 37.7 78 26 188/109 (146) 95 10/16/17 23:01 37.8 78 26 176/107 (124) 96 10/16/17 22:50 40 10/16/17 22:20 80 195/112 10/16/17 21:01 37.7 80 20 162/98 (119) 93 10/16/17 21:00 37.7 70 18 95 10/16/17 20:45 37.6 78 18 94 10/16/17 20:31 37.7 90 23 179/110 (133) 95 10/16/17 20:30 37.7 85 23 95 10/16/17 20:15 37.7 84 21 94 10/16/17 20:01 37.7 96 23 168/108 (128) 95 10/16/17 20:00 40 10/16/17 20:00 37.7 88 22 95 10/16/17 20:00 93 CPAP 40 10/16/17 19:45 37.7 86 20 93 10/16/17 19:31 37.6 96 20 184/110 (134) 94 10/16/17 19:30 37.6 92 21 95 10/16/17 19:15 37.5 87 21 97 10/16/17 19:05 40 10/16/17 19:01 37.6 80 17 145/88 (107) 93 10/16/17 19:00 37.6 79 19 94 10/16/17 18:45 37.5 71 14 93 10/16/17 18:35 37.6 77 12 181/106 (131) 10/16/17 18:31 37.5 81 16 171/107 (128) 92 10/16/17 18:30 37.5 81 17 92 10/16/17 18:15 37.5 82 17 93 10/16/17 18:15 37.5 82 17 93 10/16/17 18:01 37.5 79 21 169/109 (129) 92 10/16/17 18:00 37.5 84 22 92 10/16/17 17:45 37.4 85 22 91 10/16/17 17:31 37.4 89 25 178/119 (138) 92 10/16/17 17:30 37.4 86 24 92 10/16/17 17:15 37.4 84 23 92 10/16/17 17:02 40 10/16/17 17:01 37.4 79 23 167/103 (124) 93 10/16/17 17:00 37.4 70 19 92 10/16/17 16:45 37.4 80 18 95 10/16/17 16:31 37.4 81 23 175/108 (130) 97 10/16/17 16:30 37.4 80 18 96 10/16/17 16:15 37.4 78 22 97 10/16/17 16:04 95 CPAP 40 10/16/17 16:01 37.4 78 20 164/108 (126) 97 10/16/17 16:00 37.4 77 20 96 10/16/17 16:00 40 10/16/17 15:45 37.4 80 21 96 10/16/17 15:45 37.4 80 21 96 10/16/17 15:31 37.3 71 18 164/98 (120) 95 10/16/17 15:30 37.3 75 19 96 10/16/17 15:15 37.3 82 19 96 10/16/17 15:01 37.3 66 14 135/82 (99) 94 10/16/17 15:00 37.3 70 14 93 10/16/17 14:45 37.3 82 21 96 10/16/17 14:31 40 10/16/17 14:13 37.3 74 19 159/97 (117) 95 CPAP 40 Mechanical Ventilator 10/16/17 14:08 165 159/97 10/16/17 12:00 40 10/16/17 12:00 CPAP 40 Mechanical Ventilator 10/16/17 12:00 37.1 84 17 170/106 (127) 97 CPAP 40 Mechanical Ventilator Laboratory Results: Last 24 Hours Test 10/17/17 05:31 10/17/17 05:54 Bedside Glucose 138 mg/dl White Blood Count 11.82 K/uL Red Blood Count 5.35 M/uL Hemoglobin 16.5 g/dL Hematocrit 50.1 % Mean Corpuscular Volume 93.6 fL Mean Corpuscular Hemoglobin 30.8 pg Mean Corpuscular Hemoglobin Concent 32.9 g/dl Platelet Count 227 K/uL Mean Platelet Volume 10.0 fL Neutrophils (%) (Auto) 63.9 % Lymphocytes (%) (Auto) 13.8 % Monocytes (%) (Auto) 21.6 % Eosinophils (%) (Auto) 0.1 % Basophils (%) (Auto) 0.2 % Neutrophils # (Auto) 7.56 K/uL Lymphocytes # (Auto) 1.63 K/uL Monocytes # (Auto) 2.55 K/uL Eosinophils # (Auto) 0.01 K/uL Basophils # (Auto) 0.02 K/uL RDW Standard Deviation 47.0 fL RDW Coefficient of Variation 13.7 % Immature Granulocyte % (Auto) 0.4 % Immature Granulocyte # (Auto) 0.05 K/uL Venous Blood pH 7.46 Venous Blood Partial Pressure CO2 48 mmHg Venous Blood Partial Pressure O2 60 mmHg Venous Blood HCO3 33 mmol/L Venous Blood Oxygen Saturation 91.2 % Venous Blood Base Excess 7.5 mEq/L Sodium Level 141 mmol/L Potassium Level 4.0 mmol/L Chloride Level 103 mmol/L Carbon Dioxide Level 33 mmol/L Anion Gap 5.0 mmol/L Blood Urea Nitrogen 39 mg/dl Creatinine 0.60 mg/dl Est Creatinine Clear Calc Drug Dose 110.7 ml/min Estimated GFR () 124.9 Estimated GFR (Non- 107.8 BUN/Creatinine Ratio 65.1 Random Glucose 161 mg/dl Calcium Level 9.3 mg/dl Phosphorus Level 2.7 mg/dl Magnesium Level 2.4 mg/dl Total Bilirubin 0.8 mg/dl Direct Bilirubin 0.2 mg/dl Aspartate Amino Transf (AST/SGOT) 31 U/L Alanine Aminotransferase (ALT/SGPT) 55 U/L Alkaline Phosphatase 55 U/L Total Protein 7.4 gm/dl Albumin 2.9 gm/dl Resident Tracking Resident Involvement: Resident Care Provided Care Provided: Adult [facility]
[2017-10-17] MEDS: PEPTAMEN INTENSE VHP 1000ML BAG OG PRN (13:19)
--- NOTE | 2017-10-17 15:11 | Progress Note ---
Internal Med Progress Note Date of Service: Oct 17, 2017. Provider Documentation: SUBJECTIVE: still intubated no response for verbal or painful stimuli stable hemodynamics. Vital Signs-as noted below Exam: General-s/p intubation and sedation Neck-no neck masses seen Lungs-cta b/l no wheezing or crackles heard Heart-s1 and s2 heard regular rate and rhythm no murmurs Abdomen-soft bowel sounds present non tender no distension Extremities-no erythema Neuro-s/p intubation and sedation no response to painful stimuli Lab data as noted below. ASSESSMENT & PLAN: Patient is a 62 year old male presented secondary to respiratory distress and subsequently cardiopulmonary arrest Cardiopulmonary Arrest likely from Acute Hypoxic-Hypercapnic Respiratory Failure Possible Asthma/COPD Exacerbation from Influenza Influenza A Pcr on iv steroids and Tamiflu positive cultures no growth so far appreciate critical care and cardiology inputs having temp spikes- to monitor to continue same Vent Dependent respiratory failure secondary to above vent management and weaning as per critical care. Encephalopathy unresponsive brain injury from hypoxia? continue to monitor and supportive care possible family meeting soon to decide plan of care Elevated Lactic Acid will monitor levels Medical Records needs to obtain medical records re: past medical history and medications moreira the friend Linsey to obtain more information re: medical history , PCP, medications but was not able to contact him Cousin is Fatemeh Del Rosario (ph: [phone]). plan for family meeting soon DVT ppx Lovenox Disposition apparently patient lives in a trailer by himself to be determined Vital Signs: Date Time Temp Pulse Resp B/P (MAP) Pulse Ox O2 Delivery O2 Flow Rate FiO2 10/17/17 14:59 50 10/17/17 13:31 37.9 89 25 156/99 (111) 93 10/17/17 13:30 37.9 79 21 92 10/17/17 13:30 37.8 90 25 159/66 (97) 93 Mechanical Ventilator 50 10/17/17 13:01 37.9 88 27 156/93 (110) 91 10/17/17 13:00 37.9 81 23 91 10/17/17 12:31 38.0 87 25 146/90 (104) 89 10/17/17 12:30 38.0 85 25 90 10/17/17 12:01 38.1 84 26 161/100 (109) 91 10/17/17 12:00 50 10/17/17 12:00 Mechanical Ventilator 50 10/17/17 12:00 38.1 86 27 91 10/17/17 11:32 50 10/17/17 11:31 38.2 81 26 163/97 (110) 97 10/17/17 11:30 38.3 81 26 97 10/17/17 11:12 37.5 81 26 174/99 (121) 98 10/17/17 11:01 37.6 78 26 178/99 (121) 97 10/17/17 11:00 37.5 79 26 97 10/17/17 10:31 38.0 71 19 140/86 (100) 97 10/17/17 10:30 37.6 70 19 97 10/17/17 10:01 37.6 83 29 179/107 (129) 96 10/17/17 10:00 37.8 84 29 96 10/17/17 09:31 37.8 90 26 156/91 (122) 95 10/17/17 09:30 37.9 94 26 95 10/17/17 09:01 38.2 102 30 190/107 (122) 95 10/17/17 09:00 38.2 93 30 95 10/17/17 08:31 38.1 100 28 166/110 (124) 92 10/17/17 08:30 38.1 94 28 92 10/17/17 08:04 50 10/17/17 08:01 38.0 85 24 156/93 (111) 90 10/17/17 08:00 38.0 90 24 91 10/17/17 07:31 38.0 97 33 182/117 (130) 93 10/17/17 07:30 38.0 94 29 91 10/17/17 07:30 Mechanical Ventilator 4.0 50 10/17/17 07:30 50 10/17/17 07:01 38.0 86 25 157/103 (113) 92 10/17/17 07:00 37.9 86 25 92 10/17/17 06:42 38.0 88 29 178/109 (127) 93 10/17/17 06:40 38.0 85 29 166/107 (129) 93 10/17/17 06:31 38.0 86 27 167/111 (119) 93 10/17/17 06:12 50 10/17/17 06:07 110 161/115 10/17/17 06:01 38.0 93 26 161/115 (141) 91 10/17/17 05:31 38.0 100 27 177/104 (118) 93 10/17/17 05:01 37.8 96 24 133/98 (104) 90 10/17/17 04:31 37.7 83 22 154/97 (114) 92 10/17/17 04:01 37.9 101 27 167/109 (128) 94 10/17/17 04:00 40 10/17/17 04:00 95 Mechanical Ventilator 40 10/17/17 03:31 37.9 91 24 153/101 (111) 94 10/17/17 03:23 86 24 95 Mechanical Ventilator 10/17/17 03:01 37.9 95 25 173/108 (127) 91 10/17/17 02:09 40 10/17/17 02:01 37.9 82 22 176/97 (118) 94 10/17/17 01:31 37.9 90 24 166/114 (127) 94 10/17/17 01:01 37.8 86 23 173/116 (139) 94 10/17/17 00:31 37.8 69 11 150/94 (102) 90 10/17/17 00:15 37.7 74 17 156/94 (124) 91 10/16/17 23:59 40 10/16/17 23:59 93 CPAP 40 10/16/17 23:31 37.7 78 26 188/109 (146) 95 10/16/17 23:01 37.8 78 26 176/107 (124) 96 10/16/17 22:50 40 10/16/17 22:20 80 195/112 10/16/17 21:01 37.7 80 20 162/98 (119) 93 10/16/17 21:00 37.7 70 18 95 10/16/17 20:45 37.6 78 18 94 10/16/17 20:31 37.7 90 23 179/110 (133) 95 10/16/17 20:30 37.7 85 23 95 10/16/17 20:15 37.7 84 21 94 10/16/17 20:01 37.7 96 23 168/108 (128) 95 10/16/17 20:00 40 10/16/17 20:00 37.7 88 22 95 10/16/17 20:00 93 CPAP 40 10/16/17 19:45 37.7 86 20 93 10/16/17 19:31 37.6 96 20 184/110 (134) 94 10/16/17 19:30 37.6 92 21 95 10/16/17 19:15 37.5 87 21 97 10/16/17 19:05 40 10/16/17 19:01 37.6 80 17 145/88 (107) 93 10/16/17 19:00 37.6 79 19 94 10/16/17 18:45 37.5 71 14 93 10/16/17 18:35 37.6 77 12 181/106 (131) 10/16/17 18:31 37.5 81 16 171/107 (128) 92 10/16/17 18:30 37.5 81 17 92 10/16/17 18:15 37.5 82 17 93 10/16/17 18:15 37.5 82 17 93 10/16/17 18:01 37.5 79 21 169/109 (129) 92 10/16/17 18:00 37.5 84 22 92 10/16/17 17:45 37.4 85 22 91 10/16/17 17:31 37.4 89 25 178/119 (138) 92 10/16/17 17:30 37.4 86 24 92 10/16/17 17:15 37.4 84 23 92 10/16/17 17:02 40 10/16/17 17:01 37.4 79 23 167/103 (124) 93 10/16/17 17:00 37.4 70 19 92 10/16/17 16:45 37.4 80 18 95 10/16/17 16:31 37.4 81 23 175/108 (130) 97 10/16/17 16:30 37.4 80 18 96 10/16/17 16:15 37.4 78 22 97 10/16/17 16:04 95 CPAP 40 10/16/17 16:01 37.4 78 20 164/108 (126) 97 10/16/17 16:00 37.4 77 20 96 10/16/17 16:00 40 10/16/17 15:45 37.4 80 21 96 10/16/17 15:45 37.4 80 21 96 10/16/17 15:31 37.3 71 18 164/98 (120) 95 10/16/17 15:30 37.3 75 19 96 10/16/17 15:15 37.3 82 19 96 Lab Results: Results Past 24 Hours Test 10/17/17 05:31 10/17/17 05:54 Range/Units Bedside Glucose 138 70-99 mg/dl White Blood Count 11.82 4.8-10.8 K/uL Red Blood Count 5.35 4.7-6.1 M/uL Hemoglobin 16.5 14.0-18.0 g/dL Hematocrit 50.1 42-52 % Mean Corpuscular Volume 93.6 80-100 fL Mean Corpuscular Hemoglobin 30.8 25-34 pg Mean Corpuscular Hemoglobin Concent 32.9 32-36 g/dl Platelet Count 227 130-400 K/uL Mean Platelet Volume 10.0 7.4-10.4 fL Neutrophils (%) (Auto) 63.9 % Lymphocytes (%) (Auto) 13.8 % Monocytes (%) (Auto) 21.6 % Eosinophils (%) (Auto) 0.1 % Basophils (%) (Auto) 0.2 % Neutrophils # (Auto) 7.56 1.4-6.5 K/uL Lymphocytes # (Auto) 1.63 1.2-3.4 K/uL Monocytes # (Auto) 2.55 0.11-0.59 K/uL Eosinophils # (Auto) 0.01 0-0.5 K/uL Basophils # (Auto) 0.02 0-0.2 K/uL RDW Standard Deviation 47.0 36.4-46.3 fL RDW Coefficient of Variation 13.7 11.5-14.5 % Immature Granulocyte % (Auto) 0.4 % Immature Granulocyte # (Auto) 0.05 0.00-0.02 K/uL Venous Blood pH 7.46 7.36-7.41 Venous Blood Partial Pressure CO2 48 38.0-50.0 mmHg Venous Blood Partial Pressure O2 60 mmHg Venous Blood HCO3 33 mmol/L Venous Blood Oxygen Saturation 91.2 % Venous Blood Base Excess 7.5 mEq/L Sodium Level 141 136-145 mmol/L Potassium Level 4.0 3.5-5.1 mmol/L Chloride Level 103 98-107 mmol/L Carbon Dioxide Level 33 21-32 mmol/L Anion Gap 5.0 3-11 mmol/L Blood Urea Nitrogen 39 7-18 mg/dl Creatinine 0.60 0.60-1.40 mg/dl Est Creatinine Clear Calc Drug Dose 110.7 ml/min Estimated GFR () 124.9 Estimated GFR (Non- 107.8 BUN/Creatinine Ratio 65.1 10-20 Random Glucose 161 70-99 mg/dl Calcium Level 9.3 8.5-10.1 mg/dl Phosphorus Level 2.7 2.5-4.9 mg/dl Magnesium Level 2.4 1.8-2.4 mg/dl Total Bilirubin 0.8 0.2-1 mg/dl Direct Bilirubin 0.2 0-0.2 mg/dl Aspartate Amino Transf (AST/SGOT) 31 15-37 U/L Alanine Aminotransferase (ALT/SGPT) 55 12-78 U/L Alkaline Phosphatase 55 45-117 U/L Total Protein 7.4 6.4-8.2 gm/dl Albumin 2.9 3.4-5.0 gm/dl
--- NOTE | 2017-10-17 15:57 | PROGRESS NOTE ---
DATE: 10/17/2017 Liborio looks if anything worse than he did yesterday. He is less responsive to noxious stimuli, would not withdraw his hands and does withdraw his toes a little bit. No longer has a grimacing to mandibular pressure and has a rapidly diminishing blink reflex response. Eye movements remained relatively immobile now whereas they were a little on the roving side and pupils are midposition and react poorly. He is on CPAP and not on a full ventilation and is occasionally requiring some narcotics for periods of tachypnea which may reflect some agitation, but overall if anything again look worse than he did yesterday and in this setting post-arrest, I really cannot be optimistic that we are going to get anything more than a persistent vegetative state. The ICU staff is talking to available family members by phone to try to get a policy here and we will see how things go, but for now I certainly would support any type of policy that would put this man on comfort care measures and let nature take its course. I will check back with him tomorrow. KALPANA
--- NOTE | 2017-10-17 16:04 | Palliative Care Consultation ---
Consultation Date of Consultation: Oct 17, 2017. Requesting Physician: Dr Uriarte Attending Physician: Dr Uriarte Reason for Consultation: Assist family/HCS with medical decision making History of Present Illness Pt is a 62 yo male with a PMH of COPD who was having increased SOB and cough since 10/12. Pt called 911 on 10/13 - on arrival pt was awake and alert, but SOB. While receiving second neb treatment pt's sats dropped to < 75% and pt became unresponsive and had no HR. CPR was started and pt received epi X 1 and was intubated. HR restored after 3-4 min of CPR. Pt tested + for Flu A and is on a vent in the ICU. Pt has not regained consciousness despite being off sedatives X > 72 hours. Pt has had serial evaluations by Neurology - prognosis is poor. Participated in conference call with Jeri Gabriel from , pt's friend and HCS, Shamar, as well as 2 cousins Fatemeh and Sinai. Dr Uriarte discussed Pt's condition and prognosis, as well as treatment options. Family and friend decided to travel to [facility] and meet again tomorrow after seeing pt for themselves and will think about options presented to them today regarding further care for pt. Cousins will also search his home for any advanced directives pt may have there. No PMH is known as pt has not been responsive and family only aware of COPD. Past Medical/Surgical History Medical History: COPD Surgical History: unknown Family History unknown Social History Smoking Status: Unknown if Ever Smoked Drug Use: none Marital Status: single Housing Status: lives alone Review of Systems Unable to obtain - pt intubated and unresponsive Allergies Coded Allergies: No Known Allergies (Unverified , 10/13/17) Medications Current Inpatient Medications Medications (Trade) Dose Ordered Sig/Brook Route Start Time Stop Time Status Last Admin Dose Admin Enoxaparin Sodium (Lovenox Inj) 40 mg Q24H SQ 10/13/17 08:00 11/12/17 07:59 10/17/17 09:19 40 MG Artificial Tears (Lacri-Lube Oph Oint) 1 appln Q2H PRN OPB 10/13/17 05:30 11/12/17 05:29 Pantoprazole Sodium 40 mg/ Syringe 10 ml @ 5 mls/min DAILY@11 IV 10/13/17 11:00 11/12/17 10:59 10/17/17 11:22 5 MLS/MIN Oseltamivir Phosphate (Tamiflu Susp) 75 mg BID NG 10/13/17 11:00 10/18/17 10:59 10/17/17 09:19 75 MG Aspirin (Aspirin Chew) 81 mg QAM PO 10/13/17 13:00 11/12/17 12:59 10/17/17 09:18 81 MG Enteral Nutritional Formula (Peptamen Intense VHP) 1,000 ml UD PRN OG 10/13/17 13:30 11/12/17 13:29 10/17/17 13:19 1,000 ML Senna (Senokot Tab) 8.6 mg QAM PRN PO 10/14/17 10:45 11/13/17 10:44 Ipratropium Spart[place] (Atrovent Hfa Inhaler) 4 puffs Q4R INH 10/14/17 20:00 11/13/17 19:59 10/17/17 14:58 4 PUFFS Albuterol (Ventolin Hfa Inhaler) 4 puffs Q4R INH 10/14/17 20:00 11/13/17 19:59 10/17/17 14:58 4 PUFFS Gadobutrol (Gadavist) 6.5 mmol UD PRN IV 10/15/17 02:20 10/19/17 02:19 Metoprolol Tartrate (Lopressor Iv) 5 mg Q6 PRN IV 10/15/17 12:30 11/14/17 12:29 10/17/17 06:07 5 MG Midazolam HCl (Versed Inj) 2 mg Q2H PRN IV 10/15/17 12:30 11/14/17 12:29 Fentanyl Citrate (Fentanyl Inj) 50 mcg Q2H PRN IV 10/15/17 12:30 10/29/17 12:29 10/17/17 10:17 50 MCG Polyethylene (Miralax Powder Packet) 17 gm QAM PO 10/15/17 12:30 11/14/17 12:29 10/16/17 07:34 17 GM Amlodipine Besylate (Norvasc Tab) 10 mg QAM PO 10/16/17 09:00 11/15/17 08:59 10/17/17 09:18 10 MG Methylprednisolone Sodium Succinate 20 mg/Syringe 0.32 ml @ 1.5 mls/min Q12@0900,2100 IV 10/17/17 09:00 10/17/17 21:01 10/17/17 09:18 1.5 MLS/MIN Metoprolol Tartrate (Lopressor Tab) 75 mg BID PO 10/17/17 09:00 11/16/17 08:59 10/17/17 09:18 75 MG Physical Exam Date Time Temp Pulse Resp B/P (MAP) Pulse Ox O2 Delivery O2 Flow Rate FiO2 10/17/17 14:59 50 10/17/17 13:31 37.9 89 25 156/99 (111) 93 10/17/17 13:30 37.9 79 21 92 10/17/17 13:30 37.8 90 25 159/66 (97) 93 Mechanical Ventilator 50 10/17/17 13:01 37.9 88 27 156/93 (110) 91 10/17/17 13:00 37.9 81 23 91 10/17/17 12:31 38.0 87 25 146/90 (104) 89 10/17/17 12:30 38.0 85 25 90 10/17/17 12:01 38.1 84 26 161/100 (109) 91 10/17/17 12:00 50 10/17/17 12:00 Mechanical Ventilator 50 10/17/17 12:00 38.1 86 27 91 10/17/17 11:32 50 10/17/17 11:31 38.2 81 26 163/97 (110) 97 10/17/17 11:30 38.3 81 26 97 10/17/17 11:12 37.5 81 26 174/99 (121) 98 10/17/17 11:01 37.6 78 26 178/99 (121) 97 10/17/17 11:00 37.5 79 26 97 10/17/17 10:31 38.0 71 19 140/86 (100) 97 10/17/17 10:30 37.6 70 19 97 10/17/17 10:01 37.6 83 29 179/107 (129) 96 10/17/17 10:00 37.8 84 29 96 10/17/17 09:31 37.8 90 26 156/91 (122) 95 10/17/17 09:30 37.9 94 26 95 10/17/17 09:01 38.2 102 30 190/107 (122) 95 10/17/17 09:00 38.2 93 30 95 10/17/17 08:31 38.1 100 28 166/110 (124) 92 10/17/17 08:30 38.1 94 28 92 10/17/17 08:04 50 10/17/17 08:01 38.0 85 24 156/93 (111) 90 10/17/17 08:00 38.0 90 24 91 10/17/17 07:31 38.0 97 33 182/117 (130) 93 10/17/17 07:30 38.0 94 29 91 10/17/17 07:30 Mechanical Ventilator 4.0 50 10/17/17 07:30 50 10/17/17 07:01 38.0 86 25 157/103 (113) 92 10/17/17 07:00 37.9 86 25 92 10/17/17 06:42 38.0 88 29 178/109 (127) 93 10/17/17 06:40 38.0 85 29 166/107 (129) 93 10/17/17 06:31 38.0 86 27 167/111 (119) 93 10/17/17 06:12 50 10/17/17 06:07 110 161/115 10/17/17 06:01 38.0 93 26 161/115 (141) 91 10/17/17 05:31 38.0 100 27 177/104 (118) 93 10/17/17 05:01 37.8 96 24 133/98 (104) 90 10/17/17 04:31 37.7 83 22 154/97 (114) 92 10/17/17 04:01 37.9 101 27 167/109 (128) 94 10/17/17 04:00 40 10/17/17 04:00 95 Mechanical Ventilator 40 10/17/17 03:31 37.9 91 24 153/101 (111) 94 10/17/17 03:23 86 24 95 Mechanical Ventilator 10/17/17 03:01 37.9 95 25 173/108 (127) 91 10/17/17 02:09 40 10/17/17 02:01 37.9 82 22 176/97 (118) 94 10/17/17 01:31 37.9 90 24 166/114 (127) 94 10/17/17 01:01 37.8 86 23 173/116 (139) 94 10/17/17 00:31 37.8 69 11 150/94 (102) 90 10/17/17 00:15 37.7 74 17 156/94 (124) 91 10/16/17 23:59 40 10/16/17 23:59 93 CPAP 40 10/16/17 23:31 37.7 78 26 188/109 (146) 95 10/16/17 23:01 37.8 78 26 176/107 (124) 96 10/16/17 22:50 40 10/16/17 22:20 80 195/112 10/16/17 21:01 37.7 80 20 162/98 (119) 93 10/16/17 21:00 37.7 70 18 95 10/16/17 20:45 37.6 78 18 94 10/16/17 20:31 37.7 90 23 179/110 (133) 95 10/16/17 20:30 37.7 85 23 95 10/16/17 20:15 37.7 84 21 94 10/16/17 20:01 37.7 96 23 168/108 (128) 95 10/16/17 20:00 40 10/16/17 20:00 37.7 88 22 95 10/16/17 20:00 93 CPAP 40 10/16/17 19:45 37.7 86 20 93 10/16/17 19:31 37.6 96 20 184/110 (134) 94 10/16/17 19:30 37.6 92 21 95 10/16/17 19:15 37.5 87 21 97 10/16/17 19:05 40 10/16/17 19:01 37.6 80 17 145/88 (107) 93 10/16/17 19:00 37.6 79 19 94 10/16/17 18:45 37.5 71 14 93 10/16/17 18:35 37.6 77 12 181/106 (131) 10/16/17 18:31 37.5 81 16 171/107 (128) 92 10/16/17 18:30 37.5 81 17 92 10/16/17 18:15 37.5 82 17 93 10/16/17 18:15 37.5 82 17 93 10/16/17 18:01 37.5 79 21 169/109 (129) 92 10/16/17 18:00 37.5 84 22 92 10/16/17 17:45 37.4 85 22 91 10/16/17 17:31 37.4 89 25 178/119 (138) 92 10/16/17 17:30 37.4 86 24 92 10/16/17 17:15 37.4 84 23 92 10/16/17 17:02 40 10/16/17 17:01 37.4 79 23 167/103 (124) 93 10/16/17 17:00 37.4 70 19 92 10/16/17 16:45 37.4 80 18 95 10/16/17 16:31 37.4 81 23 175/108 (130) 97 10/16/17 16:30 37.4 80 18 96 10/16/17 16:15 37.4 78 22 97 10/16/17 16:04 95 CPAP 40 General Appearance: + pertinent finding (intubated, prolonged expiratory phase) Eyes: PERRL ENT: + pertinent finding (BRADY) Neck: trachea midline Respiratory: + decreased breath sounds, + accessory muscle use Cardiovascular: regular rate, rhythm, + normal peripheral pulses Abdomen: + pertinent finding (decrease BS) Musculoskeletal: poor tone Neurologic/Psychiatric: + pertinent finding (unresponsive) Skin: warm/dry Laboratory Results Last 24 Hours Test 10/17/17 05:31 10/17/17 05:54 Bedside Glucose 138 mg/dl White Blood Count 11.82 K/uL Red Blood Count 5.35 M/uL Hemoglobin 16.5 g/dL Hematocrit 50.1 % Mean Corpuscular Volume 93.6 fL Mean Corpuscular Hemoglobin 30.8 pg Mean Corpuscular Hemoglobin Concent 32.9 g/dl Platelet Count 227 K/uL Mean Platelet Volume 10.0 fL Neutrophils (%) (Auto) 63.9 % Lymphocytes (%) (Auto) 13.8 % Monocytes (%) (Auto) 21.6 % Eosinophils (%) (Auto) 0.1 % Basophils (%) (Auto) 0.2 % Neutrophils # (Auto) 7.56 K/uL Lymphocytes # (Auto) 1.63 K/uL Monocytes # (Auto) 2.55 K/uL Eosinophils # (Auto) 0.01 K/uL Basophils # (Auto) 0.02 K/uL RDW Standard Deviation 47.0 fL RDW Coefficient of Variation 13.7 % Immature Granulocyte % (Auto) 0.4 % Immature Granulocyte # (Auto) 0.05 K/uL Venous Blood pH 7.46 Venous Blood Partial Pressure CO2 48 mmHg Venous Blood Partial Pressure O2 60 mmHg Venous Blood HCO3 33 mmol/L Venous Blood Oxygen Saturation 91.2 % Venous Blood Base Excess 7.5 mEq/L Sodium Level 141 mmol/L Potassium Level 4.0 mmol/L Chloride Level 103 mmol/L Carbon Dioxide Level 33 mmol/L Anion Gap 5.0 mmol/L Blood Urea Nitrogen 39 mg/dl Creatinine 0.60 mg/dl Est Creatinine Clear Calc Drug Dose 110.7 ml/min Estimated GFR () 124.9 Estimated GFR (Non- 107.8 BUN/Creatinine Ratio 65.1 Random Glucose 161 mg/dl Calcium Level 9.3 mg/dl Phosphorus Level 2.7 mg/dl Magnesium Level 2.4 mg/dl Total Bilirubin 0.8 mg/dl Direct Bilirubin 0.2 mg/dl Aspartate Amino Transf (AST/SGOT) 31 U/L Alanine Aminotransferase (ALT/SGPT) 55 U/L Alkaline Phosphatase 55 U/L Total Protein 7.4 gm/dl Albumin 2.9 gm/dl Assessment & Plan Palliative Performance Scale: 10 % (1) Influenza A Status: Acute Assessment & Plan: on Tamiflu (2) COPD with exacerbation Status: Acute Assessment & Plan: on Duonebs Q 4 hours (3) Acute respiratory failure Status: Acute Assessment & Plan: Intubated, failed extubation trial due to poor gag and cough (4) Cardiac arrest Status: Acute Assessment & Plan: s/p CPR, epi X 1 - now on Norvasc and Metoprolol for BP control Spoke with family and friend on conference call, will plan to meet with them tomorrow when they arrive to assist with medical decision making . Total time : 65 minutes with > 50% of time spent examining pt and participating on conference call.
[2017-10-17] MEDS ORDERED: HydrALAZINE HCL 20 MG/ML VIAL ONE (23:20)
[2017-10-17] MEDS ORDERED: HydrALAZINE HCL 20 MG/ML VIAL IV. ONE (23:30)
[2017-10-18] VITALS (32 sets, daily range): BP systolic 129–185; BP diastolic 76–113; PULSE 80–166; TEMP 37.6–38.5; O2SAT 90–97
[2017-10-18] MEDS: IPRATROPIUM BROMIDE HFA INHALER INH SCH ×4 (00:09→11:35)
[2017-10-18] MEDS: ALBUTEROL HFA 8 GM INHALER INH SCH ×4 (00:09→11:35)
[2017-10-18] MEDS: FENTANYL CITRATE INJ 50 MCG/1 ML 2 ML VIAL IV PRN ×3 (01:03→11:57)
[2017-10-18 05:34] LABS: BASO % 0.2 %; BASO ABS # 0.02 K/uL (0-0.2); COMPLETE YES; HEMATOCRIT 50.1 % (42-52); IG% 0.6 %; LYMPH % 12.3 %; LYMPH ABS # 1.32 K/uL (1.2-3.4); MEAN CELL VOLUME 94.4 fL (80-100); MEAN CORPUSCULAR HEMOGLOBIN 30.9 pg (25-34); MEAN CORPUSCULAR HGB CONC 32.7 g/dl (32-36); MEAN PLATELET VOLUME 10.3 fL (7.4-10.4); MONO % 16.7 %; NEUT % 70.2 %; PLATELET COUNT 236 K/uL (130-400); RED BLOOD COUNT 5.31 M/uL (4.7-6.1); WHITE BLOOD COUNT 10.73 K/uL (4.8-10.8)
[2017-10-18 05:42] LABS: VEN BLD GAS O2 SATURATION 92.7 %; VEN BLOOD GAS BASE EXCESS 7.9 mEq/L
[2017-10-18 05:54] LABS: BUN/CREATININE RATIO 73.1 (10-20); CALCIUM 9.2 mg/dl (8.5-10.1); CREATININE 0.69 mg/dl (0.60-1.40); MAGNESIUM 2.7 mg/dl (1.8-2.4); PHOSPHORUS 2.7 mg/dl (2.5-4.9); POTASSIUM 3.9 mmol/L (3.5-5.1)
--- NOTE | 2017-10-18 08:03 | DIAGNOSTIC IMAGING REPORT ---
CHEST ONE VIEW PORTABLE CLINICAL HISTORY: Intubated COMPARISON STUDY: Chest radiograph October 17, 2017. FINDINGS: The tip of the endotracheal tube is 4.9 cm above the madelin. Tip of nasogastric tube is below lower aspect of image but at least within the mid body of the stomach. There is no evidence for pulmonary edema. Cardiomediastinal silhouette is normal. There is no pneumothorax. Mild left basilar opacity is increased. IMPRESSION: 1. Satisfactory positioning of lines and tubes. 2. Increasing left basilar opacity which is predominantly linear. Atelectasis is favored although pneumonia could appear similar. Electronically signed by: Ramírez Richardson M.D. 10/18/2017 8:02 AM Dictated Date/Time: 10/18/2017 8:01 AM
[2017-10-18] MEDS: AMLODIPINE BESYLATE 5 MG TAB PO SCH (08:31)
[2017-10-18] MEDS: POLYETHYLENE (MIRALAX) 17 GM PACK PO SCH (08:31)
[2017-10-18] MEDS: ENOXAPARIN 40 MG/0.4 ML SYR SQ SCH (08:31)
[2017-10-18] MEDS: METOPROLOL TARTRATE 50 MG TAB PO SCH (08:32)
[2017-10-18] MEDS: OSELTAMIVIR PHOSPHATE SUSP 75 MG/12.5 ML UDP NG SCH (08:49)
[2017-10-18] MEDS: ASPIRIN 81 MG CHEW PO SCH (08:49)
--- NOTE | 2017-10-18 10:41 | Critical Care Progress Note ---
Critical Care Progress Note Date of Service Oct 18, 2017. ICU Day ICU Day Number: [address] Uriarte Subjective No acute events overnight, NO change in mental status. Air leak remains in cuff. Per nursing, residuals contained pink material Objective GENERAL: sedated, no distress EYE EXAM: PERRL and EOM's grossly intact OROPHARYNX: s/p intubation NECK: supple, no adenopathy, LUNGS: Clear to auscultation. HEART: no murmurs, S1 normal and S2 normal ABDOMEN: abdomen soft, normo-active bowel sounds, no masses, LOWER EXTREMITIES: No pitting edema. 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 CT head dated 10/13: Result: No acute intracranial abnormality MRA: No significant stenosis, occlusion, or aneurysm within the [place]. MRI: No acute intracranial findings. No evidence of acute or subacute infarction. No evidence for intracranial mass. Respiratory: COPD exacerbation in setting of Influenza COPD exacerbation: stable, PRN Albuterol, Solumedrol to today after last 2 doses Chest X-ray(10/18/17): Reviewed: clear lungs, ET Tube 4.9 cm from madelin Respiratory prophylaxis: Albuterol Cardiovascular: Cardiac Arrest s/p ROSC CV drips: Remains off vasoactive medications Rhythm: Sinus ECHO: Echo dated 10/13 :Technically Limited study due to poor acoustic windows with patient on vent Bedside KATIE (10/13/17): no evidence of pericardial effusion and grossly normal biventricular function,normal biventricular systolic function, No significant valvular regurgitation Fluids/Renal: IV Fluids: Fluids from intravenous medications Banda: Present GI/Nutrition: Feeding: Trickle feeds , after some regurgitation of tube feeds Prophylaxis: On Protonix drip Bowel movements:1 , Senokot, Dulcolax Miralax on board Endocrine: Last 24 hour glucose: Ranging 160's - 180's TSH wnl Hematology: Hemoglobin 16.4, Mild Leukocytosis like steroid induced DVT prophylaxis: Lovenox Infectious Disease/Immunology: Influenza Tmax: 38.5, Leukocytosis resolved Procalcitonin: negative Antimicrobials: none Influenza A swab positive Tamiflu 5/5 days Cultures: Blood: NGTD Urine: NGTD MRSA: Negative Disposition: Family discussion to be held today on medical decision making Resident Physician Supervision Note: Dr. Moon was resident physician during care of patient. I separately evaluated patient and did history and exam. I discussed the case with the resident and generally agree with the findings and plan. Patient has progressively worsened in his mental status. I believe he has suffered a severe anoxic injury and the patient is in a terminal endstage condition without chance of meaning full recovery. His surrogate medical decision makers feel that he would not want to be kept alive by artificial nutrition and hydration given such as severe encephalopathy. Accordingly he has been transitioned comfort measures and was successfully extubated. Patient will be transferred to [facility] with a palliative care consult I have personally spent 40 minutes of critical care time in the direct management of this patient. This is a life/limb threatening event. This includes time spent evaluating patient, direct bedside care, chart review, placing orders, interpretation of diagnostic studies, discussion with consultants, patient, and family members, as well as other required patient management activities. This time is exclusive of all separately billable procedures, and teaching time and separate from and in addition to any other critical care service time. Documented By: Warren Uriarte DO Consults & Procedures Consultants: Cardiology Procedures: Brain MRA HISTORY: Loss of consciousness s/p cardiac arrest TECHNIQUE: 3-D [id number] MRA of the brain was performed without contrast. COMPARISON STUDY: None. FINDINGS: Visualized intracranial internal carotid arteries, distal vertebral arteries, and basilar artery are widely patent. There is no significant stenosis, occlusion, or aneurysm seen within the bilateral ACAs, MCAs, or agate setter. IMPRESSION: No significant stenosis, occlusion, or aneurysm within the [place]. ] MRI OF THE BRAIN WITHOUT AND WITH IV CONTRAST CLINICAL HISTORY: encephalopathy HISTORY OF CARDIAC ARREST. COMPARISON STUDY: Noncontrast head CT dated 10/13/2017 TECHNIQUE: MRI of the brain was performed from the vertex to the skull base utilizing various T1 and T2 weighted sequences. Following the IV administration of 6 mL of Gadavist contrast, additional enhanced images were obtained. FINDINGS: Sagittal T1, axial diffusion, proton density and T2 weighted axial, coronal FLAIR, and pre and post axial T1-weighted images were acquired. These were supplemented with post gadolinium coronal T1 weighted images. No intra or extra-axial mass lesions are visualized. Axial diffusion-weighted images reveal no evidence of acute or subacute infarction. There is no evidence of ventricular dilatation. Proton density T2-weighted and FLAIR images reveal scattered foci of increased T2 signal within the white matter, likely on a small vessel basis. There are no abnormal flow voids. There is no evidence of pathologic enhancement. There is fluid within the posterior nasopharynx. There are maxillary sinus retention cysts. IMPRESSION: 1. Examination compromised secondary to patient motion 2. No acute intracranial findings. No evidence of acute or subacute infarction. No evidence for intracranial mass. ] CHEST ONE VIEW PORTABLE CLINICAL HISTORY: Intubated RESPIRATORY FAILURE COMPARISON STUDY: N 2117 FINDINGS: The cardiac and mediastinal contours are normal. There is a nasogastric tube which passes into the stomach. There is an endotracheal tube 4 cm above the madelin. There is no failure. There is no focal pulmonary consolidation.[ No pleural effusions are visualized. IMPRESSION: Endotracheal tube 4 cm above the madelin. Nasogastric tube passing into the stomach. No evidence of focal pulmonary consolidation. -no evidence of pericardial effusion and grossly normal biventricular function. -normal biventricular systolic function -No significant valvular regurgitation was noted with aortic valve, tricuspid valve, mitral valve. -The aortic valve was tricuspid in morphology with normal excursion and no . Data Medications: Current Inpatient Medications Medications (Trade) Dose Ordered Sig/Brook Route Start Time Stop Time Status Last Admin Dose Admin Enoxaparin Sodium (Lovenox Inj) 40 mg Q24H SQ 10/13/17 08:00 11/12/17 07:59 10/18/17 08:31 40 MG Artificial Tears (Lacri-Lube Oph Oint) 1 appln Q2H PRN OPB 10/13/17 05:30 11/12/17 05:29 10/18/17 08:48 1 APPLN Pantoprazole Sodium 40 mg/ Syringe 10 ml @ 5 mls/min DAILY@11 IV 10/13/17 11:00 11/12/17 10:59 10/17/17 11:22 5 MLS/MIN Oseltamivir Phosphate (Tamiflu Susp) 75 mg BID NG 10/13/17 11:00 10/18/17 10:59 10/18/17 08:49 75 MG Aspirin (Aspirin Chew) 81 mg QAM PO 10/13/17 13:00 11/12/17 12:59 10/18/17 08:49 81 MG Enteral Nutritional Formula (Peptamen Intense VHP) 1,000 ml UD PRN OG 10/13/17 13:30 11/12/17 13:29 10/17/17 13:19 1,000 ML Senna (Senokot Tab) 8.6 mg QAM PRN PO 10/14/17 10:45 11/13/17 10:44 Ipratropium [place] (Atrovent Hfa Inhaler) 4 puffs Q4R INH 10/14/17 20:00 11/13/17 19:59 10/18/17 03:35 4 PUFFS Albuterol (Ventolin Hfa Inhaler) 4 puffs Q4R INH 10/14/17 20:00 11/13/17 19:59 10/18/17 03:35 4 PUFFS Gadobutrol (Gadavist) 6.5 mmol UD PRN IV 10/15/17 02:20 10/19/17 02:19 Metoprolol Tartrate (Lopressor Iv) 5 mg Q6 PRN IV 10/15/17 12:30 11/14/17 12:29 10/17/17 06:07 5 MG Midazolam HCl (Versed Inj) 2 mg Q2H PRN IV 10/15/17 12:30 11/14/17 12:29 Fentanyl Citrate (Fentanyl Inj) 50 mcg Q2H PRN IV 10/15/17 12:30 10/29/17 12:29 10/18/17 03:59 50 MCG Polyethylene (Miralax Powder Packet) 17 gm QAM PO 10/15/17 12:30 11/14/17 12:29 10/18/17 08:31 17 GM Amlodipine Besylate (Norvasc Tab) 10 mg QAM PO 10/16/17 09:00 11/15/17 08:59 10/18/17 08:31 10 MG Metoprolol Tartrate (Lopressor Tab) 75 mg BID PO 10/17/17 09:00 11/16/17 08:59 10/18/17 08:32 75 MG Vital Signs: Date Time Temp Pulse Resp B/P (MAP) Pulse Ox O2 Delivery O2 Flow Rate FiO2 10/18/17 09:30 38.1 80 26 168/113 (131) 94 Mechanical Ventilator 4.0 50 10/18/17 07:30 50 10/18/17 07:30 93 Mechanical Ventilator 50 10/18/17 07:20 50 10/18/17 06:01 38.1 114 27 129/86 (89) 93 10/18/17 05:30 50 10/18/17 05:01 38.1 109 25 145/106 (114) 92 10/18/17 04:01 38.1 101 22 148/86 (109) 90 10/18/17 04:00 96 Mechanical Ventilator 50 10/18/17 04:00 50 10/18/17 03:25 50 10/18/17 03:01 38.2 109 29 150/101 (119) 95 10/18/17 02:31 38.1 105 26 152/92 (111) 96 10/18/17 02:01 38.1 102 24 156/98 (124) 96 10/18/17 01:31 37.9 97 23 153/97 (112) 97 10/18/17 01:01 37.8 92 23 148/93 (104) 96 10/18/17 00:31 37.8 95 27 170/92 (104) 95 10/18/17 00:01 37.8 92 27 148/91 (105) 96 10/17/17 23:59 96 Mechanical Ventilator 50 10/17/17 23:59 50 10/17/17 23:44 37.8 94 28 153/85 (95) 97 10/17/17 23:01 38.0 76 26 179/107 (130) 98 10/17/17 22:40 50 10/17/17 22:01 38.0 90 25 172/108 (120) 96 10/17/17 21:01 37.9 99 24 176/101 (120) 95 10/17/17 20:01 37.9 105 28 176/102 (118) 95 10/17/17 20:00 50 10/17/17 20:00 96 Mechanical Ventilator 50 10/17/17 19:05 50 10/17/17 19:01 37.7 98 27 170/96 (116) 95 10/17/17 17:53 37.8 90 24 173/114 (133) 96 Mechanical Ventilator 50 10/17/17 17:45 50 10/17/17 17:01 37.8 99 25 173/114 (143) 94 10/17/17 17:00 37.8 93 25 94 10/17/17 16:01 37.7 92 23 141/89 (108) 94 10/17/17 16:00 37.7 90 23 94 10/17/17 16:00 Mechanical Ventilator 50 10/17/17 16:00 50 10/17/17 15:31 37.8 97 26 160/102 (119) 94 10/17/17 15:01 37.8 89 27 160/93 (112) 96 10/17/17 15:00 37.8 92 24 96 10/17/17 14:59 50 10/17/17 14:31 37.8 89 25 164/97 (123) 96 10/17/17 14:01 37.8 88 24 152/97 (121) 94 10/17/17 14:00 37.8 86 23 94 10/17/17 13:31 37.9 89 25 156/99 (111) 93 10/17/17 13:30 37.9 79 21 92 10/17/17 13:30 37.8 90 25 159/66 (97) 93 Mechanical Ventilator 50 10/17/17 13:01 37.9 88 27 156/93 (110) 91 10/17/17 13:00 37.9 81 23 91 10/17/17 12:31 38.0 87 25 146/90 (104) 89 10/17/17 12:30 38.0 85 25 90 10/17/17 12:01 38.1 84 26 161/100 (109) 91 10/17/17 12:00 50 10/17/17 12:00 Mechanical Ventilator 50 10/17/17 12:00 38.1 86 27 91 10/17/17 11:32 50 10/17/17 11:31 38.2 81 26 163/97 (110) 97 10/17/17 11:30 38.3 81 26 97 10/17/17 11:12 37.5 81 26 174/99 (121) 98 10/17/17 11:01 37.6 78 26 178/99 (121) 97 10/17/17 11:00 37.5 79 26 97 Laboratory Results: Last 24 Hours Test 10/18/17 05:19 10/18/17 05:54 White Blood Count 10.73 K/uL Red Blood Count 5.31 M/uL Hemoglobin 16.4 g/dL Hematocrit 50.1 % Mean Corpuscular Volume 94.4 fL Mean Corpuscular Hemoglobin 30.9 pg Mean Corpuscular Hemoglobin Concent 32.7 g/dl Platelet Count 236 K/uL Mean Platelet Volume 10.3 fL Neutrophils (%) (Auto) 70.2 % Lymphocytes (%) (Auto) 12.3 % Monocytes (%) (Auto) 16.7 % Eosinophils (%) (Auto) 0.0 % Basophils (%) (Auto) 0.2 % Neutrophils # (Auto) 7.54 K/uL Lymphocytes # (Auto) 1.32 K/uL Monocytes # (Auto) 1.79 K/uL Eosinophils # (Auto) 0.00 K/uL Basophils # (Auto) 0.02 K/uL RDW Standard Deviation 48.5 fL RDW Coefficient of Variation 14.1 % Immature Granulocyte % (Auto) 0.6 % Immature Granulocyte # (Auto) 0.06 K/uL Venous Blood pH 7.49 Venous Blood Partial Pressure CO2 44 mmHg Venous Blood Partial Pressure O2 62 mmHg Venous Blood HCO3 32 mmol/L Venous Blood Oxygen Saturation 92.7 % Venous Blood Base Excess 7.9 mEq/L Sodium Level 143 mmol/L Potassium Level 3.9 mmol/L Chloride Level 106 mmol/L Carbon Dioxide Level 33 mmol/L Anion Gap 4.0 mmol/L Blood Urea Nitrogen 50 mg/dl Creatinine 0.69 mg/dl Est Creatinine Clear Calc Drug Dose 96.2 ml/min Estimated GFR () 117.9 Estimated GFR (Non- 101.7 BUN/Creatinine Ratio 73.1 Random Glucose 180 mg/dl Calcium Level 9.2 mg/dl Phosphorus Level 2.7 mg/dl Magnesium Level 2.7 mg/dl Bedside Glucose 148 mg/dl Resident Tracking Resident Involvement: Resident Care Provided Care Provided: Adult Hospital Medicine
[2017-10-18] MEDS: PANTOprazole INJ 40 MG in SYRINGE 0 ML IV SCH (11:57)
--- NOTE | 2017-10-18 12:26 | PROGRESS NOTE ---
DATE: 10/18/2017 SUBJECTIVE: Liborio looks even worse today. The corneal reflex is essentially gone and there is absolutely no grimacing to facial stimuli. I think both toes are upgoing and there is a little bit of withdrawal to noxious stimuli in the feet but nothing in the hands, and no spontaneous eye movements are noted. Pupils remain mid position and sluggishly reactive. Apparently, the family is on route to try to make a final decision today. I think this is going to end up at most a persistent vegetative state. He is able to breathe on his own. He is on respiratory support with CPAP and if the family wants to offer comfort care then nothing more needs to be done but if they are opting for a little more time then he is going to eventually need a tracheostomy and a PEG tube. Hopefully, it will not come to this, as I think his prognosis is extremely poor, particularly in light of the fact that he continues to decline daily post-arrest. I will check back with him tomorrow. KALPANA
[2017-10-18] MEDS: METOPROLOL TARTRATE 1 MG/ML VIAL IV PRN (12:36)
[2017-10-18] MEDS ORDERED: LORAZEPAM INJ 50 MG in D5W 50ML IN *POLYOLEFIN BAG* 25 ML IV PRN ×2 (14:59)
--- NOTE | 2017-10-18 15:29 | Palliative Care Progress Note ---
Palliative Care Progress Note Date of Service Oct 18, 2017. Subjective Pt evaluation today including: conversation w/ family, physical exam, chart review, conversation w/ loan consultant Pain: no physical signs of pain PO Intake: Tube feeds Voiding: arriaga catheter in place Met with family at bedside, discussed options for care - family and friend decided for extubation followed by comfort care. Family recited Psalm 23 prior to extubation. Tube feeds stopped and pt extubated at 1504, no response to suctioning, no cough. Pt placed on O2 via NC. Pt appears comfortable, family brought back to room. Review of Systems ROS unable to obtain - pt unresponsive Objective Vital Signs Date Time Temp Pulse Resp B/P (MAP) Pulse Ox O2 Delivery O2 Flow Rate FiO2 10/18/17 14:29 50 10/18/17 14:01 38.5 96 32 165/104 (119) 92 10/18/17 14:00 38.5 113 32 165/104 (124) 94 Mechanical Ventilator 50 10/18/17 14:00 38.5 99 31 91 10/18/17 13:01 38.3 99 32 161/101 (110) 94 10/18/17 13:00 38.3 98 31 94 10/18/17 12:36 38.2 111 30 185/107 (139) 92 10/18/17 12:36 125 185/107 10/18/17 12:01 38.1 90 24 138/76 (97) 90 10/18/17 12:00 38.1 102 25 91 10/18/17 11:49 37.6 10/18/17 11:30 50 10/18/17 11:30 Mechanical Ventilator 50 10/18/17 11:15 50 10/18/17 11:01 38.2 95 32 177/107 (122) 93 10/18/17 11:01 38.2 95 32 177/107 (122) 93 10/18/17 11:00 38.2 98 31 93 10/18/17 11:00 38.2 98 31 93 10/18/17 10:01 38.3 89 32 172/107 (120) 94 10/18/17 10:00 38.3 90 32 95 10/18/17 09:30 38.1 80 26 168/113 (131) 94 Mechanical Ventilator 4.0 50 10/18/17 09:01 38.2 105 30 168/113 (132) 94 10/18/17 09:00 38.2 94 30 94 10/18/17 08:01 38.2 109 29 165/105 (125) 92 10/18/17 08:00 38.2 112 30 92 10/18/17 07:30 50 10/18/17 07:30 93 Mechanical Ventilator 50 10/18/17 07:20 50 10/18/17 07:01 38.1 109 28 162/113 (138) 91 10/18/17 07:00 38.1 104 28 91 10/18/17 06:01 38.1 114 27 129/86 (89) 93 10/18/17 05:30 50 10/18/17 05:01 38.1 109 25 145/106 (114) 92 10/18/17 04:01 38.1 101 22 148/86 (109) 90 10/18/17 04:00 96 Mechanical Ventilator 50 10/18/17 04:00 50 10/18/17 03:25 50 10/18/17 03:01 38.2 109 29 150/101 (119) 95 10/18/17 02:31 38.1 105 26 152/92 (111) 96 10/18/17 02:01 38.1 102 24 156/98 (124) 96 10/18/17 01:31 37.9 97 23 153/97 (112) 97 10/18/17 01:01 37.8 92 23 148/93 (104) 96 10/18/17 00:31 37.8 95 27 170/92 (104) 95 10/18/17 00:01 37.8 92 27 148/91 (105) 96 10/17/17 23:59 96 Mechanical Ventilator 50 10/17/17 23:59 50 10/17/17 23:44 37.8 94 28 153/85 (95) 97 10/17/17 23:01 38.0 76 26 179/107 (130) 98 10/17/17 22:40 50 10/17/17 22:01 38.0 90 25 172/108 (120) 96 10/17/17 21:01 37.9 99 24 176/101 (120) 95 10/17/17 20:01 37.9 105 28 176/102 (118) 95 10/17/17 20:00 50 10/17/17 20:00 96 Mechanical Ventilator 50 10/17/17 19:05 50 10/17/17 19:01 37.7 98 27 170/96 (116) 95 10/17/17 17:53 37.8 90 24 173/114 (133) 96 Mechanical Ventilator 50 10/17/17 17:45 50 10/17/17 17:01 37.8 99 25 173/114 (143) 94 10/17/17 17:00 37.8 93 25 94 10/17/17 16:01 37.7 92 23 141/89 (108) 94 10/17/17 16:00 37.7 90 23 94 10/17/17 16:00 Mechanical Ventilator 50 10/17/17 16:00 50 10/17/17 15:31 37.8 97 26 160/102 (119) 94 Physical Exam General Appearance: no apparent distress Eyes: PERRL Neck: trachea midline Respiratory/Chest: + decreased breath sounds Cardiovascular: + tachycardia Abdomen: + pertinent finding (decreased BS) Extremities: no pedal edema Neurologic/Psychiatric: + pertinent finding (unresponsive) Skin: warm/dry Laboratory Results Last 24 Hours Test 10/18/17 05:19 10/18/17 05:54 White Blood Count 10.73 K/uL Red Blood Count 5.31 M/uL Hemoglobin 16.4 g/dL Hematocrit 50.1 % Mean Corpuscular Volume 94.4 fL Mean Corpuscular Hemoglobin 30.9 pg Mean Corpuscular Hemoglobin Concent 32.7 g/dl Platelet Count 236 K/uL Mean Platelet Volume 10.3 fL Neutrophils (%) (Auto) 70.2 % Lymphocytes (%) (Auto) 12.3 % Monocytes (%) (Auto) 16.7 % Eosinophils (%) (Auto) 0.0 % Basophils (%) (Auto) 0.2 % Neutrophils # (Auto) 7.54 K/uL Lymphocytes # (Auto) 1.32 K/uL Monocytes # (Auto) 1.79 K/uL Eosinophils # (Auto) 0.00 K/uL Basophils # (Auto) 0.02 K/uL RDW Standard Deviation 48.5 fL RDW Coefficient of Variation 14.1 % Immature Granulocyte % (Auto) 0.6 % Immature Granulocyte # (Auto) 0.06 K/uL Venous Blood pH 7.49 Venous Blood Partial Pressure CO2 44 mmHg Venous Blood Partial Pressure O2 62 mmHg Venous Blood HCO3 32 mmol/L Venous Blood Oxygen Saturation 92.7 % Venous Blood Base Excess 7.9 mEq/L Sodium Level 143 mmol/L Potassium Level 3.9 mmol/L Chloride Level 106 mmol/L Carbon Dioxide Level 33 mmol/L Anion Gap 4.0 mmol/L Blood Urea Nitrogen 50 mg/dl Creatinine 0.69 mg/dl Est Creatinine Clear Calc Drug Dose 96.2 ml/min Estimated GFR () 117.9 Estimated GFR (Non- 101.7 BUN/Creatinine Ratio 73.1 Random Glucose 180 mg/dl Calcium Level 9.2 mg/dl Phosphorus Level 2.7 mg/dl Magnesium Level 2.7 mg/dl Bedside Glucose 148 mg/dl Assessment and Plan (1) Influenza A Status: Acute Assessment & Plan: Completed Tamiflu (2) COPD with exacerbation Status: Acute Assessment & Plan: On Duonebs Q 4 hours (3) Acute respiratory failure Status: Acute Assessment & Plan: Pt extubated at 1504 - now on NC (4) Cardiac arrest Status: Acute Assessment & Plan: Now on comfort care Time in 1400 Time out 1530 with > 50% of time spent at bedside counseling family and assisting with medical decision making Palliative Performance Scale: 10 % Continued [facility] stay due to: other Discharge planning: uncertain
[2017-10-18] MEDS: MoRPHine SULF/NSS 250MG/250ML 250 ML IV PRN ×2 (15:57→23:44)
--- NOTE | 2017-10-18 18:02 | Progress Note ---
Internal Med Progress Note Date of Service: Oct 18, 2017. Provider Documentation: SUBJECTIVE: family visited today critical care d/w family and decided for comfort care only s/p terminal extubation Vital Signs-as noted below Exam: General- s/p terminal extubation Neck-no neck masses seen Lungs-cta b/l no wheezing or crackles heard Heart-s1 and s2 heard tachycardia Abdomen-soft bowel sounds present non tender no distension Extremities-no erythema Neuro- no response to painful stimuli Lab data as noted below. ASSESSMENT & PLAN: Patient is a 62 year old male presented secondary to respiratory distress and subsequently cardiopulmonary arrest Cardiopulmonary Arrest likely from Acute Hypoxic-Hypercapnic Respiratory Failure Possible Asthma/COPD Exacerbation from Influenza Influenza A Pcr on iv steroids and Tamiflu positive cultures no growth so far appreciate critical care and cardiology inputs having temp spikes- to monitor family visited and after d/w critical care decided for comfort care only s/p terminal extubation and on morphine drip Vent Dependent respiratory failure secondary to above vent management and weaning as per critical care. s/p terminal extubation and on morphine drip Encephalopathy unresponsive brain injury from hypoxia? continue to monitor and supportive care family meeting and decided for comfort care Elevated Lactic Acid will monitor levels Medical Records needs to obtain medical records re: past medical history and medications moreira the friend Linsey to obtain more information re: medical history , PCP, medications but was not able to contact him Cousin is Fatemeh Del Rosario (ph: [phone]). DVT ppx Lovenox Disposition comfort care transfer to medical floor Vital Signs: Date Time Temp Pulse Resp B/P (MAP) Pulse Ox O2 Delivery O2 Flow Rate FiO2 10/18/17 15:00 50 10/18/17 15:00 Mechanical Ventilator 50 10/18/17 14:29 50 10/18/17 14:01 38.5 96 32 165/104 (119) 92 10/18/17 14:00 38.5 113 32 165/104 (124) 94 Mechanical Ventilator 50 10/18/17 14:00 38.5 99 31 91 10/18/17 13:01 38.3 99 32 161/101 (110) 94 10/18/17 13:00 38.3 98 31 94 10/18/17 12:36 38.2 111 30 185/107 (139) 92 10/18/17 12:36 125 185/107 10/18/17 12:01 38.1 90 24 138/76 (97) 90 10/18/17 12:00 38.1 102 25 91 10/18/17 11:49 37.6 10/18/17 11:30 50 10/18/17 11:30 Mechanical Ventilator 50 10/18/17 11:15 50 10/18/17 11:01 38.2 95 32 177/107 (122) 93 10/18/17 11:01 38.2 95 32 177/107 (122) 93 10/18/17 11:00 38.2 98 31 93 10/18/17 11:00 38.2 98 31 93 10/18/17 10:01 38.3 89 32 172/107 (120) 94 10/18/17 10:00 38.3 90 32 95 10/18/17 09:30 38.1 80 26 168/113 (131) 94 Mechanical Ventilator 4.0 50 10/18/17 09:01 38.2 105 30 168/113 (132) 94 10/18/17 09:00 38.2 94 30 94 10/18/17 08:01 38.2 109 29 165/105 (125) 92 10/18/17 08:00 38.2 112 30 92 10/18/17 07:30 50 10/18/17 07:30 93 Mechanical Ventilator 50 10/18/17 07:20 50 10/18/17 07:01 38.1 109 28 162/113 (138) 91 10/18/17 07:00 38.1 104 28 91 10/18/17 06:01 38.1 114 27 129/86 (89) 93 10/18/17 05:30 50 10/18/17 05:01 38.1 109 25 145/106 (114) 92 10/18/17 04:01 38.1 101 22 148/86 (109) 90 10/18/17 04:00 96 Mechanical Ventilator 50 10/18/17 04:00 50 10/18/17 03:25 50 10/18/17 03:01 38.2 109 29 150/101 (119) 95 10/18/17 02:31 38.1 105 26 152/92 (111) 96 10/18/17 02:01 38.1 102 24 156/98 (124) 96 10/18/17 01:31 37.9 97 23 153/97 (112) 97 10/18/17 01:01 37.8 92 23 148/93 (104) 96 10/18/17 00:31 37.8 95 27 170/92 (104) 95 10/18/17 00:01 37.8 92 27 148/91 (105) 96 10/17/17 23:59 96 Mechanical Ventilator 50 10/17/17 23:59 50 10/17/17 23:44 37.8 94 28 153/85 (95) 97 10/17/17 23:01 38.0 76 26 179/107 (130) 98 10/17/17 22:40 50 10/17/17 22:01 38.0 90 25 172/108 (120) 96 10/17/17 21:01 37.9 99 24 176/101 (120) 95 10/17/17 20:01 37.9 105 28 176/102 (118) 95 10/17/17 20:00 50 10/17/17 20:00 96 Mechanical Ventilator 50 10/17/17 19:05 50 10/17/17 19:01 37.7 98 27 170/96 (116) 95 Lab Results: Results Past 24 Hours Test 10/18/17 05:19 10/18/17 05:54 Range/Units White Blood Count 10.73 4.8-10.8 K/uL Red Blood Count 5.31 4.7-6.1 M/uL Hemoglobin 16.4 14.0-18.0 g/dL Hematocrit 50.1 42-52 % Mean Corpuscular Volume 94.4 80-100 fL Mean Corpuscular Hemoglobin 30.9 25-34 pg Mean Corpuscular Hemoglobin Concent 32.7 32-36 g/dl Platelet Count 236 130-400 K/uL Mean Platelet Volume 10.3 7.4-10.4 fL Neutrophils (%) (Auto) 70.2 % Lymphocytes (%) (Auto) 12.3 % Monocytes (%) (Auto) 16.7 % Eosinophils (%) (Auto) 0.0 % Basophils (%) (Auto) 0.2 % Neutrophils # (Auto) 7.54 1.4-6.5 K/uL Lymphocytes # (Auto) 1.32 1.2-3.4 K/uL Monocytes # (Auto) 1.79 0.11-0.59 K/uL Eosinophils # (Auto) 0.00 0-0.5 K/uL Basophils # (Auto) 0.02 0-0.2 K/uL RDW Standard Deviation 48.5 36.4-46.3 fL RDW Coefficient of Variation 14.1 11.5-14.5 % Immature Granulocyte % (Auto) 0.6 % Immature Granulocyte # (Auto) 0.06 0.00-0.02 K/uL Venous Blood pH 7.49 7.36-7.41 Venous Blood Partial Pressure CO2 44 38.0-50.0 mmHg Venous Blood Partial Pressure O2 62 mmHg Venous Blood HCO3 32 mmol/L Venous Blood Oxygen Saturation 92.7 % Venous Blood Base Excess 7.9 mEq/L Sodium Level 143 136-145 mmol/L Potassium Level 3.9 3.5-5.1 mmol/L Chloride Level 106 98-107 mmol/L Carbon Dioxide Level 33 21-32 mmol/L Anion Gap 4.0 3-11 mmol/L Blood Urea Nitrogen 50 7-18 mg/dl Creatinine 0.69 0.60-1.40 mg/dl Est Creatinine Clear Calc Drug Dose 96.2 ml/min Estimated GFR () 117.9 Estimated GFR (Non- 101.7 BUN/Creatinine Ratio 73.1 10-20 Random Glucose 180 70-99 mg/dl Calcium Level 9.2 8.5-10.1 mg/dl Phosphorus Level 2.7 2.5-4.9 mg/dl Magnesium Level 2.7 1.8-2.4 mg/dl Bedside Glucose 148 70-99 mg/dl
[2017-10-18] MEDS ORDERED: NURSING DECISION MEDICATION ORDER SCH (22:15)
[2017-10-18] MEDS ORDERED: ARTIFICIAL TEARS OP SOLN OP PRN ×2 (22:30)
[2017-10-19 04:01] VITALS: PULSE 90; O2SAT 90
[2017-10-19 08:00] VITALS: O2SAT 80
[2017-10-19] MEDS ORDERED: SCOPOLAMINE 1.5 MG TDSY TD SCH (13:00)
[2017-10-19] MEDS: MoRPHine SULF/NSS 250MG/250ML 250 ML IV PRN ×2 (13:19→15:04)
--- NOTE | 2017-10-19 13:36 | PROGRESS NOTE ---
DATE: 10/19/2017 SUBJECTIVE: Liborio has been moved up to the fourth floor and may appear comfort care case. He has been extubated. He is going to receive as needed, sedative hypnotics and analgesics and at this point, he is do not resuscitate and do not intubate status. Neurology is going to sign off the case at this time.
[2017-10-19] MEDS ORDERED: MoRPHine SULFATE 2 MG/ML CARP IV PRN (14:30)
[2017-10-19] MEDS ORDERED: CHECK SCOPOLAMINE PATCH PLACEMENT SCH (16:00)
--- NOTE | 2017-10-19 16:44 | Progress Note ---
Internal Med Progress Note Date of Service: Oct 19, 2017. Provider Documentation: SUBJECTIVE: patient was terminal extubated yesterday and on comfort measures stopped breathing today at 1540. Vital Signs-as noted below Exam: General- unresponsive Eyes: Pupils dilated and fixed and non reactive to light Neck-no carotid pulse palpable Lungs- no spontaneous breathing seen. No breath sounds on auscultation Heart- no heart sounds heard on auscultation Lab data as noted below. ASSESSMENT & PLAN: Patient is a 62 year old male presented secondary to respiratory distress and subsequently cardiopulmonary arrest Likely from acute hypoxic hypercapnic respiratory failure possible from asthma/copd ex. Influenza a positive. Was intubated.Was placed on iv steroids, initially received abx. Was placed on Tamiflu.Patinet continued to remain unrepsove even off of sedation and workup with MRI head and eeg unrevealing. Encephalopathy thought vto be from hypoxic brain injury. Family decided for comfort care and patient was extubated and placed on nasal canula on 10/18/17.Patient was started on morphine drip and comfort measures. patient today 10/19/17 at 1540pm. Hospital course: Cardiopulmonary Arrest likely from Acute Hypoxic-Hypercapnic Respiratory Failure Possible Asthma/COPD Exacerbation from Influenza Influenza A Pcr on iv steroids and Tamiflu positive cultures no growth so far appreciate critical care and cardiology inputs having temp spikes- to monitor family visited and after d/w critical care decided for comfort care only s/p terminal extubation and on morphine drip Vent Dependent respiratory failure secondary to above vent management and weaning as per critical care. s/p terminal extubation and on morphine drip Encephalopathy unresponsive brain injury from hypoxia? continue to monitor and supportive care family meeting and decided for comfort care Elevated Lactic Acid will monitor levels Medical Records needs to obtain medical records re: past medical history and medications moreira the friend Linsey to obtain more information re: medical history , PCP, medications but was not able to contact him Cousin is Fatemeh Del Rosario (ph: [phone]). patient . Vital Signs: Date Time Temp Pulse Resp B/P (MAP) Pulse Ox O2 Delivery O2 Flow Rate FiO2 10/19/17 08:00 80 Nasal Cannula 4.0 10/19/17 04:01 90 12 90 Nasal Cannula 4.0 10/19/17 00:30 Nasal Cannula 4.0 10/18/17 18:09 38.5 166 32 92 4.0
--- NOTE | 2017-10-19 18:03 | Discharge Summary ---
Discharge Summary Date of Service Oct 19, 2017. Discharge Summary Admission Date: Oct 13, 2017 at 05:04 Discharge Disposition: Home () Principal Diagnosis: Cardiopulmonary Arrest likely from Acute Hypoxic-Hypercapnic Respiratory Failure Possible Asthma/COPD Exacerbation from Influenza Vent Dependent respiratory failure Encephalopathy unresponsive brain injury from hypoxia? Procedures: cxr: The endotracheal tube terminates 3.3 cm from the [place] CT HEAD: No acute intracranial abnormality. Atrophy and microvascular ischemic changes. BRAIN MRA: No significant stenosis, occlusion, or aneurysm within the [place]. BRAIN MRI: 1. Examination compromised secondary to patient motion 2. No acute intracranial findings. No evidence of acute or subacute infarction. No evidence for intracranial mass. ECHO: * -- Conclusions -- * The study was technically limited due to poor acoustic windows with patient on mechanical ventilation. * Limited views were therefore obtained. Procedure Details * Limited views were obtained. * The study was technically difficult. * There were technical limitations due to patient's supine positioning while on mechanical ventilation Left Ventricle * The left ventricle is grossly normal size. * There is normal left ventricular wall thickness. * The left ventricular ejection fraction is grossly normal. * The images are insufficient to allow assessment of regional wall motion. Right Ventricle * The right ventricular chamber size and systolic function are grossly normal. Mitral Valve * There is no mitral valve stenosis. * There is no mitral regurgitation noted. Tricuspid Valve * The tricuspid valve is not well visualized. Aortic Valve * Aortic valve stenosis is not assessed. * There is no significant aortic regurgitation. Pulmonic Valve * The PV is not visualized. Pericardium/Pleural * There is no pericardial effusion. Great Vessels * Normal inferior vena cava size and collapsability with sniff indicates a normal right atrial pressure of 3 mmHg * * S/P EEG Consultations: CRITICAL CARE CARDIOLOGY NEUROLOGY PALLIATIVE CARE Admission Information HPI (per Admitting provider): This is a 62 year old male who called EMS earlier today; the records are obtained from EMS and ED physician. Pt. called EMS due to respiratory distress - EMS was giving a neb treatment en route to the ED and noted that he became severely hypoxic in the 70s. Subsequently developed cardiopulmonary arrest - CPR was performed for around 3-4 minutes - he was given epinephrine, Mg, and solu-medrol - Was intubated. Upon presentation to the ED - noted to have a fever. Lab work was performed and he was noted to have lactic acidosis. ABGs suggested significant acidosis and hypercapnia. Patient on propofol ip and intubated at this time. Physical Exam (per Admitting): General Appearance: + pertinent finding (Patient intubated, sedated) Head: normocephalic, atraumatic Eyes: normal inspection ENT: hearing grossly normal Respiratory/Chest: no respiratory distress, no accessory muscle use, + pertinent finding (intubated) Cardiovascular: regular rate, rhythm, no edema, no murmur Abdomen/GI: normal bowel sounds, non tender, soft Genitourinary - Male: + pertinent finding (+Banda) Extremities/Musculoskelatal: normal inspection, no calf tenderness, normal capillary refill, no pedal edema, normal range of motion Neurologic/Psych: + pertinent finding (intubated, sedated, not responding to verbal or tactile stimuli) Skin: + pertinent finding (+pale) Hospital Course Patient is a 62 year old male presented secondary to respiratory distress and subsequently cardiopulmonary arrest Likely from acute hypoxic hypercapnic respiratory failure possible from asthma/copd ex. Influenza a positive. Was intubated.Was placed on iv steroids, initially received abx. Was placed on Tamiflu.Patinet continued to remain unrepsove even off of sedation and workup with MRI head and eeg unrevealing. Encephalopathy thought vto be from hypoxic brain injury. Family decided for comfort care and patient was extubated and placed on nasal canula on 10/18/17.Patient was started on morphine drip and comfort measures. patient today 10/19/17 at 1540pm. Hospital course: Cardiopulmonary Arrest likely from Acute Hypoxic-Hypercapnic Respiratory Failure Possible Asthma/COPD Exacerbation from Influenza Influenza A Pcr on iv steroids and Tamiflu positive cultures no growth so far appreciate critical care and cardiology inputs having temp spikes- to monitor family visited and after d/w critical care decided for comfort care only s/p terminal extubation and on morphine drip Vent Dependent respiratory failure secondary to above vent management and weaning as per critical care. s/p terminal extubation and on morphine drip Encephalopathy unresponsive brain injury from hypoxia? continue to monitor and supportive care family meeting and decided for comfort care Elevated Lactic Acid will monitor levels Medical Records needs to obtain medical records re: past medical history and medications moreira the friend Linsey to obtain more information re: medical history , PCP, medications but was not able to contact him Cousin is Fatemeh Del Rosario (ph: [phone]). patient . Total time spent on discharge = 30MINUTES This includes examination of the patient, discharge planning, medication reconciliation, and communication with other providers. Discharge Instructions NO D/C INSTRUCTIONS PATIENT
[2017-10-20 15:08] LABS: ISTAT ARTERIAL BLOOD GAS pH 7.42 (7.35-7.45)
[2017-10-20 15:09] LABS: ISTAT ARTERIAL BLOOD GAS HCO3 34 meq/L (19-24); ISTAT ARTERIAL BLOOD GAS PCO2 53 mmHg (35-46); ISTAT ARTERIAL BLOOD GAS PO2 107 mmHg (80-95); ISTAT CARBON DIOXIDE 35 mEq/l (24-31); ISTAT FIO2 40 %
[2017-10-20 15:10] LABS: ISTAT DELIVERY SYSTEM Ventilator; ISTAT PEEP 5; ISTAT SAMPLE TYPE ARTERIAL; ISTAT SITE R Radial
[2017-10-20 15:11] LABS: ISTAT SPO2 96 %
== END 2017-10-19 15:40 | disposition expired | DRG 207 ==
LOC: EDBD 03:49 → C.EDB 03:51 → C.MSICU 05:04 → UNDOADMIN 05:04 → EDBEDREQ 05:17 → ENRESERV 05:37 → C.4E 10-18 18:59
PROVIDERS: ADMIT Family Medicine; ATTEND Internal Medicine
PROC: 5A1955Z Respiratory Ventilation, Greater than 96 Consecutive Hours (ICD-10-PCS; 2017-10-13)
PROC: 03HY32Z Insertion of Monitoring Device into Upper Artery, Percutaneous Approach (ICD-10-PCS; 2017-10-13)
PROC: 0BH18EZ Insertion of Endotracheal Airway into Trachea, Via Natural or Artificial Opening Endoscopic (ICD-10-PCS; principal; 2017-10-14)
DX: J96.01 Acute respiratory failure with hypoxia (principal); J44.1 Chronic obstructive pulmonary disease with (acute) exacerbation; Z99.11 Dependence on respirator [ventilator] status; G93.40 Encephalopathy, unspecified; G93.1 Anoxic brain damage, not elsewhere classified; J10.1 Influenza due to other identified influenza virus with other respiratory manifestations; I46.8 Cardiac arrest due to other underlying condition; Z51.5 Encounter for palliative care; J96.02 Acute respiratory failure with hypercapnia